=== PATIENT | male | born 1955 | race Asian ===

== ENCOUNTER 2020-08-06 09:58 | Outpatient (REF) | payer MEDICARE, MEDICAID, SELFPAY | END 2020-08-06 09:59 | disposition home or self-care (01) | LOC: HO.WFDLDS 09:58 | PROVIDERS: Visit Provider Internal Medicine | DX: Z20.828 Contact with and (suspected) exposure to other viral communicable diseases (principal) | CPT/HCPCS: C9803; U0003 ==

== ENCOUNTER 2021-01-07 13:42 | Outpatient (REF) | payer MEDICARE, MEDICAID, SELFPAY ==
[2021-01-07 13:58] LABS: Glucose Urine UA NEG (NEG); Leukocyte Esterase Urine NEG (NEG); Nitrite Urine NEG (NEG); PH 6.5 (5.0-8.0); Urine Blood NEG (NEG); Urine Ketones NEG (NEG); Urine Protein NEG (NEG-TRACE)
[2021-01-07 13:59] LABS: Appearance Urine CLEAR; Color Urine YELLOW
== END 2021-01-07 13:43 | disposition home or self-care (01) ==
LOC: HO.LNP 13:42
PROVIDERS: Visit Provider Family Medicine
DX: M54.5 Low back pain (principal)
CPT/HCPCS: 81003

== ENCOUNTER 2021-02-25 09:59 | Outpatient (REF) | payer MEDICARE, MEDICAID, SELFPAY ==
[2021-02-25 11:18] LABS: Glucose Urine UA NEG (NEG); Leukocyte Esterase Urine NEG (NEG); Nitrite Urine NEG (NEG); Urine Blood NEG (NEG); Urine Ketones NEG (NEG); Urine Protein NEG (NEG-TRACE)
[2021-02-25 11:22] LABS: Appearance Urine CLEAR; Color Urine YELLOW
[2021-02-25 12:04] LABS: Hematocrit 46.7 % (42-52); Hemoglobin 15.2 g/dl (14.0-18.0); Mean Corpuscular HGB Conc 32.5 g/dl (31.0-36.0); Mean Corpuscular Hemoglobin 27.8 pg (27.0-33.0); Mean Corpuscular Volume 85.5 fL (80-98); Mean Platelet Volume 9.5 fL (9.4-12.4); Platelet Count 263 X10*3/uL (160-400); Red Blood Count 5.46 X10*6/uL (4.60-5.80); Red Cell Distribution Width 13.6 % (11.0-16.0); White Blood Count 5.7 X10*3/uL (4.8-10.8)
[2021-02-25 12:19] LABS: Estimated Average Glucose 120 mg/dL; Hemoglobin A1c % 5.8 %
[2021-02-25 12:25] LABS: Prostate Specific Antigen Scr 2.08 ng/mL (<0.05-4.0); TSH reflex Free T4 0.95 uIU/mL (0.32-4.0)
[2021-02-25 12:44] LABS: Alanine Aminotransferase 20 U/L (0-40); Albumin Level 4.2 g/dL (3.5-5.0); Alkaline Phosphatase 97 U/L (39-117); Anion Gap 11 (12-20); Aspartate Amino Transferase 20 U/L (5-37); Bilirubin Total 1.1 mg/dL (0.0-1.0); Blood Urea Nitrogen 14 mg/dL (9-16); Calcium 8.9 mg/dL (8.4-10.2); Carbon Dioxide 26 mmol/L (22-29); Chloride 106 mmol/L (96-108); Cholesterol 228 mg/dL; Estimated Glomerular Filt Rate > 60; Glucose Fasting 106 mg/dL (60-99); HDL Cholesterol 43 mg/dL; LDL Cholesterol Calculated 158 mg/dl; Potassium 4.4 mmol/L (3.3-5.1); Sodium 139 mmol/L (135-145); Total Protein 6.9 g/dL (6.5-8.0); Triglycerides 135 mg/dL
== END 2021-02-25 10:00 | disposition home or self-care (01) ==
LOC: HO.WFDLDS 09:59
PROVIDERS: Family Medicine; Visit Provider Physician Assistant
DX: I10 Essential (primary) hypertension (principal); R73.09 Other abnormal glucose; E78.2 Mixed hyperlipidemia; M54.5 Low back pain; Z12.5 Encounter for screening for malignant neoplasm of prostate
CPT/HCPCS: 36415; 80053; 80061; 81003; 83036; 84153; 84443; 85027

== ENCOUNTER 2021-04-01 16:01 | Outpatient (REF) | payer MEDICARE, MEDICAID, SELFPAY | END 2021-04-01 16:02 | disposition home or self-care (01) | LOC: HO.XRAY 16:01 | PROVIDERS: PCP Physician Assistant; Visit Provider Family Medicine | DX: Z13.89 Encounter for screening for other disorder (principal) ==

== ENCOUNTER → 2021-04-14 15:48 | Outpatient (BNVA) | payer MEDICARE, MEDICAID, SELFPAY | PROVIDERS: PCP Physician Assistant; Referring Provider Physician Assistant; Visit Provider Surgery | DX: R22.32 Localized swelling, mass and lump, left upper limb (principal) | CPT/HCPCS: 99202 ==

== ENCOUNTER 2021-04-24 14:00 | Outpatient (RCR) | payer MEDICARE, MEDICAID, SELFPAY ==
--- NOTE | ~2021-04-24 | XR_ITS ---
EXAMINATION: XR HAND, LEFT CLINICAL INFORMATION: Cutaneous abscess of the left hand COMPARISON: None TECHNIQUE: PA, lateral, and oblique views of the left hand. FINDINGS: There is no visible acute fracture, dislocation or subluxation. The MCP joint space is maintained. No acute fracture, dislocation or lytic process seen. XR/XR hand LT min 3V IMPRESSION: Early degenerative changes PIP and DIP joints without bony erosive changes, spurring. No visible acute fracture or dislocation seen.
== END 2021-08-01 14:55 | disposition home or self-care (01) ==
LOC: HO.PTWFD 14:00
PROVIDERS: Visit Provider Family Medicine
DX: M54.5 Low back pain (principal)
CPT/HCPCS: 73130; 97110; 97140; 97162; 97535

== ENCOUNTER 2021-05-01 13:51 | Outpatient (REF) | payer MEDICARE, MEDICAID, SELFPAY ==
[2021-05-01 14:03] VITALS: BP 135/78; PULSE 68; RESP 16; TEMP 37.6; O2SAT 97; BMI 29.4
[2021-05-01 14:27] VITALS: BP 135/79; PULSE 79; RESP 16; O2SAT 98
--- NOTE | 2021-05-01 14:28 | W.PM.OPN ---
Operative Note Operative Note Date of Service: 05/01/21 Narrative: Preop diagnosis: Left thumb lesion Postop diagnosis: the same Procedure: Excision of left thumb lesion under local anesthesia Surgeon: Fausto Mann MD The patient is a 66-year-old male with note of a 4 mm lesion on the plantar aspect the left thumb which he says has been bothering him. This has been causing pain and discomfort. Examination shows a flat, ulcerating and granulomatous lesion about 4-5 mm in widest diameter. The technique of excision under local anesthesia. He was aware of the risks, benefits, and alternatives He was brought to the minor procedure room. He was placed supine. The area of the lesion was prepped and draped. Lidocaine 1% was used for local anesthesia. I made an elliptical incision around this lesion using a blade 15. This was carried down through the full-thickness of the skin and subcutaneous fat to excise the entire lesion. This appeared to be limited to the skin level. This was sent as specimen. I closed the incision full-thickness nylon 3 0 interrupted sutures. Dressings were applied. He tolerated procedure well. There were no complications noted. He will be seen in the office for follow-up visit for removal sutures.
== END 2021-05-01 13:52 | disposition home or self-care (01) ==
LOC: HO.MS 13:51
PROVIDERS: PCP Physician Assistant; Visit Provider Surgery
PROC: (CPT 26115; principal; 2021-05-01 13:40)
DX: D18.01 Hemangioma of skin and subcutaneous tissue (principal)
CPT/HCPCS: 26115; 88305

== ENCOUNTER → 2021-05-14 16:03 | Outpatient (BNVA) | payer MEDICARE, MEDICAID, SELFPAY | PROVIDERS: PCP Physician Assistant; Referring Provider Physician Assistant; Visit Provider Surgery | DX: D18.01 Hemangioma of skin and subcutaneous tissue (principal); E78.5 Hyperlipidemia, unspecified; Z48.02 Encounter for removal of sutures | CPT/HCPCS: 99212 ==

== ENCOUNTER 2021-10-03 14:05 | Outpatient (REF) | payer MEDICARE, MEDICAID, SELFPAY | END 2021-10-03 14:06 | disposition home or self-care (01) | LOC: HO.LNP 14:05 | PROVIDERS: Visit Provider Family Medicine | DX: J02.9 Acute pharyngitis, unspecified (principal); Z20.822 Contact with and (suspected) exposure to COVID-19 | CPT/HCPCS: U0003; U0005 ==

== ENCOUNTER 2021-10-06 18:09 | Outpatient (REF) | payer MEDICARE, MEDICAID, SELFPAY | END 2021-10-06 18:10 | disposition home or self-care (01) | LOC: HO.LNP 18:09 | PROVIDERS: Visit Provider Hospitalist | DX: Z20.822 Contact with and (suspected) exposure to COVID-19 (principal) | CPT/HCPCS: U0003; U0005 ==

== ENCOUNTER 2022-08-21 09:59 | Outpatient (REF) | payer MEDICARE, MEDICAID, SELFPAY ==
[2022-08-21 11:55] LABS: Hematocrit 46.9 % (42.0-52.0); Hemoglobin 15.3 g/dl (14.0-18.0); Mean Corpuscular HGB Conc 32.6 g/dl (31.0-36.0); Mean Corpuscular Hemoglobin 27.8 pg (27.0-33.0); Mean Corpuscular Volume 85.1 fL (80.0-98.0); Mean Platelet Volume 9.2 fL (9.4-12.4); Platelet Count 256 X10*3/uL (160-400); Red Blood Count 5.51 X10*6/uL (4.60-5.80); Red Cell Distribution Width 13.5 % (11.0-16.0); White Blood Count 5.6 X10*3/uL (4.8-10.8)
[2022-08-21 12:51] LABS: Estimated Average Glucose 120 mg/dL; Hemoglobin A1c % 5.8 %
[2022-08-21 14:26] LABS: Alanine Aminotransferase 18 U/L (0-40); Albumin Level 4.3 g/dL (3.5-5.0); Alkaline Phosphatase 94 U/L (39-117); Anion Gap 12 (12-20); Aspartate Amino Transferase 19 U/L (5-37); Bilirubin Total 0.8 mg/dL (0.0-1.0); Blood Urea Nitrogen 17 mg/dL (9-16); Calcium 9.2 mg/dL (8.4-10.2); Carbon Dioxide 28 mmol/L (22-29); Chloride 102 mmol/L (96-108); Cholesterol 246 mg/dL; Estimated Glomerular Filt Rate > 60; Glucose Fasting 102 mg/dL (60-99); HDL Cholesterol 42 mg/dL; LDL Cholesterol Calculated 179 mg/dl; Potassium 4.8 mmol/L (3.3-5.1); Prostate Specific Antigen Scr 1.79 ng/mL (<0.05-4.0); Sodium 137 mmol/L (135-145); TSH reflex Free T4 1.47 uIU/mL (0.32-4.0); Triglycerides 127 mg/dL
== END 2022-08-21 10:00 | disposition home or self-care (01) ==
LOC: HO.LAB 09:59
PROVIDERS: PCP Physician Assistant; Visit Provider Physician Assistant
DX: Z12.5 Encounter for screening for malignant neoplasm of prostate (principal); R73.09 Other abnormal glucose; E78.2 Mixed hyperlipidemia
CPT/HCPCS: 36415; 80053; 80061; 83036; 84153; 84443; 85027

== ENCOUNTER 2022-12-23 10:11 | Outpatient (REF) | payer MEDICARE, MEDICAID, SELFPAY ==
[2022-12-23 11:44] LABS: Hematocrit 47.1 % (42.0-52.0); Hemoglobin 15.5 g/dl (14.0-18.0); Mean Corpuscular HGB Conc 32.9 g/dl (31.0-36.0); Mean Corpuscular Hemoglobin 27.8 pg (27.0-33.0); Mean Corpuscular Volume 84.6 fL (80.0-98.0); Mean Platelet Volume 9.4 fL (9.4-12.4); Platelet Count 259 X10*3/uL (160-400); Red Blood Count 5.57 X10*6/uL (4.60-5.80); Red Cell Distribution Width 13.7 % (11.0-16.0); White Blood Count 5.1 X10*3/uL (4.8-10.8)
[2022-12-23 11:54] LABS: Estimated Average Glucose 117 mg/dL; Hemoglobin A1c % 5.7 %
[2022-12-23 12:36] LABS: Alanine Aminotransferase 23 U/L (0-40); Albumin Level 4.1 g/dL (3.5-5.0); Alkaline Phosphatase 96 U/L (39-117); Anion Gap 13 (12-20); Aspartate Amino Transferase 19 U/L (5-37); Bilirubin Total 0.6 mg/dL (0.0-1.0); Blood Urea Nitrogen 17 mg/dL (9-16); Calcium 8.6 mg/dL (8.4-10.2); Carbon Dioxide 26 mmol/L (22-29); Chloride 109 mmol/L (96-108); Cholesterol 189 mg/dL; Estimated Glomerular Filt Rate > 60; Glucose Fasting 113 mg/dL (60-99); HDL Cholesterol 34 mg/dL; LDL Cholesterol Calculated 139 mg/dl; Potassium 4.8 mmol/L (3.3-5.1); Prostate Specific Antigen Scr 1.72 ng/mL (<0.05-4.0); Sodium 143 mmol/L (135-145); TSH reflex Free T4 2.95 uIU/mL (0.32-4.0); Total Protein 6.7 g/dL (6.5-8.0); Triglycerides 82 mg/dL
== END 2022-12-23 10:12 | disposition home or self-care (01) ==
LOC: HO.LAB 10:11
PROVIDERS: PCP Physician Assistant; Visit Provider Physician Assistant
DX: E78.2 Mixed hyperlipidemia (principal); R73.09 Other abnormal glucose; Z12.5 Encounter for screening for malignant neoplasm of prostate
CPT/HCPCS: 36415; 80053; 80061; 83036; 84153; 84443; 85027

== ENCOUNTER 2023-04-28 08:11 | Outpatient (AMB) | payer MEDICARE, MEDICAID, SELFPAY ==
[2023-04-28 08:18] VITALS: BP 124/78; PULSE 69; O2SAT 97; BMI 29.5
--- NOTE | 2023-04-28 08:18 | MHC.PC.OV ---
Vital Signs 04/28/23 08:18 Height 5 ft 5 in Weight 177 lb BMI 29.5 BP 124/78 Blood Pressure Location Lt brachial Position Sitting Pulse 69 Pulse Source Pulse Oximeter Pulse Oximetry (%) 97 Oxygen Delivery Method Room Air Intake Visit Reasons: Back and leg pain Allergies No Known Allergies [No Known Allergies*] Allergy (Verified 04/28/23 08:25) Medication List - Last Reconciled 04/28/23 by Jossue Pickett PA-C alpha lipoic acid 600 mg PO BID 30 days atorvastatin 10 mg PO DAILY 90 days gabapentin 600 mg PO TID 30 days ketoconazole 2% 1 appl topical 3XW 4 weeks latanoprost 0.005% 1 drp ophthalmic (eye) BEDTIME lorazepam 0.5 mg PO DAILY 7 days magnesium oxide 500 mg PO BEDTIME 30 days qrxqtwyf-zpb-lneaj-vit K-lycop 400-20-370 mcg (One-A-Day Men's 50 Plus (with vitamin K)) 1 tab PO DAILY naproxen sodium (Aleve) 220 mg PO BID PRN pyridoxine (vitamin B6) 100 mg PO DAILY sildenafil (Viagra) 100 mg PO DAILY PRN 15 days tramadol 50 mg PO BID PRN 7 days Tobacco use date assessed: 12/24/22 Fall risk assessment: No Falls in past year Last assessed Fall Risk: 04/28/23 Dental Screening Dental Screen Date: 04/28/23 Did you have a dental visit in the last 12 months?: Yes Did you have a dental problem in the last 6 months where you did not have access to dental care?: No Was dental information given to patient?: Patient has dentist HPI Back and leg pain HPI Details Patient is a 68-year-old male here today for problem visit. Patient has a past medical history significant for polyneuropathy and lumbar disc disease. Has had lumbar disc surgery in the past that was done in [place]. He reports the surgery did not help his lower leg pain and weakness. Continues to use gabapentin and p.r.n. tramadol for his pain. Unfortunately continues to have progressively worsening lower extremity weakness and balance issue. He is interested in re-evaluation and possible physical therapy to help him with his balance. He would like a 2nd opinion from neural surgery. .. Otherwise reviewed most recent labs and noted impaired fasting glucose and much improved cholesterol. FOR[facility], [facility] Medical History Anxiety Colon cancer screening Hyperlipidemia Low back pain Mass of skin of left thumb Surgical History History of back surgery Family History Father No problems noted. Mother No problems noted. 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 1. Little interest or pleasure in doing things: not at all 2. Feeling down, depressed, or hopeless: not at all 3. Trouble falling or staying asleep, or sleeping too much: not at all 4. Feeling tired or having little energy: not at all 5. Poor appetite or overeating: not at all 6. Feeling bad about yourself - or that you are a failure or have let yourself or your family down: not at all 7. Trouble concentrating on things, such as reading the newspaper or watching television: not at all 8. Moving or speaking so slowly that other people could have noticed. Or the opposite - being so fidgety or restless that you have been moving around a lot more than usual: not at all 9. Thoughts that you would be better off or of hurting yourself in some way: not at all Total score: 0 Depression Screening Interpretation: Negative Source: Developed by Drs. Julián Rodas, Candis Jonas, Ricci Ivan and colleagues, with an educational steve from [employer]. Thrive Questionnaire Date Thrive assessed: 12/24/22 AUDIT C Alcohol Use Questionnaire (AUDIT-C) 1. How often do you have a drink containing alcohol?: Monthly or less 2. How many drinks containing alcohol do you have on a typical day when you are drinking?: 1 or 2 3. How often do you have six or more drinks on one occasion?: Never Total Score: 1 VINNIE-7 AMB Questionnaire VINNIE-7 Date VINNIE - 7 assessed: 12/24/22 Source: Developed by Drs. Julián Rodas, Candis Jonas, Ricci Ivan and colleagues, with an educational steve from [employer]. Review of Systems Const Denies headache(s) Eyes Denies loss of vision ENT Denies vertigo, Denies dizziness, Denies headache(s) and Denies sore throat Card Denies chest pain, Denies leg edema and Denies lightheadedness Resp Denies cough, Denies hemoptysis and Denies wheezing GI Denies abdominal pain, Denies melena, Denies constipation, Denies diarrhea and Denies vomiting Denies dysuria, Denies urinary frequency and Denies urinary urgency Musc Denies arthralgias, Denies joint swelling, Denies numbness and Denies tingling Neuro Denies Abnormal speech present, Denies behavioral changes, Denies vertigo, Denies dizziness, Denies headache(s), Denies loss of vision, Denies memory loss, Denies numbness and Denies tingling Psych Denies anxiety, Denies behavioral changes, Denies depression, Denies memory loss and Denies panic attacks Nathan/Lymph Denies easy bleeding and Denies easy bruising Aller/Immun Denies wheezing Physical exam (Primary Care) Vital Signs: Last Vital Signs Pulse 69 04/28/23 08:18 BP 124/78 04/28/23 08:18 Pulse Ox 97 04/28/23 08:18 Oxygen Delivery Method Room Air 04/28/23 08:18 BMI result Body Mass Index 29.5 Tobacco/Smoking Status: Tobacco use Status Tobacco use date assessed 12/24/22 04/28/23 08:22 Patient Tobacco Use Status Never used Tobacco 04/28/23 08:22 e-Cigarette/Vaping Use Never Used 04/28/23 08:22 PHQ-9: PHQ-9 Score PHQ-9: Total score 0 04/28/23 08:54 Depression Screening Interpretation: Negative Thrive Assessment: Date of Thrive Assessment Date Thrive assessed 12/24/22 04/28/23 08:22 Const General: healthy appearing, no acute distress, alert and awake Nutritional Appearance: well nourished Orientation/consciousness: oriented to person, oriented to place and oriented to time HENMT Ears: TM's normal bilaterally General nose exam: Normal nasal mucous membranes and turbinates present Eyes Conjunctivae: conjunctivae normal Sclerae: sclerae normal Pupils: Equal, round and reactive pupils present Neck Neck: Yes no lymphadenopathy and Yes no JVD Thyroid: Thyroid normal Carotids: no bruits Resp Effort & Inspection: normal respiratory effort and not tachypneic Auscultation: no crackles, no rales, no rhonchi and no wheezes Cardio Rate: regular rate Rhythm: regular rhythm Heart sounds: no murmurs and normal S1 and S2 GI Palpation (GI): Soft to palpation, nontender, no hepatomegaly and no splenomegaly Auscultation: normal bowel sounds Skin General skin exam: no rashes or lesions noted and dry skin Neuro Other: NOTED SOME UNSTEADINESS ON FEET WHILE WALKING AND STANDING. General: oriented to person, oriented to place and oriented to time Cranial nerves: Yes Equal, round and reactive pupils present Speech: No Abnormal speech present Gait exam (Neuro): gait abnormal Motor exam (neuro): no tremor noted Extrem Right upper extremity: full ROM Left upper extremity: full ROM Right lower extremity: full ROM; no edema Left lower extremity: full ROM; no edema Psych Mental Status: mental status grossly normal Speech and movement: Normal speech and movement present Affect: normal affect Attitude: cooperative Thought process: Normal thought process present Assessment and Plan Assessment & Plan (1) Lumbar disc disease with radiculopathy: Code(s): M51.16 - Intervertebral disc disorders with radiculopathy, lumbar region Plan: Has lumbar disc disease and status post surgery in 2020 in [place]. Unfortunately continues to have lower lumbar spine pain and weakness in lower extremities. Also has balance issue due to his weakness in his lower extremities. He continues with the use gabapentin and p.r.n. tramadol for his pain. He would like a 2nd opinion from neurosurgeon thus will get MRI and refer to physical therapy for his balance issue. (2) Polyneuropathy: Code(s): G62.9 - Polyneuropathy, unspecified (3) Weakness of lower extremity: Code(s): R29.898 - Other symptoms and signs involving the musculoskeletal system Qualifiers: Laterality: bilateral Qualified Code(s): R29.898 - Other symptoms and signs involving the musculoskeletal system Plan: As above (4) Balance problem: Code(s): R26.89 - Other abnormalities of gait and mobility Orders: Orders XR hips [place] min 3V Today M25.551 - Pain in right hip, M25.552 - Pain in left hip, R26.89 - Other abnormalities of gait and mobility Comprehensive Jennings. Panel Fast Today R73.09 - Other abnormal glucose Hemoglobin A1c Today R73.09 - Other abnormal glucose Lipid Panel Today E78.2 - Mixed hyperlipidemia PT Evaluation and Treatment Today R29.898 - Other symptoms and signs involving the musculoskeletal system MR lumbar spine wo/w con Today M51.16 - Intervertebral disc disorders with radiculopathy, lumbar region Referrals Neurosurgery Referral G62.9 - Polyneuropathy, unspecified, M51.16 - Intervertebral disc disorders with radiculopathy, lumbar region, R29.898 - Other symptoms and signs involving the musculoskeletal system Medications: New tadalafil 20 mg PO DAILY 10 days PRN 10 tabs 0RF sexual activity N52.9 - Male erectile dysfunction, unspecified Refilled gabapentin 600 mg PO TID 30 days 90 tabs 3RF G62.9 - Polyneuropathy, unspecified tramadol 50 mg PO BID 7 days PRN 14 tabs 0RF pain M54.5 - Low back pain Discontinued sildenafil (Viagra) Discontinued Reason: Doctor's Order 100 mg PO DAILY 15 days PRN 15 tabs 0RF sexual activity G62.9 - Polyneuropathy, unspecified, N52.9 - Male erectile dysfunction, unspecified atorvastatin Discontinued Reason: Doctor's Order 10 mg PO DAILY 90 days 90 tabs 1RF E78.2 - Mixed hyperlipidemia Coding Level of Care Code Est Pt Level 4 (39542) Diagnoses Lumbar disc disease with radiculopathy M51.16 Polyneuropathy G62.9 Weakness of lower extremity R29.898 Laterality: bilateral Balance problem R26.89
== END 2023-04-28 08:54 | disposition home or self-care (01) ==
PROVIDERS: PCP Physician Assistant; Visit Provider Physician Assistant
DX: M51.16 Intervertebral disc disorders with radiculopathy, lumbar region (principal); G62.9 Polyneuropathy, unspecified; R29.898 Other symptoms and signs involving the musculoskeletal system; R26.89 Other abnormalities of gait and mobility
CPT/HCPCS: 99214

== ENCOUNTER 2023-06-16 08:08 | Outpatient (REF) | payer MEDICARE, MEDICAID, SELFPAY ==
--- NOTE | ~2023-06-16 | MR_ITS ---
EXAMINATION: MR LUMBAR SPINE WITHOUT AND WITH CONTRAST CLINICAL INFORMATION: 68-year-old with radiculopathy, lumbar region and intervertebral disc disorders. Persistent low back pain and lower extremity weakness with gait instability. Prior surgery in 2019. COMPARISON: 03/02/2018 MRI TECHNIQUE: MRI of the lumbar spine was obtained using routine sequences with and without contrast. Intravenous contrast: Gadavist 8 mL. FINDINGS: CORONAL ALIGNMENT: Slight S-shaped scoliotic curvature, minimally convex to the left at L4-L5 and to the right at L2-L3 stable in appearance. SAGITTAL ALIGNMENT: The lumbosacral spine is anatomically aligned in the sagittal plane stable in appearance. LUMBOSACRAL JUNCTION: Normal. There are 5 [id number] lumbar-type vertebral bodies. VERTEBRAL BODIES: Stable vertebral body heights. No interval compression fractures. DISC SPACES AND ENDPLATES: Moderate to severe disc space height loss asymmetric to the right at L3-L4 progressed from previous exam, with progression of central Schmorl's nodes. Spondylosis at this level is similar to the previous exam with intradiscal degenerative signal changes similar to prior study. Remaining intervertebral disc space heights are well-maintained from previous exam with stable multilevel disc desiccation and spondylosis with a Schmorl's node along the inferior endplate of L2 stable in appearance. Schmorl's nodes are noted to enhance at L3-L4 and along the inferior endplates of L2 and L4. SPINAL CANAL: See below. BONE MARROW: Minor type I degenerative marrow signal changes noted along the endplates asymmetric to the right at L3-L4 similar to previous exam. Minimal type I marrow signal change along the inferior endplate of L2 stable in appearance. There is mild marrow edema in the right L3 and L4 pedicles on current study which is nonspecific. No other bone marrow edema. Bone marrow signal intensity is otherwise grossly unremarkable. CONUS MEDULLARIS: Terminates at L1. Morphology and signal is normal. No abnormal enhancement. INTRADURAL NERVE ROOTS: Crowding of the intradural nerve roots at L3-L4. See below. Otherwise within normal limits. No abnormal intradural enhancement. L5-S1: Trace annular bulging again noted with slight flattening of the ventral dural sac stable in appearance. Mild bilateral facet arthropathy, right more than left, largely unchanged in appearance without significant spinal canal stenosis. Minor foraminal narrowing is noted bilaterally unchanged without neural impingement. L4-L5: Diffuse annular bulging is again noted, now with concentric annular fissuring noted, right more than left progressed from previous study. Slightly more prominent bulging noted with flattening of the ventral dural sac slightly progressed from previous exam. Ligamentum flavum thickening is again noted stable in appearance. Moderate bilateral facet arthrosis is similar to prior study. AP diameter of the thecal sac on current study is 7 mm compared to 8 mm on the previous exam still consistent with mild central spinal canal stenosis, now with mild narrowing of the right subarticular recess since previous study without definite neural impingement. There is moderate to severe proximal bilateral neural foraminal stenosis again noted with encroachment on the exiting L4 nerve roots bilaterally, right more than left, stable on the left and slightly progressed on the right. L3-L4: Status post bilateral laminectomy for canal decompression at this level since the previous exam, with enhancing soft tissue in the ventral and posterolateral epidural spaces, which is consistent with scar tissue. AP canal dimension has improved since the previous preoperative exam. There is concentric disc bulging, with some enhancement in the dorsal annular fibers of the disc which may be partly related to previous surgery and/or possibly some degree of granulation tissue related to disc bulging with annular fissuring. There is slight flattening of the dural sac asymmetric to the right related to this. There is facet arthropathy noted bilaterally, moderate in degree and there is intra-articular and periarticular enhancement related to the right facet joint suggesting right-sided facet joint inflammatory changes on the current exam. There is crowding of the subarticular zones bilaterally. There is moderate to severe bilateral neural foraminal stenosis progressed from the previous exam with impingement on the exiting L3 nerve roots bilaterally. L2-L3: Diffuse disc bulging and a tiny central disc protrusion stable in appearance with minimal indentation of the ventral thecal sac similar to previous exam. [id number] facet arthropathy left more than right and ligamentum flavum thickening noted slightly progressed. There is now [id number] left-sided subarticular recess stenosis since the previous study with stable mild central canal narrowing. Mild foraminal narrowing is again noted bilaterally unchanged. L1-L2: Normal annular contour. Minor facet arthrosis. No canal or neural foraminal stenosis. PARAVERTEBRAL AND INCLUDED EXTRASPINAL SOFT TISSUES: Some enhancement is noted in the soft tissues posterior to the laminectomy defect, likely postoperative. Otherwise, the paravertebral soft tissues appear grossly unremarkable. There is suspicion for either a prominent cortical lobulation or possibly a 2 cm exophytic cortical mass arising from the lower pole of the left kidney which is stable in size and configuration from previous study. Recommend renal ultrasound to further assess this. MR/MR lumbar spine wo/w con IMPRESSION: Status post bilateral laminectomy at L3-L4 since the previous exam, with enhancing epidural scar tissue in the ventral and posterolateral epidural spaces at this level. There is concentric disc bulging at this level, with bilateral facet arthropathy and moderate to severe bilateral neural foraminal stenosis progressed from previous exam with impingement on the exiting L3 nerve roots bilaterally. Mild narrowing of the subarticular zones bilaterally with some progression of disc bulging at this level, with improvement in the central spinal canal dimensions since previous preoperative study. Disc bulging and central disc protrusion at L2-L3 with facet arthropathy again noted, now with [id number] left-sided subarticular recess stenosis and stable mild central canal stenosis with stable mild foraminal narrowing bilaterally at this level. Disc bulging at L4-L5, now with concentric annular fissuring, right more than left progressed from previous exam with stable facet arthropathy and mild central canal stenosis with moderate to severe bilateral neural foraminal stenosis, right more than left, slightly progressed on the right with encroachment on the exiting L4 nerve roots bilaterally, right more than left. Stable minimal annular bulging at L5-S1 and stable mild bilateral facet arthropathy at this level. Question of a 2 cm exophytic enhancing mass arising from the lower pole of the left kidney which appears stable from previous exam. Recommend renal ultrasound to further assess this. The [facility] staff will call to confirm receipt of this report with acknowledgement of the findings and any recommendations.
[2023-06-16] MEDS: gadobutroL 10 ML VIAL IVPUSH (09:12)
== END 2023-06-16 08:09 | disposition home or self-care (01) ==
LOC: HO.MRI 08:08
PROVIDERS: PCP Physician Assistant; Visit Provider Physician Assistant
DX: M51.16 Intervertebral disc disorders with radiculopathy, lumbar region (principal)
CPT/HCPCS: 72158; A9585

== ENCOUNTER 2023-07-02 13:11 | Outpatient (REF) | payer MEDICARE, MEDICAID, SELFPAY ==
--- NOTE | ~2023-07-02 | XR_ITS ---
EXAMINATION: XR BILATERAL HIPS WITH AP PELVIS CLINICAL INFORMATION: Bilateral hip pain COMPARISON: None available. TECHNIQUE: AP view of the pelvis and single views of each hip were obtained. FINDINGS: No fracture. Hip joint spaces are maintained. Alignment is anatomic. Sacroiliac joints and pubic symphysis are normal. No abnormal soft tissue calcifications. XR/XR hips [place] min 3V IMPRESSION: Unremarkable AP pelvis and bilateral hip exam.
--- NOTE | ~2023-07-02 | XR_ITS ---
EXAMINATION: XR KNEE, RIGHT CLINICAL INFORMATION: Right knee pain COMPARISON: None available. TECHNIQUE: Four views of the right knee. FINDINGS: Mild lateral joint space narrowing. No significant joint effusion. Minimal tiny lateral marginal osteophytes. XR/XR knee RT 4V IMPRESSION: Mild degenerative changes.
--- NOTE | ~2023-07-02 | US_ITS ---
EXAMINATION: US RETROPERITONEAL LIMITED (RENAL ONLY) CLINICAL INFORMATION: Recent MRI lumbar spine of 06/16/2023 incidentally noted 2 cm exophytic enhancing mass arising from the lower pole of the left kidney. COMPARISON: MRI lumbar spine 06/16/2023. TECHNIQUE: Real-time imaging of the left kidney. Limited visualization due to bowel gas. FINDINGS: LEFT KIDNEY: 11.0 x 4.5 x 4.1 cm (SAG x AP x TRV). No hydronephrosis. No renal calculi. Renal cortical thickness is normal. Limited visualization. There is a 2.0 x 1.9 x 2.0 cm lateral midpole hypoechoic mass with irregular margins. US/US renal LT IMPRESSION: A 2.0 cm left renal lateral midpole hypoechoic, suspicious mass. MRI lumbar spine 06/16/2023 had also demonstrated possible renal mass. Dedicated CT scan or MRI with intravenous contrast employing renal mass protocol recommended for further evaluation. Urology consultation also recommended.
== END 2023-07-02 13:12 | disposition home or self-care (01) ==
LOC: HO.US 13:11
PROVIDERS: PCP Physician Assistant; Visit Provider Physician Assistant
DX: N28.89 Other specified disorders of kidney and ureter (principal); R26.89 Other abnormalities of gait and mobility; M25.551 Pain in right hip; M25.552 Pain in left hip
CPT/HCPCS: 73522; 73564; 76775

== ENCOUNTER 2023-09-02 08:56 | Outpatient (AMB) | payer MEDICARE, MEDICAID, SELFPAY ==
--- NOTE | 2023-09-02 09:04 | A.OFFVIS_ITS ---
Intake Intake Visit Reasons: Other specified disorders of kidney and ureter Intake Note: NEW Patient presents today to established treatment for Disorder of Kidney & Ureter: Meds- None Allergies to Antibiotic- No Known Allergies Blood Thinner- None Trimmer Sawyer Required: No Accompanied by: Self / Same As Patient Allergies No Known Allergies [No Known Allergies*] Allergy (Verified 09/02/23 14:31) Medication List - Last Reconciled 09/02/23 by Norris Shrestha MD alpha lipoic acid 600 mg PO BID 30 days gabapentin 600 mg PO TID 30 days ketoconazole 2% 1 appl topical 3XW 4 weeks latanoprost 0.005% 1 drp ophthalmic (eye) BEDTIME lorazepam 0.5 mg PO DAILY 7 days magnesium oxide 500 mg PO BEDTIME 30 days rkgiscef-kut-boaim-vit K-lycop 400-20-370 mcg (One-A-Day Men's 50 Plus (with vitamin K)) 1 tab PO DAILY naproxen sodium (Aleve) 220 mg PO BID PRN pyridoxine (vitamin B6) 100 mg PO DAILY tadalafil 20 mg PO DAILY PRN 10 days tramadol 50 mg PO BID PRN 7 days HPI HPI Comments History of Present Illness Details Agutso is a 68 y/o who is here for evaluation for renal mass The patient denies urinary symptoms, denies gross hematuria I have reviewed chart, imaging - 07/02/23--Renal US: 2.0 cm left renal lateral midpole hypoechoic, suspicious mass. Plan: CT - abdomen- renal mass protocol [facility] Medical History Colon cancer screening Mass of skin of left thumb Hyperlipidemia Anxiety Low back pain Surgical History History of back surgery Family History Father No problems noted. Mother No problems noted. 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 Cognitive needs: Yes Hearing needs: No Vision needs: Yes Review of Systems Const All systems reviewed & are unremarkable except as noted in HPI and below Reports no additional complaints Eyes Reports no additional complaints ENT Reports no additional complaints Card Denies dyspnea Resp Denies cough and Denies dyspnea GI Reports no additional complaints Musc Reports no additional complaints Skin/Breast Denies rash and Denies unusual bruising Neuro Reports no additional complaints Psych Reports no additional complaints Endo Reports no additional complaints Nathan/Lymph Reports no additional complaints Aller/Immun Reports no additional complaints Physical Exam Const General: healthy appearing, no acute distress and well developed Orientation/consciousness: patient oriented x3 HEENT Head: Yes normocephalic and Yes atraumatic Eyes Conjunctivae: conjunctivae normal Neck Neck: Yes normal visual inspection Chest Chest palpation & inspection: normal inspection of the chest Resp Effort & Inspection: normal respiratory effort Cardio Rate: regular rate GI Inspection: Yes normal to inspection Palpation (GI): Soft to palpation Skin General skin exam: no rashes or lesions noted Neuro General: patient oriented x3 Extrem General: No pedal edema Psych Appearance: grossly normal Affect: normal affect Results Reviewed Results Reviewed: Date of Service: 07/02/23 EXAMINATION: US RETROPERITONEAL LIMITED (RENAL ONLY) CLINICAL INFORMATION: Recent MRI lumbar spine of 06/16/2023 incidentally noted 2 cm exophytic enhancing mass arising from the lower pole of the left kidney. COMPARISON: MRI lumbar spine 06/16/2023. TECHNIQUE: Real-time imaging of the left kidney. Limited visualization due to bowel gas. FINDINGS: LEFT KIDNEY: 11.0 x 4.5 x 4.1 cm (SAG x AP x TRV). No hydronephrosis. No renal calculi. Renal cortical thickness is normal. Limited visualization. There is a 2.0 x 1.9 x 2.0 cm lateral midpole hypoechoic mass with irregular margins. IMPRESSION: A 2.0 cm left renal lateral midpole hypoechoic, suspicious mass. MRI lumbar spine 06/16/2023 had also demonstrated possible renal mass. Dedicated CT scan or MRI with intravenous contrast employing renal mass protocol recommended for further evaluation. Urology consultation also recommended. Assessment & Plan Assessment & Plan (1) Left kidney mass: Code(s): N28.89 - Other specified disorders of kidney and ureter (2) Renal mass of unknown nature: Code(s): N28.89 - Other specified disorders of kidney and ureter Plan CT abd- renal mass protocol Orders: Orders CT abdomen wo/w IV con 09/02/23 N28.89 - Other specified disorders of kidney and ureter Patient Instructions: The patient had an opportunity to ask questions regarding treatment plan. All questions were answered. Imaging, Laboratory studies and physical exam results were discussed and reviewed in detail. No major barriers to understanding were identified. The patient expressed understanding and agreement with the above treatment plan. The patient is aware they should contact our office by phone for worsening of their current condition or the appearance of new symptoms. Compliance is encouraged with any medications and followup testing that is ordered. It is a privilege to be allowed the opportunity to participate in the urologic care of your patient. If you have any questions or concerns regarding treatment for the above conditions please do not hesitate to contact me. The office telephone contact is [phone]. This note is constructed in part using voice recognition software. While every effort has been made to ensure accuracy heavy threader errors may have been included. Yours sincerely, Norris Shrestha MD Coding Level of Care Code New Pt Level 4 (28328) Diagnoses Left kidney mass N28.89 Renal mass of unknown nature N28.89
== END 2023-09-02 09:50 | disposition home or self-care (01) ==
PROVIDERS: PCP Physician Assistant; Visit Provider Urology
DX: N28.89 Other specified disorders of kidney and ureter (principal)
CPT/HCPCS: 99204

== ENCOUNTER 2023-09-02 08:56 | Outpatient (REF) | payer MEDICARE, MEDICAID, SELFPAY ==
[2023-09-02 11:31] LABS: Estimated Average Glucose 117 mg/dL; Hemoglobin A1C 151.3716 umol/L; Hemoglobin A1c % 5.7 % (<6.0)
[2023-09-02 11:45] LABS: Alanine Aminotransferase 18 U/L (0-40); Albumin Level 4.1 g/dL (3.5-5.0); Alkaline Phosphatase 88 U/L (39-117); Anion Gap 11 (12-20); Aspartate Amino Transferase 15 U/L (5-37); Bilirubin Total 0.6 mg/dL (0.0-1.0); Blood Urea Nitrogen 16 mg/dL (9-16); Calcium 9.2 mg/dL (8.4-10.2); Carbon Dioxide 29 mmol/L (22-29); Chloride 105 mmol/L (96-108); Cholesterol 225 mg/dL (<200); Estimated Glomerular Filt Rate > 60; Glucose Fasting 109 mg/dL (60-99); HDL Cholesterol 43 mg/dL (>40); Iron 95 mcg/dL (45-160); LDL Cholesterol Calculated 150 mg/dL (<100); Magnesium 2.2 mg/dL (1.6-2.6); Percent Iron Saturation 35 % (15-50); Potassium 4.5 mmol/L (3.3-5.1); Sodium 140 mmol/L (135-145); Total Iron Binding Capacity 275 mcg/dL (228-428); Total Protein 7.1 g/dL (6.5-8.0); Triglycerides 162 mg/dL (<150); Unsaturated Iron Binding 180 ug/dL
[2023-09-02 12:22] LABS: Folate 13.8 ng/mL (> or = 4.0); Vitamin B12 618 pg/mL (200-900)
== END 2023-09-02 08:57 | disposition home or self-care (01) ==
LOC: HO.LAB 08:56
PROVIDERS: PCP Physician Assistant; Visit Provider Urology
DX: N28.89 Other specified disorders of kidney and ureter (principal); R73.09 Other abnormal glucose; G62.9 Polyneuropathy, unspecified; E78.2 Mixed hyperlipidemia; D50.9 Iron deficiency anemia, unspecified
CPT/HCPCS: 36415; 80053; 80061; 82607; 82746; 83036; 83540; 83735; 99202

== ENCOUNTER 2023-09-02 13:22 | Outpatient (AMB) | payer MEDICARE, MEDICAID, SELFPAY ==
[2023-09-02 13:30] VITALS: BP 124/70; PULSE 66; BMI 29.5
--- NOTE | 2023-09-02 13:30 | MHC.PC.OV ---
Vital Signs 09/02/23 13:30 Height 5 ft 5 in Intake Visit Reasons: AWV Allergies No Known Allergies [No Known Allergies*] Allergy (Verified 09/02/23 09:23) Tobacco use date assessed: 12/24/22 [facility] Medical History Colon cancer screening Mass of skin of left thumb Hyperlipidemia Anxiety Low back pain Surgical History History of back surgery Family History Father No problems noted. Mother No problems noted. 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 Julián Rodas, Candis Jonas, Ricci Ivan and colleagues, with an educational steve from [employer]. Physical exam (Primary Care) Tobacco/Smoking Status: Tobacco use Status Tobacco use date assessed 12/24/22 04/28/23 08:22 Patient Tobacco Use Status Never used Tobacco 04/28/23 08:22 e-Cigarette/Vaping Use Never Used 04/28/23 08:22 Thrive Assessment: Date of Thrive Assessment Date Thrive assessed 12/24/22 04/28/23 08:22 Coding
--- NOTE | 2023-09-02 13:36 | AM.OFFVISMDC ---
Intake Vital Signs 09/02/23 13:30 Height 5 ft 5 in Weight 177 lb 4 oz BMI 29.5 BP 124/70 Blood Pressure Location Lt brachial Position Sitting Pulse 66 Pulse Source Palpation Intake Visit Reasons: AWV Intake Note: Patient is here for an Annual Wellness Visit. Commercial Front Load Driver Required: No Accompanied by: Self / Same As Patient Allergies No Known Allergies [No Known Allergies*] Allergy (Verified 09/02/23 14:31) Medication List - Last Reconciled 09/02/23 by Jossue Pickett PA-C alpha lipoic acid 600 mg PO BID 30 days atorvastatin 10 mg PO DAILY 90 days gabapentin 600 mg PO TID 30 days ketoconazole 2% 1 appl topical 3XW 4 weeks latanoprost 0.005% 1 drp ophthalmic (eye) BEDTIME lorazepam 0.5 mg PO DAILY 7 days magnesium oxide 500 mg PO BEDTIME 30 days kdjrwerf-akm-hmfil-vit K-lycop 400-20-370 mcg (One-A-Day Men's 50 Plus (with vitamin K)) 1 tab PO DAILY naproxen sodium (Aleve) 220 mg PO BID PRN pyridoxine (vitamin B6) 100 mg PO DAILY tadalafil 20 mg PO DAILY PRN 10 days tramadol 50 mg PO BID PRN 7 days HPI AWV HPI Details Patient is a 68 year male here today for annual wellness visit. Today we discussed patient's agdaagux of care and end of life planning. He was given a MOLST form. Continues to have right knee pain likely secondary to compensation from his lower lumbar spine disc disease. Also has lower extremity weakness. Will refer to physiatry for evaluation and strengthening techniques of his lower extremities Vaccines: Up-to-date COVID vaccine, up-to-date pneumonia vaccine, up-to-date tetanus vaccine, needs shingles Colorectal cancer screening: Cologuard negative in 2019 Laboratory Tests 04/26/19 05/14/20 05/14/20 11:40 11:23 11:23 RBC Hgb Creatinine Fasting Glucose 105 H 100 H Hemoglobin A1c % Cholesterol 261 Triglycerides LDL Cholesterol, C alc 184 PSA Screen TSH 02/25/21 08/21/22 12/23/22 10:05 10:23 10:31 RBC 5.46 5.51 Hgb 15.2 15.3 Creatinine 1.09 Fasting Glucose 106 H 102 H 113 H Hemoglobin A1c % 5.8 5.8 Cholesterol 228 246 Triglycerides 127 LDL Cholesterol, C alc 158 179 PSA Screen 2.08 1.79 TSH 0.95 1.47 12/23/22 12/23/22 09/02/23 10:31 10:31 10:36 RBC Hgb Creatinine Fasting Glucose 109 H Hemoglobin A1c % 5.7 Cholesterol 189 Triglycerides LDL Cholesterol, C alc 139 PSA Screen 1.72 TSH 09/02/23 09/02/23 10:36 10:36 RBC Hgb Creatinine Fasting Glucose Hemoglobin A1c % Cholesterol 225 H Triglycerides LDL Cholesterol, C alc 150 H PSA Screen TSH HPI Comments History of Present Illness Details reviewed past medical history- yes reviewed surgical / hospitalization history- yes reviewed current medications- yes reviewed family history- yes home safety throw rugs? grab bars? raised toilet seat? working smoke detectors? activities of daily living difficulty bathing or showering? difficulty dressing? difficulty using the toilet? difficulty getting in and out of bed? difficulty walking? receives help from other person's with any of the above tasks? instrumental activities of daily living uses telephone - gets to place out of walking distance- go shopping for groceries- repairs own meals- does own minor home maintenance- does own laundry- does own housework- manages own money- currently takes medication- end of life planning discussed advanced directives- yes advanced directives on file? discussed wishes expressed in advanced directives. fall risk have you had any falls with injuries in the past year? have you had 2 or more falls in the past year? fall risk assessment: [facility] Medical History Colon cancer screening Mass of skin of left thumb Hyperlipidemia Anxiety Low back pain Surgical History History of back surgery Family History Father No problems noted. Mother No problems noted. 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 Cognitive needs: Yes Hearing needs: No Vision needs: Yes Questionnaire Medicare Wellness Checkup [age] What gender do you identify with?: male During the past 4 weeks, how much have you been bothered by emotional problems such as feeling anxious, depressed, irritable, sad or downhearted, and blue?: slightly During the past 4 weeks, has your physical & emotional health limited your social activities with family, friends, neighbors, or groups?: quite a bit During the past 4 weeks, how much bodily pain have you generally had?: moderate pain During the past 4 weeks, was someone available to help you if you needed & wanted help?: yes, as much as I wanted During the past 4 weeks, what was the hardest physical activity you could do for at least 2 minutes?: light Can you get to places out of walking distance without help? (For eg., can you travel alone on buses, taxis or drive your car?): Yes Can you go shopping for groceries or clothes without someone's help?: Yes Can you prepare your own meals?: No Can you do your housework without help?: No Because of any health problems, do you need the help of another person with your personal care needs such as eating, bathing, dressing or getting around the house?: No Can you handle your own money without help?: Yes During the past 4 weeks, how would you rate your health in general?: fair During the past 4 weeks how have things been going for you?: good & bad parts about equal Are you having difficulties driving your car?: no Do you always fasten your seat belt when you are in a car?: yes, usually During past 4 weeks, have you been bothered by the following: never: Falling or dizzy when standing up, Trouble eating well?, Teeth or denture problems? and Problems using the telephone? and often: Sexual problems? and Tiredness or fatigue? Have you fallen 2 or more times in the past year?: No Are you afraid of falling?: Yes Are you a smoker?: no During the past 4 weeks, how many drinks of wine, beer, or other alcoholic beverages did you have?: no alcohol at all Do you exercise for about 20 minutes 3 or more times a week?: yes, most of the time Have you been given information to help with the following?: no: Hazards in your house that might hurt you? and no: Keeping track of your medications? How often do you have trouble taking medicines the way you have been told to take them?: I always take medicine as prescribed How confident are you that you can control & manage most of your health problems?: somewhat confident What is your race?: Activity of Daily Living Bathing - sponge bath, tub bath or shower: receives no assistance (gets in/out by self, if usual bathing means Dressing - getting clothes from closets & drawers, including inner/outer garments & fasteners.: gets clothes & gets completely dressed without help Toileting - going to the 'toilet room' for urine/bowel elimination & cleaning self/arranging clothes: goes to toilet room, cleans self, arranges clothes without help Transfer: moves in & out of bed and chair without help (may use support object) Continence: controls urination/bowel movements completely by self Feeding: feeds self without help Total Score: 0 Information obtained from: patient Using telephone: independent Traveling: independent Shopping: independent Preparing meals: independent Housework: independent Taking medicine: independent Managing money: independent PHQ-9 Over the last 2 weeks, how often have you been bothered by any of the following problems? 1. Little interest or pleasure in doing things: not at all 2. Feeling down, depressed, or hopeless: not at all 3. Trouble falling or staying asleep, or sleeping too much: not at all 4. Feeling tired or having little energy: not at all 5. Poor appetite or overeating: not at all 6. Feeling bad about yourself - or that you are a failure or have let yourself or your family down: not at all 7. Trouble concentrating on things, such as reading the newspaper or watching television: not at all 8. Moving or speaking so slowly that other people could have noticed. Or the opposite - being so fidgety or restless that you have been moving around a lot more than usual: not at all 9. Thoughts that you would be better off or of hurting yourself in some way: not at all Total score: 0 Depression Screening Interpretation: Negative Depression Screening Done: Yes 45771 - PHQ-9 Billing: Yes Source: Developed by Drs. Julián Rodas, Candis Jonas, Ricci Ivan and colleagues, with an educational steve from [employer]. Physical Exam Vital Signs: BMI result Body Mass Index 29.5 HEENT Other: hearing screening whisper test- pass Eyes Other: vision screening- corrective lenses- 20/20- OS OD OU Other: urinary incontinence? No Neuro Other: balance Romberg- normal tandem walk test- able walk-in turned test- able rise from sit to stand- within 2 seconds Assessment & Plan Assessment & Plan (1) Medicare annual wellness visit, initial: Code(s): Z00.00 - Encounter for general adult medical examination without abnormal findings Plan: Went over patient's agdaagux of care and given a MOLST form which was filled out today Patient full code (2) Weakness of lower extremity: Code(s): R29.898 - Other symptoms and signs involving the musculoskeletal system Qualifiers: Laterality: bilateral Qualified Code(s): R29.898 - Other symptoms and signs involving the musculoskeletal system Plan: As per HPI patient continues have weakness in his lower extremities. Has been having right knee pain consistent with a tendinitis. X-ray showing mild arthritis. Will refer to physiatry to help him regain strength in his lower extremities and help him with his balance. (3) Osteoarthritis of right knee: Code(s): M17.11 - Unilateral primary osteoarthritis, right knee Qualifiers: Osteoarthritis type: primary Qualified Code(s): M17.11 - Unilateral primary osteoarthritis, right knee Plan: As above (4) HLD (hyperlipidemia): Code(s): E78.5 - Hyperlipidemia, unspecified Qualifiers: Hyperlipidemia type: mixed hyperlipidemia Qualified Code(s): E78.2 - Mixed hyperlipidemia Plan: Most recent lipid panel showing elevated total cholesterol and LDL. He is room willing to restart low-dose statin therapy. Goal LDL is to be below 130. Orders: Orders Lipid Panel 6 Months E78.2 - Mixed hyperlipidemia Comprehensive [place]. Panel Fast 6 Months E78.2 - Mixed hyperlipidemia Hemoglobin A1c 6 Months M54.5 - Low back pain Complete Blood Count no Diff 6 Months E78.2 - Mixed hyperlipidemia Prostate Specific Antigen Scr 6 Months M54.5 - Low back pain, Z12.5 - Encounter for screening for malignant neoplasm of prostate Referrals Physiatry Referral R29.898 - Other symptoms and signs involving the musculoskeletal system Medications: New atorvastatin 10 mg PO DAILY 90 tabs 1RF 90 days E78.2 - Mixed hyperlipidemia Refilled tadalafil 20 mg PO DAILY PRN 10 tabs 0RF sexual activity 10 days N52.9 - Male erectile dysfunction, unspecified gabapentin 600 mg PO TID 90 tabs 6RF 30 days G62.9 - Polyneuropathy, unspecified Quality Reporting (2019) Depression/Bipolar (159/160/161/177) PHQ-9: Total score: 0 Coding Level of Care Code Medicare First (G0438) Est Pt Level 3 (72492) Diagnoses Medicare annual wellness visit, initial Z00.00 Weakness of both lower extremities R29.898 Laterality: bilateral Primary osteoarthritis of right knee M17.11 Osteoarthritis type: primary Mixed hyperlipidemia E78.2 Hyperlipidemia type: mixed hyperlipidemia CPT Codes Advance Care Planning - Time spent: 1-15 minutes, not on file ([id number]) Advance Care Planning Advance Care Planning discussion: Exists, not on file Date of discussion: 09/02/23 Forms completed: MOLST Time spent: 1-15 minutes, not on file
== END 2023-09-02 14:33 | disposition home or self-care (01) ==
PROVIDERS: PCP Physician Assistant; Visit Provider Physician Assistant
DX: Z00.00 Encounter for general adult medical examination without abnormal findings (principal); R29.898 Other symptoms and signs involving the musculoskeletal system; M17.11 Unilateral primary osteoarthritis, right knee; E78.2 Mixed hyperlipidemia
CPT/HCPCS: 1124F; 99213; G0438

== ENCOUNTER 2023-10-21 09:17 | Outpatient (REF) | payer MEDICARE, MEDICAID, SELFPAY ==
--- NOTE | ~2023-10-21 | CT_ITS ---
EXAMINATION: CT ABDOMEN WITHOUT AND WITH CONTRAST CLINICAL INFORMATION: Exophytic enhancing mass lesion in lower pole of left kidney COMPARISON: Ultrasound examination of the kidneys on 07/02/2023, MRI of lumbar spine on 06/16/2023 TECHNIQUE: Contiguous axial thin section helical images of the abdomen were performed before and after the administration of oral contrast and 85 mL of Omnipaque 350 intravenous contrast. The data set was reformatted in the coronal and sagittal planes and reviewed on an independent workstation. This CT examination was performed using dose optimization techniques as appropriate, variously including the following: *Automated exposure control *Adjustment of mA and/or kV according to patient size (this includes techniques or standardized protocols for targeted exams where dose is matched to indication/reason for exam; i.e. extremities or head) *Use of iterative reconstruction technique DLP: 467.0 mGy-cm FINDINGS: LUNG BASES: Bilateral lung bases are clear. LIVER: No focal lesion is seen in the liver. GALLBLADDER AND BILIARY TREE: Gallbladder appears unremarkable without calcified stones. Common bile duct is not dilated. SPLEEN: The spleen is normal in size without focal lesion. PANCREAS: The pancreas appears unremarkable. ADRENAL GLANDS: Adrenal glands are normal in size without focal lesion bilaterally. KIDNEYS: Precontrast images show no calcified renal stones. Post contrast nephrographic phase images show normal uniform bilateral nephrograms. Definite kidney shows asymmetric prominent lobulation, without discrete focal lesion with abnormal attenuation or enhancement. BOWELS: There is no abnormal dilatation of large and small bowel loops. RETROPERITONEUM: No abnormally enlarged retroperitoneal lymph nodes, mass or hematoma could be seen. BLOOD VESSELS: Abdominal aorta is normal in size and smoothly patent. ABDOMINAL WALL: Small umbilical hernia containing mesenteric fat is seen. PERITONEUM: There was no ascites. There were no abdominal peritoneal inflammatory changes seen. No free peritoneal air was seen. No abnormally enlarged mesenteric lymph nodes are found. BONES: No fracture or dislocation. No focal bone lesion diagnostic of metastatic disease could be seen in the lumbar region. CT/CT abdomen wo/w IV con IMPRESSION: 1. Asymmetric marked lobulation of left renal cortex is seen. No discrete focal mass lesion could be identified. The hypoechoic region reported on ultrasound examination does not correspond to lower pole left kidney lesion reported on MRI of lumbar spine. Follow-up ultrasound examination of the kidneys in 6 months is recommended to follow-up the hypoechoic area not visualized on MRI or CT scan. 2. No evidence of renal stones, solid mass lesions or ureteric obstruction. 3. No abdominal mass lesion or lymphadenopathy is found. 4. Small umbilical hernia containing mesenteric fat is present. Fleischner guidelines were followed.
[2023-10-21] MEDS: iohexoL 350 MG/ML 100 ML INFUS..BTL IV (10:02)
[2023-10-25 07:16] LABS: Creatinine POC 0.8 mg/dL (0.5-1.4); GFR POC > 60
== END 2023-10-21 09:18 | disposition home or self-care (01) ==
LOC: HO.CT 09:17
PROVIDERS: PCP Physician Assistant; Visit Provider Urology
DX: N28.89 Other specified disorders of kidney and ureter (principal)
CPT/HCPCS: 74170; 82565; Q9967

== ENCOUNTER 2023-11-04 09:00 | Outpatient (AMB) | payer MEDICARE, MEDICAID, SELFPAY ==
--- NOTE | 2023-11-04 09:03 | A.OFFVIS_ITS ---
Intake Intake Visit Reasons: 6w/CT Intake Note: Patient presents today for a follow-up on Disorder of Kidney & Ureter/CT SCAN RESULTS: Meds- Tadalafil & Vitamin B6 Allergies to Antibiotic- No Known Allergies Blood Thinner- None Delphi Programmer Required: No Accompanied by: Self / Same As Patient Allergies No Known Allergies [No Known Allergies*] Allergy (Verified 11/04/23 09:06) HPI HPI Comments History of Present Illness Details 11/04/23--Agusto is a 68 y/o who is her e for follow-up, he he had a renal ultrasound 07/02/2023 which noted a 2 cm left renal hypoechoic mass. He is here in follow-up post CT scan. I have reviewed CT imaging results, no discrete focal mass lesion identified. Discussed---Cialis 5 mg, viagra [address] with and without IV contrast 10/21/23--Asymmetric marked lobulation of left renal cortex is seen. No discrete focal mass lesion could be identified. The hypoechoic region reported on ultrasound examination does not correspond to lower pole left kidney lesion reported on MRI of lumbar spine. Follow-up ultrasound examination of the kidneys in 6 months is recommended to follow-up the hypoechoic area not visualized on MRI or CT scan. No evidence of renal stones, solid mass lesions or ureteric obstruction. Review of chart: 09/02/23- Agusto is a 68 y/o who is he re for evaluation for renal mass. The patient denies urinary symptoms, denies gross hematuria. I have reviewed chart, imaging - 07/02/23--Renal US: 2.0 cm left renal lateral midpole hypoechoic, suspicious mass. Plan: CT - abdomen- renal mass protocol 11/04/2023--renal ultrasound in 6 months [facility] Medical History Colon cancer screening Mass of skin of left thumb Hyperlipidemia Anxiety Low back pain Surgical History History of back surgery Family History Father No problems noted. Mother No problems noted. 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 Cognitive needs: Yes Hearing needs: No Vision needs: Yes Review of Systems Const All systems reviewed & are unremarkable except as noted in HPI and below Reports no additional complaints Eyes Reports no additional complaints ENT Reports no additional complaints Card Reports no additional complaints Resp Reports no additional complaints GI Reports no additional complaints Reports as per HPI Musc Reports no additional complaints Skin/Breast Reports system reviewed and no additional complaints, except as documented Neuro Reports no additional complaints Psych Reports no additional complaints Endo Reports no additional complaints Nathan/Lymph Reports no additional complaints Aller/Immun Reports no additional complaints Results AMB Urinalysis, Automated UA Leukoctes 0 Kev/uL Last Edit by NORRIS Salas on 11/04/23 09:17 UA Nitrite Negative Last Edit by NORRIS Salas on 11/04/23 09:17 UA Urobilinogen 0.2 mg/dL Last Edit by NORRIS Salas on 11/04/23 09:1 7 UA Protein 15 mg/dL Last Edit by NORRIS Salas on 11/04/23 09:17 UA pH 6.0 Last Edit by NORRIS Salas on 11/04/23 09:17 UA Blood 0 Santos/uL Last Edit by NORRIS Salas on 11/04/23 09:17 UA Specific Bristol 1.030 Last Edit by NORRIS Salas on 11/04/23 09: 17 UA Ketone Negative Last Edit by NORRIS Salas on 11/04/23 09:17 UA Bilirubin 0 mg/dL Last Edit by NORRIS Salas on 11/04/23 09:17 UA Glucose 0 mg/dL Last Edit by NORRIS Salas on 11/04/23 09:17 Results Reviewed Results Reviewed: Laboratory Last Values Urine pH (Auto) 6.0 11/04/23 09:15 Specific [place] (Auto) 1.030 11/04/23 09:15 Urine Protein (Auto) 15 mg/dL 11/04/23 09:15 Glucose (UA)(Auto) 0 mg/dL 11/04/23 09:15 Urine Ketones (Auto) Negative 11/04/23 09:15 Urine Blood (Auto) 0 Santos/uL 11/04/23 09:15 Urine Nitrite (Auto) Negative 11/04/23 09:15 Urine Bilirubin (Auto) 0 mg/dL 11/04/23 09:15 Urine Urobilinogen (Auto) 0.2 mg/dL 11/04/23 09:15 Leukocyte Esterase (Auto) 0 Kev/uL 11/04/23 09:15 Date of Service: 10/21/23 EXAMINATION: CT ABDOMEN WITHOUT AND WITH CONTRAST CLINICAL INFORMATION: Exophytic enhancing mass lesion in lower pole of left kidney COMPARISON: Ultrasound examination of the kidneys on 07/02/2023, MRI of lumbar spine on 06/16/2023 TECHNIQUE: Contiguous axial thin section helical images of the abdomen were performed before and after the administration of oral contrast and 85 mL of Omnipaque 350 intravenous contrast. The data set was reformatted in the coronal and sagittal planes and reviewed on an independent workstation. This CT examination was performed using dose optimization techniques as appropriate, variously including the following: *Automated exposure control *Adjustment of mA and/or kV according to patient size (this includes techniques or standardized protocols for targeted exams where dose is matched to indication/reason for exam; i.e. extremities or head) *Use of iterative reconstruction technique DLP: 467.0 mGy-cm FINDINGS: LUNG BASES: Bilateral lung bases are clear. LIVER: No focal lesion is seen in the liver. GALLBLADDER AND BILIARY TREE: Gallbladder appears unremarkable without calcified stones. Common bile duct is not dilated. SPLEEN: The spleen is normal in size without focal lesion. PANCREAS: The pancreas appears unremarkable. ADRENAL GLANDS: Adrenal glands are normal in size without focal lesion bilaterally. KIDNEYS: Precontrast images show no calcified renal stones. Post contrast nephrographic phase images show normal uniform bilateral nephrograms. Definite kidney shows asymmetric prominent lobulation, without discrete focal lesion with abnormal attenuation or enhancement. BOWELS: There is no abnormal dilatation of large and small bowel loops. RETROPERITONEUM: No abnormally enlarged retroperitoneal lymph nodes, mass or hematoma could be seen. BLOOD VESSELS: Abdominal aorta is normal in size and smoothly patent. ABDOMINAL WALL: Small umbilical hernia containing mesenteric fat is seen. PERITONEUM: There was no ascites. There were no abdominal peritoneal inflammatory changes seen. No free peritoneal air was seen. No abnormally enlarged mesenteric lymph nodes are found. BONES: No fracture or dislocation. No focal bone lesion diagnostic of metastatic disease could be seen in the lumbar region. IMPRESSION: 1. Asymmetric marked lobulation of left renal cortex is seen. No discrete focal mass lesion could be identified. The hypoechoic region reported on ultrasound examination does not correspond to lower pole left kidney lesion reported on MRI of lumbar spine. Follow-up ultrasound examination of the kidneys in 6 months is recommended to follow-up the hypoechoic area not visualized on MRI or CT scan. 2. No evidence of renal stones, solid mass lesions or ureteric obstruction. 3. No abdominal mass lesion or lymphadenopathy is found. 4. Small umbilical hernia containing mesenteric fat is present. Assessment & Plan Assessment & Plan (1) Renal cyst: Code(s): N28.1 - Cyst of kidney, acquired Plan Renal ultrasound in 6 months Orders: Orders AMB Urinalysis Automated 11/04/23 Z13.9 - Encounter for screening, unspecified US renal BI 6 Months N28.1 - Cyst of kidney, acquired Patient Instructions: The patient had an opportunity to ask questions regarding treatment plan. All questions were answered. Imaging, Laboratory studies and physical exam results were discussed and reviewed in detail. No major barriers to understanding were identified. The patient expressed understanding and agreement with the above treatment plan. The patient is aware they should contact our office by phone for worsening of their current condition or the appearance of new symptoms. Compliance is encouraged with any medications and followup testing that is ordered. It is a privilege to be allowed the opportunity to participate in the urologic care of your patient. If you have any questions or concerns regarding treatment for the above conditions please do not hesitate to contact me. The office telephone contact is [phone]. This note is constructed in part using voice recognition software. While every effort has been made to ensure accuracy senior pricing analyst errors may have been included. Yours sincerely, Norris Shrestha MD Coding Level of Care Code Est Pt Level 3 (33953) Diagnoses Renal cyst N28.1
== END 2023-11-04 09:56 | disposition home or self-care (01) ==
LOC: HO.HUSH 09:00
PROVIDERS: PCP Physician Assistant; Visit Provider Urology
DX: N28.1 Cyst of kidney, acquired (principal)
CPT/HCPCS: 99213

== ENCOUNTER → 2023-11-04 09:00 | Outpatient (BNVA) | payer MEDICARE, MEDICAID, SELFPAY | PROVIDERS: PCP Physician Assistant; Visit Provider Urology | DX: N28.1 Cyst of kidney, acquired (principal) | CPT/HCPCS: 81003; 99212 ==

== ENCOUNTER 2023-12-23 11:20 | Outpatient (AMB) | payer MEDICARE, MEDICAID, SELFPAY ==
[2023-12-23 11:39] VITALS: BP 130/74; PULSE 86; TEMP 36.5; O2SAT 96; BMI 29.3
--- NOTE | 2023-12-23 11:39 | AM.OFFWIN_ITS ---
Intake Vital Signs 12/23/23 11:39 Height 5 ft 5 in Weight 176 lb BMI 29.3 BP 130/74 Blood Pressure Location Lt brachial Position Sitting Pulse 86 Pulse Source Pulse Oximeter Temp 97.7 F Temp Source Temporal Artery Scan Pulse Oximetry (%) 96 Oxygen Delivery Method Room Air Intake Visit Reasons: EP lft rib pain (lobby) Intake Note: pt is here today for lft rib pain started 4 days ago Patient Tobacco Use Status: Never used Tobacco Allergies No Known Allergies [No Known Allergies*] Allergy (Verified 12/23/23 11:44) Do you need a note to return to daycare/school/sports/work: No HPI HPI Comments History of Present Illness Details 68 y/o female patient who presents to [facility] in clinic with c/o left sided lower back pain x 4 days. Prior back surgery 4 years ago. Denies bowel or bladder symptoms. Denies numbness or tingling. Pt had left over Tramadol at home - took them with no relief. [facility] Medical History Colon cancer screening Mass of skin of left thumb Hyperlipidemia Anxiety Low back pain Surgical History History of back surgery Family History Father No problems noted. Mother No problems noted. 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 Cognitive needs: Yes Hearing needs: No Vision needs: Yes Review of Systems Const All systems reviewed & are unremarkable except as noted in HPI and below Physical Exam Vital Signs: Last Vital Signs Temp 97.7 F 12/23/23 11:39 Pulse 86 12/23/23 11:39 BP 130/74 12/23/23 11:39 Pulse Ox 96 12/23/23 11:39 Oxygen Delivery Method Room Air 12/23/23 11:39 BMI result Body Mass Index 29.3 Const General: comfortable and no acute distress Orientation/consciousness: patient oriented x3 General: Yes no CVA tenderness Back/Spine/Pelvis Back: no CVA tenderness, No mass, No erythema, No ecchymosis and back tenderness Thoracic/Lumbar Spine: Thoracic/lumbar spine scar(s) (Midline well healed scar), thoraco-lumbar ROM normal and lumbar spinal tenderness at L5 Neuro General: patient oriented x3, gait normal and moves all extremities Psych Speech and movement: Normal speech and movement present Assessment & Plan Assessment & Plan (1) Low back pain: Code(s): M54.5 - Low back pain Qualifiers: Chronicity: chronic Back pain laterality: left Sciatica presence: without sciatica Qualified Code(s): M54.50 - Low back pain, unspecified; G89.29 - Other chronic pain Plan: - Take medicine as directed - If Pain worse to go to ED Medications: New cyclobenzaprine 10 mg PO BEDTIME 20 tabs 0RF G89.29 - Other chronic pain, M54.50 - Low back pain, unspecified acetaminophen 1,000 mg (2 x 500 mg) PO Q6H PRN 30 caps 0RF pain (scale score 7- 10) G89.29 - Other chronic pain, M54.50 - Low back pain, unspecified Discontinued tramadol Discontinued Reason: Patient Completed Course 50 mg PO BID 7 days PRN 14 tabs 0RF pain M54.5 - Low back pain Coding Level of Care Code Est Pt Level 3 (85246) Diagnoses Chronic left-sided low back pain without sciatica M54.50; G89.29 Chronicity: chronic Back pain laterality: left Sciatica presence: without sciatica Time Spent (min) 15
== END 2023-12-23 13:08 | disposition home or self-care (01) ==
PROVIDERS: PCP Physician Assistant; Visit Provider Nurse Practitioner Family
DX: M54.50 Low back pain, unspecified (principal); G89.29 Other chronic pain
CPT/HCPCS: 99213

== ENCOUNTER 2024-01-13 13:04 | Outpatient (AMB) | payer MEDICARE, MEDICAID, SELFPAY ==
[2024-01-13 13:10] VITALS: BP 122/82; PULSE 77; O2SAT 96; BMI 29.9
--- NOTE | 2024-01-13 13:10 | A.OFFPC_ITS ---
Vital Signs 01/13/24 13:10 Height 5 ft 4 in Weight 174 lb 2 oz BMI 29.9 BP 122/82 Blood Pressure Location Lt brachial Position Sitting Pulse 77 Pulse Source Pulse Oximeter Pulse Oximetry (%) 96 Oxygen Delivery Method Room Air Intake Visit Reasons: Back pain Intake Note: The patient is presenting with aggravated back back pain and possible tendon pain in the right hand when flexing it. Financial Coordinator Required: No Accompanied by: Self / Same As Patient Allergies No Known Allergies [No Known Allergies*] Allergy (Verified 01/13/24 13:24) Medication List - Last Reconciled 01/13/24 by Jossue Pickett PA-C acetaminophen 1,000 mg (2 x 500 mg) PO Q6H PRN alpha lipoic acid 600 mg PO BID 30 days cyclobenzaprine 10 mg PO BEDTIME gabapentin 600 mg PO TID 30 days ketoconazole 2% 1 appl topical 3XW 4 weeks latanoprost 0.005% 1 drp ophthalmic (eye) BEDTIME magnesium oxide 500 mg PO BEDTIME 30 days akxvpbep-ygu-zoeao-vit K-lycop 400-20-370 mcg (One-A-Day Men's 50 Plus (with vitamin K)) 1 tab PO DAILY pyridoxine (vitamin B6) 100 mg PO DAILY Tobacco use date assessed: 12/24/22 Dental Screening Dental Screen Date: 04/28/23 HPI Back pain HPI Details Patient is a 68-year-old male here today for a problem visit .? Patient has a past medical history significant for hyperlipidemia, chronic lower extremity weakness and lumbar spine pain. Concern--> reports he had acute lower back pain that radiating down his right thigh. He did see urgent Care was prescribed cyclobenzaprine. He reports over the last few days is back pain has been much better. He does intermittently get right lower extremity pain and muscular spasms. We did discuss this may be related to his disc issue in his lumbar spine. CHRONIC MEDICAL CONDITIONS--> Hyperlipidemia:? Patient was able to improve his total cholesterol and LDL with lifestyle only.? Cholesterol still borderline high. Again advised to again start statin therapy though he declines my offers and would like to continue working on lifestyle. Anxiety:? His stress and anxiety have been a lot better lately, has not had to use any lorazepam or anxiety medication. 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 .. Lumbar disc disease, lower extremity weakness:? Patient is followed by neurologist in [place].? 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 He uses Advil most of the time for his pain.? Does use tramadol on a limited p.r.n. basis when pain skills are 7 in 10. He continues to have weakness in his lower extremities though he reports he is able to manage. --> Underwent EMG of his lower extremiti es in the findings were consistent with a predominantly L5-S1 bilateral chronic radiculopathy. The chronicity is supported by the presence of a complex repetitive discharges in the left gastrocnemius He reports he has noted worsening balance as he a often feels that he is going to fall forward.? He is willing now to do some more physical therapy to increase his lower extremity strength and work on his balance. Of note--> Did have an MRI of his lumbar spine in May 2023 which did show status post laminectomy at L3-L4. Also did show concentric disc bulging at this level moderate to severe bilateral neural foraminal stenosis progress from previous imaging. [facility] Medical History Colon cancer screening Mass of skin of left thumb Hyperlipidemia Anxiety Low back pain Surgical History History of back surgery Family History Father No problems noted. Mother No problems noted. 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 1. Little interest or pleasure in doing things: not at all 2. Feeling down, depressed, or hopeless: not at all 3. Trouble falling or staying asleep, or sleeping too much: not at all 4. Feeling tired or having little energy: not at all 5. Poor appetite or overeating: not at all 6. Feeling bad about yourself - or that you are a failure or have let yourself or your family down: not at all 7. Trouble concentrating on things, such as reading the newspaper or watching television: not at all 8. Moving or speaking so slowly that other people could have noticed. Or the opposite - being so fidgety or restless that you have been moving around a lot more than usual: not at all 9. Thoughts that you would be better off or of hurting yourself in some way: not at all Total score: 0 Depression Screening Interpretation: Negative Depression Screening Done: Yes 18712 - PHQ-9 Billing: Yes Source: Developed by Drs. Julián Rodas, Candis Jonas, Ricci Ivan and colleagues, with an educational steve from [employer]. Thrive Questionnaire Date Thrive assessed: 01/13/24 I am a: Patient What is your living situation today?: I have a steady place to live Within the past 12 months, did the food you bought not last and you didn't have the money to get more?: Never true Within the past 12 months, did you worry whether your food would run out before you got money to buy more?: Never true Do you have trouble paying for medicines?: No Do you have trouble getting transportation to medical appointments?: No Do you have trouble paying your heating and electricity bill?: No Do you have trouble taking care of your child, family member or friend?: No Do you have trouble with day-to-day activities such as bathing, preparing meals, shopping, managing finances, etc.?: No Are you currently unemployed and looking for a job?: No Are you interested in more education?: No Please select the resources that you would like help with: None Currently or been in a relationship where the following occur: no concerns reported THRIVE Score: 0 AUDIT C Alcohol Use Questionnaire (AUDIT-C) 1. How often do you have a drink containing alcohol?: Never 3. How often do you have six or more drinks on one occasion?: Never Total Score: 0 VINNIE-7 AMB Questionnaire VINNIE-7 Date VINNIE - 7 assessed: 01/13/24 Feeling nervous, anxious, or on edge: 0 = Not at all Not being able to stop or control worryin = Not at all Worrying too much about different things: 0 = Not at all Trouble relaxin = Not at all Being so restless that it is hard to sit still: 0 = Not at all Becoming easily annoyed or irritable: 0 = Not at all Feeling afraid as if something awful might happen: 0 = Not at all Total VINNIE-7 score (0-4 normal; 5-9 mild; 10-14 moderate; 15-21 severe): 0 Source: Developed by Drs. Julián Rodas, Candis Jonas, Ricci Ivan and colleagues, with an educational steve from [employer]. VINNIE-7 Assessment Billing VINNIE-7 Assessment Tool: VINNIE-7 Assessment 03311 Review of Systems Const Denies headache(s) Eyes Denies loss of vision ENT Denies vertigo, Denies dizziness, Denies headache(s) and Denies sore throat Card Denies chest pain, Denies leg edema and Denies lightheadedness Resp Denies cough, Denies hemoptysis and Denies wheezing GI Denies abdominal pain, Denies melena, Denies constipation, Denies diarrhea and Denies vomiting Denies dysuria, Denies urinary frequency and Denies urinary urgency Musc Denies arthralgias, Denies joint swelling, Denies numbness and Denies tingling Neuro Denies Abnormal speech present, Denies behavioral changes, Denies vertigo, Denies dizziness, Denies headache(s), Denies loss of vision, Denies memory loss, Denies numbness and Denies tingling Psych Denies anxiety, Denies behavioral changes, Denies depression, Denies memory loss and Denies panic attacks Nathan/Lymph Denies easy bleeding and Denies easy bruising Aller/Immun Denies wheezing Physical exam (Primary Care) Vital Signs: Oxygen Delivery Method Room Air 01/13/24 13:10 BMI result Body Mass Index 29.9 Tobacco/Smoking Status: Tobacco use Status Tobacco use date assessed 12/24/22 01/13/24 13:11 Patient Tobacco Use Status Never used Tobacco 01/13/24 13:11 e-Cigarette/Vaping Use Never Used 01/13/24 13:11 Depression Screening Interpretation: Negative Thrive Assessment: Date of Thrive Assessment Date Thrive assessed 12/24/22 01/13/24 13:11 Currently or been in a relationship where the following occur: no concerns reported Const General: healthy appearing, no acute distress, alert and awake Nutritional Appearance: well nourished Orientation/consciousness: oriented to person, oriented to place and oriented to time HENMT Ears: TM's normal bilaterally General nose exam: Normal nasal mucous membranes and turbinates present Eyes Conjunctivae: conjunctivae normal Sclerae: sclerae normal Pupils: Equal, round and reactive pupils present Neck Neck: Yes no lymphadenopathy and Yes no JVD Thyroid: Thyroid normal Carotids: no bruits Resp Effort & Inspection: normal respiratory effort and not tachypneic Auscultation: no crackles, no rales, no rhonchi and no wheezes Cardio Rate: regular rate Rhythm: regular rhythm Heart sounds: no murmurs and normal S1 and S2 GI Palpation (GI): Soft to palpation, nontender, no hepatomegaly and no splenomegaly Auscultation: normal bowel sounds Back/Spine/Pelvis Other: LIMITED RANGE OF MOTION OF LUMBAR SPINE Skin General skin exam: no rashes or lesions noted and dry skin Neuro Other: LOWER EXTREMITIES 3/5 STRENGTH BILATERALLY . General: oriented to person, oriented to place and oriented to time Cranial nerves: Yes Equal, round and reactive pupils present Speech: No Abnormal speech present Gait exam (Neuro): Normal gait present Motor exam (neuro): no tremor noted Extrem Right upper extremity: full ROM Left upper extremity: full ROM Right lower extremity: full ROM; no edema Left lower extremity: full ROM; no edema Psych Mental Status: mental status grossly normal Speech and movement: Normal speech and movement present Affect: normal affect Attitude: cooperative Thought process: Normal thought process present Assessment and Plan Assessment & Plan (1) Lumbar disc disease with radiculopathy: Code(s): M51.16 - Intervertebral disc disorders with radiculopathy, lumbar region Plan: As per HPI Medications: Changed From cyclobenzaprine 10 mg PO BEDTIME 20 tabs 0RF G89.29 - Other chronic pain, M54.50 - Low back pain, unspecified To cyclobenzaprine 10 mg PO BEDTIME 30 days PRN 30 tabs 0RF muscle spasm G89.29 - Other chronic pain, M54.50 - Low back pain, unspecified Coding Level of Care Code Est Pt Level 3 (95393) Diagnoses Lumbar disc disease with radiculopathy M51.16 Additional Codes VINNIE-7 Assessment Billing - VINNIE-7 Assessment Tool: VINNIE-7 Assessment 15556 ([id number])
== END 2024-01-13 13:38 | disposition home or self-care (01) ==
PROVIDERS: PCP Physician Assistant; Visit Provider Physician Assistant
DX: M51.16 Intervertebral disc disorders with radiculopathy, lumbar region (principal)
CPT/HCPCS: 99213

== ENCOUNTER 2024-03-07 12:00 | Outpatient (REF) | payer MEDICARE, SELFPAY ==
[2024-03-07 12:22] LABS: Hematocrit 46.5 % (42.0-52.0); Hemoglobin 15.5 g/dl (14.0-18.0); Mean Corpuscular HGB Conc 33.3 g/dl (31.0-36.0); Mean Corpuscular Volume 83.9 fL (80.0-98.0); Platelet Count 259 X10*3/uL (160-400); Red Blood Count 5.54 X10*6/uL (4.60-5.80); Red Cell Distribution Width 13.9 % (11.0-16.0); White Blood Count 5.2 X10*3/uL (4.8-10.8)
[2024-03-07 12:31] LABS: Estimated Average Glucose 117 mg/dL; Hemoglobin A1c % 5.7 % (<6.0)
[2024-03-07 12:51] LABS: Alanine Aminotransferase 16 U/L (0-40); Albumin Level 4.2 g/dL (3.5-5.0); Alkaline Phosphatase 87 U/L (39-117); Anion Gap 11 (12-20); Aspartate Amino Transferase 14 U/L (5-37); Bilirubin Total 0.5 mg/dL (0.0-1.0); Blood Urea Nitrogen 19 mg/dL (9-16); Calcium 9.6 mg/dL (8.4-10.2); Carbon Dioxide 29 mmol/L (22-29); Chloride 107 mmol/L (96-108); Cholesterol 247 mg/dL (<200); Estimated Glomerular Filt Rate 58; Glucose Fasting 110 mg/dL (60-99); HDL Cholesterol 45 mg/dL (>40); LDL Cholesterol Calculated 174 mg/dL (<100); Potassium 4.6 mmol/L (3.3-5.1); Sodium 142 mmol/L (135-145); Total Protein 7.2 g/dL (6.5-8.0); Triglycerides 144 mg/dL (<150)
[2024-03-07 13:13] LABS: Prostate Specific Antigen Scr 2.87 ng/mL (<0.05-4.0)
== END 2024-03-07 12:01 | disposition home or self-care (01) ==
LOC: HO.LAB 12:00
PROVIDERS: PCP Physician Assistant; Visit Provider Physician Assistant
DX: E78.2 Mixed hyperlipidemia (principal); Z12.5 Encounter for screening for malignant neoplasm of prostate; M54.50 Low back pain, unspecified; Z13.1 Encounter for screening for diabetes mellitus
CPT/HCPCS: 36415; 80053; 80061; 83036; 84153; 85027

== ENCOUNTER 2024-03-08 09:00 | Outpatient (AMB) | payer MEDICARE, SELFPAY ==
[2024-03-08 09:13] VITALS: BP 138/66; PULSE 80; O2SAT 96; BMI 30.9
--- NOTE | 2024-03-08 09:13 | MHC.PC.OV ---
Vital Signs 03/08/24 09:13 Height 5 ft 4 in Weight 180 lb 4 oz BMI 30.9 BP 138/66 Blood Pressure Location Lt brachial Position Sitting Pulse 80 Pulse Source Pulse Oximeter Pulse Oximetry (%) 96 Oxygen Delivery Method Room Air Intake Visit Reasons: PE Intake Note: Patient is here today for a physical. Sports Medicine [place] Required: No Accompanied by: Self / Same As Patient Allergies No Known Allergies [No Known Allergies*] Allergy (Verified 03/08/24 09:17) Medication List - Last Reconciled 03/08/24 by Jossue Pickett PA-C acetaminophen 1,000 mg (2 x 500 mg) PO Q6H PRN alpha lipoic acid 600 mg PO BID 30 days cyclobenzaprine 10 mg PO BEDTIME PRN 30 days gabapentin 600 mg PO TID 30 days ketoconazole 2% 1 appl topical 3XW 4 weeks latanoprost 0.005% 1 drp ophthalmic (eye) BEDTIME magnesium oxide 500 mg PO BEDTIME 30 days onljpxxs-zpu-inrii-vit K-lycop 400-20-370 mcg (One-A-Day Men's 50 Plus (with vitamin K)) 1 tab PO DAILY pyridoxine (vitamin B6) 100 mg PO DAILY 30 days Tobacco use date assessed: 03/08/24 Fall risk assessment: No Falls in past year Last assessed Fall Risk: 03/08/24 Dental Screening Dental Screen Date: 03/08/24 Did you have a dental visit in the last 12 months?: Yes Did you have a dental problem in the last 6 months where you did not have access to dental care?: No Was dental information given to patient?: Patient has dentist HPI PE HPI Details Patient is a 68-year-old male here today for a annual physical. .? Patient has a past medical history significant for hyperlipidemia, chronic lower extremity weakness and lumbar spine pain. Concern-->. Continues to have lower extremity weakness/pain and balance issues particularly when standing or walking for long periods of time. CHRONIC MEDICAL CONDITIONS--> Hyperlipidemia:? Most recent lipid panel continues to show high cholesterol and LDL. Has not been consistently taking his cholesterol medication and promises to start doing so. Again advised to again start statin therapy though he declines my offers and would like to continue working on lifestyle. .. Lumbar disc disease, lower extremity weakness:? Patient is followed by neurologist in [place].? 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 He uses Advil most of the time for his pain.? Does use tramadol on a limited p.r.n. basis when pain skills are 7 in 10. He continues to have weakness in his lower extremities though he reports he is able to manage. --> Underwent EMG of his lower extremities in the findings were consistent with a predominantly L5-S1 bilateral chronic radiculopathy. The chronicity is supported by the presence of a complex repetitive discharges in the left gastrocnemius He reports he has noted worsening balance as he a often feels that he is going to fall forward.? He is willing now to do some more physical therapy to increase his lower extremity strength and work on his balance. Of note--> Did have an MRI of his lumbar spine in May 2023 which did show status post laminectomy at L3-L4. Also did show concentric disc bulging at this level moderate to severe bilateral neural foraminal stenosis progress from previous imaging. Vaccines: Up-to-date COVID vaccine, up-to-date pneumonia vaccine, up-to-date tetanus vaccine, needs shingles Colorectal cancer screening: Cologuard negative in 2019-needs repeat Laboratory Tests 05/14/20 02/25/21 08/21/22 11:23 10:05 10:23 RBC Hgb Creatinine Fasting Glucose Hemoglobin A1c % LDL Cholesterol, C alc 184 158 Cholesterol 246 PSA Screen 09/02/23 03/07/24 10:36 12:12 RBC 5.54 Hgb 15.5 Creatinine 1.24 Fasting Glucose 110 H Hemoglobin A1c % 5.7 5.7 LDL Cholesterol, C alc 150 H 174 H Cholesterol 225 H 247 H PSA Screen 2.87 [facility] Medical History Colon cancer screening Mass of skin of left thumb Hyperlipidemia Anxiety Low back pain Surgical History History of back surgery Family History Father No problems noted. Mother No problems noted. 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 Julián Rodas, Candis Jonas, Ricci Ivan and colleagues, with an educational steve from [employer]. Review of Systems Const Denies body aches, Denies chills, Denies excessive sweating, Denies fatigue, Denies fever(s) and Denies headache(s) Eyes Denies blurry vision ENT Denies dysphagia, Denies vertigo, Denies dizziness, Denies headache(s), Denies hearing loss and Denies tinnitus Card Denies chest pain, Denies chest pain with activity, Denies syncope, Denies irregular heart rhythm and Denies dyspnea Resp Denies chest congestion, Denies cough, Denies hemoptysis, Denies dyspnea and Denies wheezing GI Denies abdominal pain, Denies melena, Denies hematochezia, Denies coffee ground emesis, Denies dysphagia, Denies diarrhea, Denies nausea and Denies vomiting Denies difficulty urinating, Denies dysuria, Denies urinary frequency, Denies urinary hesitancy and Denies urinary urgency Musc Denies arthralgias, Denies limited range of motion, Denies muscle cramps and Denies muscle weakness Skin/Breast Denies rash and Denies skin ulcer Neuro Denies Abnormal speech present, Denies confusion, Denies vertigo, Denies dizziness, Denies syncope, Denies headache(s), Denies memory loss and Denies seizure-like activity Psych Denies anxiety, Denies confusion, Denies depression, Denies memory loss, Denies panic attacks and Denies paranoia Endo Denies excessive sweating, Denies fatigue, Denies flushing, Denies polydipsia and Denies polyuria Aller/Immun Denies wheezing Physical exam (Primary Care) Vital Signs: Last Vital Signs Pulse 80 03/08/24 09:13 BP 138/66 03/08/24 09:13 Pulse Ox 96 03/08/24 09:13 Oxygen Delivery Method Room Air 03/08/24 09:13 BMI result Body Mass Index 30.9 Tobacco/Smoking Status: Tobacco use Status Tobacco use date assessed 03/08/24 03/08/24 09:17 Patient Tobacco Use Status Never used Tobacco 03/08/24 09:17 e-Cigarette/Vaping Use Never Used 03/08/24 09:17 Thrive Assessment: Date of Thrive Assessment Date Thrive assessed 01/13/24 03/08/24 09:17 Const General: cooperative, comfortable, no acute distress, alert and awake; No confusion Orientation/consciousness: oriented to person, oriented to place, patient oriented x3 and No confusion HENMT Head: Yes normocephalic Ears: external ears normal and TM's normal bilaterally Face and sinus: No sinus tenderness Mouth: Normal oral and palatal mucosa present and tongue normal Teeth and gingiva: dentition normal and gingiva normal Throat: Yes posterior oropharynx normal, Yes tonsils normal and Yes uvula midline Eyes Conjunctivae: conjunctivae normal Sclerae: sclerae normal Pupils: Equal, round and reactive pupils present EOM: EOMs intact bilaterally Direct Ophthalmoscopy: No no photophobia Neck Neck: Yes no lymphadenopathy, No tender and Yes no JVD Thyroid: Thyroid normal Carotids: no bruits Chest Chest palpation & inspection: no tenderness Resp Effort & Inspection: normal respiratory effort, no audible wheezes, not labored and no stridor Auscultation: no crackles, no rales, no rhonchi and no wheezes Cardio Jugular venous distension: no JVD Rate: regular rate, not bradycardic and not tachycardic Rhythm: regular rhythm Bruits: no carotid bruits Peripheral pulses: Peripheral pulses 2+ throughout GI Inspection: Yes normal to inspection, No abdominal wall ecchymosis and No visible herniation Palpation (GI): Soft to palpation, nontender, no guarding, not rigid and No hepatosplenomegaly present Auscultation: normoactive bowel sounds General: Yes no CVA tenderness Back/Spine/Pelvis Back: no CVA tenderness and No back tenderness Cervical Spine: cervical ROM normal Thoracic/Lumbar Spine: thoracic and lumbar spine normal to inspection, straight leg raise negative bilaterally, No thoraco-lumbar ROM limited and No lumbar spinal tenderness Skin Lesions: no lesions Rashes: no rashes Wounds: no wounds Neuro General: oriented to person, oriented to place, patient oriented x3, CN's II-XI intact bilaterally and No confusion Cranial nerves: Yes Equal, round and reactive pupils present and Yes Normal accommodation reflex present Cognition (Neuro): normal cognition Speech: No Abnormal speech present Gait exam (Neuro): Normal gait present Motor exam (neuro): 5/5 motor strength present throughout Extrem Right upper extremity: full ROM; no cyanosis Left upper extremity: full ROM; no cyanosis Right lower extremity: no edema Left lower extremity: no edema Psych Appearance: grossly normal Mental Status: mental status grossly normal Affect: normal affect Attitude: cooperative Thought process: Normal thought process present Assessment and Plan Assessment & Plan (1) Annual physical exam: Code(s): Z00.00 - Encounter for general adult medical examination without abnormal findings (2) HLD (hyperlipidemia): Code(s): E78.5 - Hyperlipidemia, unspecified Qualifiers: Hyperlipidemia type: mixed hyperlipidemia Qualified Code(s): E78.2 - Mixed hyperlipidemia Plan: Patient's total cholesterol and LDL remain elevated. He is not consistent with taking his cholesterol medication. He promises to be more consistent on taking the cholesterol medication. Goal LDL is to be below 160 (3) Lumbar disc disease with radiculopathy: Code(s): M51.16 - Intervertebral disc disorders with radiculopathy, lumbar region Plan: Patient continues to have lower back pain that radiates down both legs at times. He is able to manage his pain with gabapentin and p.r.n. use of Tylenol and cyclobenzaprine. He also does continue to have a balance issue and some weakness in his lower extremities. Will likely benefit from more physical therapy. (4) Balance problem: Code(s): R26.89 - Other abnormalities of gait and mobility Plan: As above Orders: Orders PT Evaluation and Treatment Today M51.9 - Unspecified thoracic, thoracolumbar and lumbosacral intervertebral disc disorder, R26.89 - Other abnormalities of gait and mobility Lipid Panel 6 Months E78.2 - Mixed hyperlipidemia Comprehensive [place]. Panel Fast 6 Months E78.2 - Mixed hyperlipidemia Hemoglobin A1c 6 Months R73.09 - Other abnormal glucose Referrals Cologuard Test E78.2 - Mixed hyperlipidemia, Z12.11 - Encounter for screening for malignant neoplasm of colon Medications: Changed From pyridoxine (vitamin B6) 100 mg PO DAILY 60 tabs 0RF G62.9 - Polyneuropathy, unspecified To pyridoxine (vitamin B6) 100 mg PO DAILY 30 tabs 3RF 30 days G62.9 - Polyneuropathy, unspecified Refilled gabapentin 600 mg PO TID 90 tabs 6RF 30 days G62.9 - Polyneuropathy, unspecified magnesium oxide 500 mg PO BEDTIME 30 caps 3RF 30 days G62.9 - Polyneuropathy, unspecified Patient Instructions: Goal: Goal total cholesterol to be below 230, LDL to be below 160 Barriers: Adherence to medication, physical activity and healthy eating habits. Coding Level of Care Code Est Pt Prev Care >65y(33359) Diagnoses Annual physical exam Z00.00 Mixed hyperlipidemia E78.2 Hyperlipidemia type: mixed hyperlipidemia Lumbar disc disease with radiculopathy M51.16 Balance problem R26.89
== END 2024-03-08 09:48 | disposition home or self-care (01) ==
PROVIDERS: PCP Physician Assistant; Visit Provider Physician Assistant
DX: E78.2 Mixed hyperlipidemia (principal); M51.16 Intervertebral disc disorders with radiculopathy, lumbar region; R26.89 Other abnormalities of gait and mobility
CPT/HCPCS: 99214

== ENCOUNTER 2024-05-04 08:58 | Outpatient (REF) | payer MEDICARE, SELFPAY ==
--- NOTE | ~2024-05-04 | US_ITS ---
EXAMINATION: US RETROPERITONEAL COMPLETE (RENAL) CLINICAL INFORMATION: Acquired cyst of kidney. COMPARISON: MRI lumbar spine dated 06/16/2023; renal ultrasound dated 07/02/2023; CT abdomen and pelvis dated 10/21/2022. TECHNIQUE: Real-time imaging of the kidneys and bladder. FINDINGS: RIGHT KIDNEY: 10.4 x 5.0 x 5.0 cm (SAG x AP x TRV). The kidney is normal in size and echogenicity. There are persistent lobulations. Renal cortical thickness is normal. No calculi or focal parenchymal lesions. No hydronephrosis. LEFT KIDNEY: 1 3 x 4.9 x 4.1 cm (SAG x AP x TRV). The kidney is normal in size and echogenicity. There are persistent lobulations. Renal cortical thickness is normal. No calculi or hydronephrosis. At the interpolar aspect to lower pole, a 1.8 x 1.8 x 1.7 cm hypoechoic, circumscribed density is redemonstrated. This shows no significant associated color Doppler flow. On the renal ultrasound dated 07/06/2023, this measured 2.0 x 1.9 x 2.0 cm. US/US renal BI IMPRESSION: There is a continued stable ultrasound appearance of a 1.8 x 1.8 x 1.7 cm hypoechoic, circumscribed density within the mid to lower pole of the left kidney. This is similar in echotexture relative to the remaining renal cortex, and the possibility is raised that this may represent a pronounced lobulation. This would correlate with the accompanying CT and MRI findings. Continued imaging follow-up may be helpful to ensure continued stability, as clinically warranted. Electronically signed by: Scar Caal MD 05/18/2024 12:44 PM EDT Workstation: -[id number]
== END 2024-05-04 08:59 | disposition home or self-care (01) ==
LOC: HO.US 08:58
PROVIDERS: PCP Physician Assistant; Visit Provider Physician Assistant
DX: N28.1 Cyst of kidney, acquired (principal)
CPT/HCPCS: 76775

== ENCOUNTER 2024-07-14 10:25 | Outpatient (AMB) | payer MEDICARE, SELFPAY ==
--- NOTE | 2024-07-14 10:33 | A.OFFVIS_ITS ---
Intake Visit Reasons: 7m/US Intake Note: Patient is present for 7M/US Urology Medication:VITAMIN B6 Antibiotic Allergy:NONE Blood Thinner:VITAMIN K High Tension Tester Required: No Allergies No Known Allergies [No Known Allergies*] Allergy (Verified 07/14/24 10:42) Medication List - Last Reconciled 07/14/24 by Norris Shrestha MD acetaminophen 1,000 mg (2 x 500 mg) PO Q6H PRN alpha lipoic acid 600 mg PO BID 30 days cyclobenzaprine 10 mg PO BEDTIME PRN 30 days gabapentin 600 mg PO TID 30 days ketoconazole 2% 1 appl topical 3XW 4 weeks latanoprost 0.005% 1 drp ophthalmic (eye) BEDTIME magnesium oxide 500 mg PO BEDTIME 30 days ofecwjax-tyi-disdc-vit K-lycop 400-20-370 mcg (One-A-Day Men's 50 Plus (with vitamin K)) 1 tab PO DAILY pyridoxine (vitamin B6) 100 mg PO DAILY 30 days tadalafil (Cialis) 5 mg PO DAILY HPI Comments Details: 07/14/24--Reviewed renal US 04/2024 Left lower pole lesion stable no doppler flow. c/o;s nocturia 1-2 times. Plan renal US in one year, cialis 5 mg daily for BPH symptoms Review of chart: 11/04/23--Agusto is a 68 y/o who is here for follow-up, he he had a renal ultrasound 07/02/2023 which noted a 2 cm left renal hypoechoic mass. He is here in follow-up post CT scan. I have reviewed CT imaging results, no discrete focal mass lesion identified. CT with and without IV contrast 10/21/23--Asymmetric marked lobulation of left renal cortex is seen. No discrete focal mass lesion could be identified. The hypoechoic region reported on ultrasound examination does not correspond to lower pole left kidney lesion reported on MRI of lumbar spine. Follow-up ultrasound examination of the kidneys in 6 months is recommended to follow-up the hypoechoic area not visualized on MRI or CT scan. No evidence of renal stones, solid mass lesions or ureteric obstruction. 09/02/23- Agusto is a 68 y/o who is here for evaluation for renal mass. The patient denies urinary symptoms, denies gross hematuria. I have reviewed chart, imaging - 07/02/23--Renal US: 2.0 cm left renal lateral midpole hypoechoic, suspicious mass. Plan: CT - abdomen- renal mass protocol [facility] Medical History Colon cancer screening Mass of skin of left thumb Hyperlipidemia Anxiety Low back pain Surgical History History of back surgery Family History Father No problems noted. Mother No problems noted. 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 Cognitive needs: Yes Hearing needs: No Vision needs: Yes Review of Systems Const All systems reviewed & are unremarkable except as noted in HPI and below Reports no additional complaints Eyes Reports no additional complaints ENT Reports no additional complaints Card Reports no additional complaints Resp Reports no additional complaints GI Reports no additional complaints Reports as per HPI Musc Reports no additional complaints Skin/Breast Reports system reviewed and no additional complaints, except as documented Neuro Reports no additional complaints Psych Reports no additional complaints Endo Reports no additional complaints Nathan/Lymph Reports no additional complaints Aller/Immun Reports no additional complaints Results AMB Urinalysis, Automated UA Leukoctes 0 Kev/uL Last Edit by HERRERA Hanson on 07/14/24 10:51 UA Nitrite Negative Last Edit by HERRERA Hanson on 07/14/24 10:51 UA Urobilinogen 0.2 mg/dL Last Edit by HERRERA Hanson on 07/14/24 10:5 1 UA Protein 0 mg/dL Last Edit by HERRERA Hanson on 07/14/24 10:51 UA pH 6.0 Last Edit by HERRERA Hanson on 07/14/24 10:51 UA Blood 0 Santos/uL Last Edit by HERRERA Hanson on 07/14/24 10:51 UA Specific [place] 1.025 Last Edit by HERRERA Hanson on 07/14/24 10: 51 UA Ketone Negative Last Edit by HERRERA Hanson on 07/14/24 10:51 UA Bilirubin 0 mg/dL Last Edit by HERRERA Hanson on 07/14/24 10:51 UA Glucose 0 mg/dL Last Edit by HERRERA Hanson on 07/14/24 10:51 Results Reviewed Results Reviewed: Laboratory Last Values Urine pH (Auto) 6.0 07/14/24 10:50 Specific [place] (Auto) 1.025 07/14/24 10:50 Urine Protein (Auto) 0 mg/dL 07/14/24 10:50 Glucose (UA)(Auto) 0 mg/dL 07/14/24 10:50 Urine Ketones (Auto) Negative 07/14/24 10:50 Urine Blood (Auto) 0 Santos/uL 07/14/24 10:50 Urine Nitrite (Auto) Negative 07/14/24 10:50 Urine Bilirubin (Auto) 0 mg/dL 07/14/24 10:50 Urine Urobilinogen (Auto) 0.2 mg/dL 07/14/24 10:50 Leukocyte Esterase (Auto) 0 Kev/uL 07/14/24 10:50 Date of Service: 05/04/24 US RETROPERITONEAL COMPLETE (RENAL) CLINICAL INFORMATION: Acquired cyst of kidney. COMPARISON: MRI lumbar spine dated 06/16/2023; renal ultrasound dated 07/02/2023; CT abdomen and pelvis dated 10/21/2022. TECHNIQUE: Real-time imaging of the kidneys and bladder. FINDINGS: RIGHT KIDNEY: 10.4 x 5.0 x 5.0 cm (SAG x AP x TRV). The kidney is normal in size and echogenicity. There are persistent lobulations. Renal cortical thickness is normal. No calculi or focal parenchymal lesions. No hydronephrosis. LEFT KIDNEY: 1 3 x 4.9 x 4.1 cm (SAG x AP x TRV). The kidney is normal in size and echogenicity. There are persistent lobulations. Renal cortical thickness is normal. No calculi or hydronephrosis. At the interpolar aspect to lower pole, a 1.8 x 1.8 x 1.7 cm hypoechoic, circumscribed density is redemonstrated. This shows no significant associated color Doppler flow. On the renal ultrasound dated 07/06/2023, this measured 2.0 x 1.9 x 2.0 cm. IMPRESSION: There is a continued stable ultrasound appearance of a 1.8 x 1.8 x 1.7 cm hypoechoic, circumscribed density within the mid to lower pole of the left kidney. This is similar in echotexture relative to the remaining renal cortex, and the possibility is raised that this may represent a pronounced lobulation. This would correlate with the accompanying CT and MRI findings. Continued imaging follow-up may be helpful to ensure continued stability, as clinically warranted. Date of Service: 10/21/23 EXAMINATION: CT ABDOMEN WITHOUT AND WITH CONTRAST CLINICAL INFORMATION: Exophytic enhancing mass lesion in lower pole of left kidney COMPARISON: Ultrasound examination of the kidneys on 07/02/2023, MRI of lumbar spine on 06/16/2023 TECHNIQUE: Contiguous axial thin section helical images of the abdomen were performed before and after the administration of oral contrast and 85 mL of Omnipaque 350 intravenous contrast. The data set was reformatted in the coronal and sagittal planes and reviewed on an independent workstation. This CT examination was performed using dose optimization techniques as appropriate, variously including the following: *Automated exposure control *Adjustment of mA and/or kV according to patient size (this includes techniques or standardized protocols for targeted exams where dose is matched to indication/reason for exam; i.e. extremities or head) *Use of iterative reconstruction technique DLP: 467.0 mGy-cm FINDINGS: LUNG BASES: Bilateral lung bases are clear. LIVER: No focal lesion is seen in the liver. GALLBLADDER AND BILIARY TREE: Gallbladder appears unremarkable without calcified stones. Common bile duct is not dilated. SPLEEN: The spleen is normal in size without focal lesion. PANCREAS: The pancreas appears unremarkable. ADRENAL GLANDS: Adrenal glands are normal in size without focal lesion bilaterally. KIDNEYS: Precontrast images show no calcified renal stones. Post contrast nephrographic phase images show normal uniform bilateral nephrograms. Definite kidney shows asymmetric prominent lobulation, without discrete focal lesion with abnormal attenuation or enhancement. BOWELS: There is no abnormal dilatation of large and small bowel loops. RETROPERITONEUM: No abnormally enlarged retroperitoneal lymph nodes, mass or hematoma could be seen. BLOOD VESSELS: Abdominal aorta is normal in size and smoothly patent. ABDOMINAL WALL: Small umbilical hernia containing mesenteric fat is seen. PERITONEUM: There was no ascites. There were no abdominal peritoneal inflammatory changes seen. No free peritoneal air was seen. No abnormally enlarged mesenteric lymph nodes are found. BONES: No fracture or dislocation. No focal bone lesion diagnostic of metastatic disease could be seen in the lumbar region. IMPRESSION: 1. Asymmetric marked lobulation of left renal cortex is seen. No discrete focal mass lesion could be identified. The hypoechoic region reported on ultrasound examination does not correspond to lower pole left kidney lesion reported on MRI of lumbar spine. Follow-up ultrasound examination of the kidneys in 6 months is recommended to follow-up the hypoechoic area not visualized on MRI or CT scan. 2. No evidence of renal stones, solid mass lesions or ureteric obstruction. 3. No abdominal mass lesion or lymphadenopathy is found. 4. Small umbilical hernia containing mesenteric fat is present. Assessment & Plan Assessment & Plan (1) Renal mass: Code(s): N28.89 - Other specified disorders of kidney and ureter Category: Medical (2) BPH loc w urin obs/LUTS: Code(s): N40.1 - Benign prostatic hyperplasia with lower urinary tract symptoms Category: Medical Plan Plan renal US in one year, cialis 5 mg daily for BPH symptoms Orders: Orders AMB Urinalysis Automated 07/14/24 Z13.9 - Encounter for screening, unspecified Medications: New tadalafil (Cialis) 5 mg PO DAILY 90 tabs 3RF BPH symptoms Patient Instructions: The patient had an opportunity to ask questions regarding treatment plan. The patient expressed understanding and agreement with the above treatment plan. The patient is aware they should contact our office by phone for worsening of their current condition or the appearance of new symptoms. Compliance is encouraged with any medications and followup testing that is ordered. It is a privilege to be allowed the opportunity to participate in the urologic care of your patient. If you have any questions or concerns regarding treatment for the above conditions please do not hesitate to contact me. The office telephone contact is [phone]. This note is constructed in part using voice recognition software. While every effort has been made to ensure accuracy signal intelligence/electronic warfare errors may have been included. Yours sincerely, Norris Shrestha MD Coding Level of Care Code Est Pt Level 4 (93417) Diagnoses Renal mass N28.89 BPH loc w urin obs/LUTS N40.1
== END 2024-07-14 11:37 | disposition home or self-care (01) ==
PROVIDERS: PCP Physician Assistant; Visit Provider Urology
DX: N28.89 Other specified disorders of kidney and ureter (principal); N40.1 Benign prostatic hyperplasia with lower urinary tract symptoms
CPT/HCPCS: 99214

== ENCOUNTER → 2024-07-14 10:25 | Outpatient (BNVA) | payer MEDICARE, SELFPAY | PROVIDERS: PCP Physician Assistant; Visit Provider Urology | DX: N40.1 Benign prostatic hyperplasia with lower urinary tract symptoms (principal); N28.89 Other specified disorders of kidney and ureter | CPT/HCPCS: 81003; 99212 ==

== ENCOUNTER 2024-09-05 12:37 | Outpatient (REF) | payer MEDICARE, SELFPAY ==
[2024-09-05 14:13] LABS: Alanine Aminotransferase 22 U/L (0-40); Albumin Level 4.3 g/dL (3.5-5.0); Alkaline Phosphatase 92 U/L (39-117); Anion Gap 10 (12-20); Aspartate Amino Transferase 28 U/L (5-37); Bilirubin Total 0.7 mg/dL (0.0-1.0); Blood Urea Nitrogen 15 mg/dL (9-16); Calcium 9.1 mg/dL (8.4-10.2); Carbon Dioxide 31 mmol/L (22-29); Chloride 104 mmol/L (96-108); Cholesterol 238 mg/dL (<200); Estimated Glomerular Filt Rate > 60; Glucose Fasting 104 mg/dL (60-99); HDL Cholesterol 46 mg/dL (>40); LDL Cholesterol Calculated 160 mg/dL (<100); Potassium 4.7 mmol/L (3.3-5.1); Sodium 140 mmol/L (135-145); Total Protein 7.4 g/dL (6.5-8.0); Triglycerides 160 mg/dL (<150)
[2024-09-05 14:18] LABS: Estimated Average Glucose 120 mg/dL; Hemoglobin A1C 151.3966 umol/L; Hemoglobin A1c % 5.8 % (<6.0); Total Hemoglobin (HGBA1C) 3844.1229 umol/L
== END 2024-09-05 12:38 | disposition home or self-care (01) ==
LOC: HO.LAB 12:37
PROVIDERS: PCP Physician Assistant; Visit Provider Physician Assistant
DX: E78.2 Mixed hyperlipidemia (principal); R73.09 Other abnormal glucose
CPT/HCPCS: 36415; 80053; 80061; 83036

== ENCOUNTER 2024-09-07 09:05 | Outpatient (AMB) | payer MEDICARE, SELFPAY ==
--- NOTE | 2024-09-07 09:20 | MHC.PC.OV ---
Vital Signs 09/07/24 09:21 Height 5 ft 4 in Weight 178 lb BMI 30.6 BP 120/80 Blood Pressure Location Lt brachial Position Sitting Pulse 74 Pulse Source Pulse Oximeter Pulse Oximetry (%) 96 Oxygen Delivery Method Room Air Intake Visit Reasons: f/u HLD Intake Note: Patient is here to follow up on HLD. Pt decline flu shot. Tsa Screener Required: No Sales Order Administrator: Not Required per policy Accompanied by: Self / Same As Patient Allergies No Known Allergies [No Known Allergies*] Allergy (Verified 09/07/24 09:26) Medication List - Last Reconciled 09/07/24 by Jossue Pickett PA-C acetaminophen 1,000 mg (2 x 500 mg) PO Q6H PRN alpha lipoic acid 600 mg PO BID 30 days cyclobenzaprine 10 mg PO BEDTIME PRN 30 days gabapentin 600 mg PO TID 30 days ketoconazole 2% 1 appl topical 3XW 4 weeks latanoprost 0.005% 1 drp ophthalmic (eye) BEDTIME magnesium oxide 500 mg PO BEDTIME 30 days hdihsros-fsi-pwtxa-vit K-lycop 400-20-370 mcg (One-A-Day Men's 50 Plus (with vitamin K)) 1 tab PO DAILY pyridoxine (vitamin B6) 100 mg PO DAILY 30 days tadalafil (Cialis) 5 mg PO DAILY Tobacco use date assessed: 09/07/24 Fall risk assessment: 1 Fall in past year Last assessed Fall Risk: 09/07/24 Dental Screening Dental Screen Date: 03/08/24 HPI f/u HLD HPI Details Patient is a 69 year-old male here today for a annual physical. .? Patient has a past medical history significant for hyperlipidemia, chronic lower extremity weakness and lumbar spine pain. Concern--> he reports about a month ago falling and injuring his right knee on the anterior side. He still has some exquisite tenderness to palpation on the lateral aspect of his patella. He is interested in getting x-rays. He also reports having weak urinary stream, sensation of incomplete bladder emptying and nocturia. PLAN: He is willing to try Flomax He also reports having some difficulty sleeping. Has tried Ambien which gave him good relief on sleep. We did discuss the habit-forming nature of this medication he is willing to use this medication on a as needed basis. Continues to have lower extremity weakness/pain and balance issues particularly when standing or walking for long periods of time. He is requesting another referral to a spinal specialist CHRONIC MEDICAL CONDITIONS--> Hyperlipidemia:? Most recent lipid panel continues to show high cholesterol and LDL. Has not been consistently taking his cholesterol medication and promises to start doing so. Again advised to again start statin therapy though he declines my offers and would like to continue working on lifestyle. .. Lumbar disc disease, lower extremity weakness:? Patient is followed by neurologist in [place].? 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 He uses Advil most of the time for his pain.? Does use tramadol on a limited p.r.n. basis when pain skills are 7 in 10. He continues to have weakness in his lower extremities though he reports he is able to manage. --> Underwent EMG of his lower extremities in the findings were consistent with a predominantly L5-S1 bilateral chronic radiculopathy. The chronicity is supported by the presence of a complex repetitive discharges in the left gastrocnemius He reports he has noted worsening balance as he a often feels that he is going to fall forward.? He is willing now to do some more physical therapy to increase his lower extremity strength and work on his balance. Of note--> Did have an MRI of his lumbar spine in May 2023 which did show status post laminectomy at L3-L4. Also did show concentric disc bulging at this level moderate to severe bilateral neural foraminal stenosis progress from previous imaging. Laboratory Tests 03/07/24 09/05/24 12:12 12:48 Creatinine 1.24 1.11 Fasting Glucose 110 H 104 H Cholesterol 247 H 238 H LDL Cholesterol, C alc 174 H 160 H [facility] Medical History Colon cancer screening Mass of skin of left thumb Hyperlipidemia Anxiety Low back pain Surgical History History of back surgery Family History Father No problems noted. Mother No problems noted. Brother In good health Sister In good health Son In good health Daughter In good health Social History Housing: House Alcohol intake: never Patient Tobacco Use Status: Never used Tobacco e-Cigarette/Vaping Use: Never Used Second Hand Smoke Exposure: No Advance Directives Date on File: 07/09/20 service: No Current occupational status: employed Current occupation: [employer] Cognitive needs: Yes Hearing needs: No Vision needs: Yes Questionnaire Thrive Questionnaire Date Thrive assessed: 01/13/24 VINNIE-7 AMB Questionnaire VINNIE-7 Date VINNIE - 7 assessed: 01/13/24 Source: Developed by Drs. Julián Rodas, Candis Jonas, Ricci Ivan and colleagues, with an educational steve from [employer] Review of Systems Const Denies headache(s) Eyes Denies loss of vision ENT Denies vertigo, Denies dizziness, Denies headache(s) and Denies sore throat Card Denies chest pain, Denies leg edema and Denies lightheadedness Resp Denies cough, Denies hemoptysis and Denies wheezing GI Denies abdominal pain, Denies melena, Denies constipation, Denies diarrhea and Denies vomiting Denies dysuria, Denies urinary frequency and Denies urinary urgency Musc Denies arthralgias, Denies joint swelling, Denies numbness and Denies tingling Neuro Denies Abnormal speech present, Denies behavioral changes, Denies vertigo, Denies dizziness, Denies headache(s), Denies loss of vision, Denies memory loss, Denies numbness and Denies tingling Psych Denies anxiety, Denies behavioral changes, Denies depression, Denies memory loss and Denies panic attacks Nathan/Lymph Denies easy bleeding and Denies easy bruising Aller/Immun Denies wheezing Physical exam (Primary Care) Vital Signs: Last Vital Signs Pulse 74 09/07/24 09:21 BP 120/80 09/07/24 09:21 Pulse Ox 96 09/07/24 09:21 Oxygen Delivery Method Room Air 09/07/24 09:21 BMI result Body Mass Index 30.6 Tobacco/Smoking Status: Tobacco use Status Tobacco use date assessed 09/07/24 09/07/24 09:25 Patient Tobacco Use Status Never used Tobacco 09/07/24 09:25 e-Cigarette/Vaping Use Never Used 09/07/24 09:25 Thrive Assessment: Date of Thrive Assessment Date Thrive assessed 01/13/24 09/07/24 09:25 Const General: healthy appearing, no acute distress, alert and awake Nutritional Appearance: well nourished Orientation/consciousness: oriented to person, oriented to place and oriented to time HENMT Ears: TM's normal bilaterally General nose exam: Normal nasal mucous membranes and turbinates present Eyes Conjunctivae: conjunctivae normal Sclerae: sclerae normal Pupils: Equal, round and reactive pupils present Neck Neck: Yes no lymphadenopathy and Yes no JVD Thyroid: Thyroid normal Carotids: no bruits Resp Effort & Inspection: normal respiratory effort and not tachypneic Auscultation: no crackles, no rales, no rhonchi and no wheezes Cardio Rate: regular rate Rhythm: regular rhythm Heart sounds: no murmurs and normal S1 and S2 GI Palpation (GI): Soft to palpation, nontender, no hepatomegaly and no splenomegaly Auscultation: normal bowel sounds Back/Spine/Pelvis Other: LIMITED RANGE OF MOTION LUMBAR SPINE DUE TO STIFFNESS. AMBULATES WITH AN ANTALGIC GAIT Skin General skin exam: no rashes or lesions noted and dry skin Neuro General: oriented to person, oriented to place and oriented to time Cranial nerves: Yes Equal, round and reactive pupils present Speech: No Abnormal speech present Gait exam (Neuro): Normal gait present Motor exam (neuro): no tremor noted Extrem Right upper extremity: full ROM Left upper extremity: full ROM Right lower extremity: full ROM; no edema Left lower extremity: full ROM; no edema Psych Mental Status: mental status grossly normal Speech and movement: Normal speech and movement present Affect: normal affect Attitude: cooperative Thought process: Normal thought process present Coding Level of Care Code Est Pt Level 4 (43979) Diagnoses Right anterior knee pain M25.561 Pain of right patella M25.561 Primary insomnia F51.01 Insomnia type: primary Mixed hyperlipidemia E78.2 Hyperlipidemia type: mixed hyperlipidemia Lumbar disc disease with radiculopathy M51.16 Assessment & Plan Assessment & Plan (1) Right anterior knee pain: Code(s): M25.561 - Pain in right knee Category: Medical Plan: Patient reports a more month ago falling and injuring his right knee. He has continued to have pretty severe pain when touching the lateral aspect of his patella. He would like to get an x-ray of his knee to evaluate for any fracture. (2) Pain of right patella: Code(s): M25.561 - Pain in right knee Category: Medical Plan: As above (3) Insomnia: Code(s): G47.00 - Insomnia, unspecified Category: Medical Qualifiers: Insomnia type: primary Qualified Code(s): F51.01 - Primary insomnia Plan: Patient reports having some trouble sleeping and has used in 5 mg Ambien with good effect. We did discuss the habit-forming nature of this medication and promises to use this medication on as needed basis for sleep (4) Hyperlipidemia: Code(s): E78.5 - Hyperlipidemia, unspecified Category: Medical Qualifiers: Hyperlipidemia type: mixed hyperlipidemia Qualified Code(s): E78.2 - Mixed hyperlipidemia Plan: Patient's most recent fasting lipid panel showing elevated total cholesterol and LDL. He has been working on a low-cholesterol diet. He has not been using statin therapy. We did discuss trying to use atorvastatin 10 mg 3 times per week and he agrees and will start doing so. Goal LDL is to be below 130 and total cholesterol to be below 200. (5) Lumbar disc disease with radiculopathy: Code(s): M51.16 - Intervertebral disc disorders with radiculopathy, lumbar region Category: Medical Plan: Patient is a chronic history of lower lumbar spine pain and lower extremity weakness. Has had lower lumbar spine surgery a few years ago though felt it made no difference in his pain and weakness in his lower extremities. He has done several rounds of physical therapy in the past. He is considering seeing another medicaid collection specialist for 2nd opinion.. Orders: Orders Comprehensive [place]. Panel Fast 09/07/24 E78.2 - Mixed hyperlipidemia Lipid Panel 09/07/24 E78.2 - Mixed hyperlipidemia Complete Blood Count no Diff 09/07/24 E78.2 - Mixed hyperlipidemia Prostate Specific Antigen Scr 09/07/24 N40.1 - Benign prostatic hyperplasia with lower urinary tract symptoms, Z12.5 - Encounter for screening for malignant neoplasm of prostate XR knee RT 4V 09/07/24 M25.561 - Pain in right knee Medications: New atorvastatin 10 mg PO 3XW 39 tabs 3RF 90 days E78.2 - Mixed hyperlipidemia ibuprofen 800 mg PO Q8H PRN 90 tabs 0RF pain 30 days M25.561 - Pain in right knee gabapentin 300 mg PO TID 90 caps 1RF 30 days M51.16 - Intervertebral disc disorders with radiculopathy, lumbar region tamsulosin 0.4 mg PO DAILY 30 caps 3RF 30 days N40.1 - Benign prostatic hyperplasia with lower urinary tract symptoms zolpidem 5 mg PO BEDTIME PRN 10 tabs 0RF sleep 10 days F51.01 - Primary insomnia Refilled acetaminophen 1,000 mg (2 x 500 mg) PO Q6H PRN 30 caps 0RF pain (scale score 7-10) G89.29 - Other chronic pain, M54.50 - Low back pain, unspecified pyridoxine (vitamin B6) 100 mg PO DAILY 30 tabs 3RF 30 days G62.9 - Polyneuropathy, unspecified On Hold gabapentin Hold Comment: Doctor's Order 600 mg PO TID 30 days 90 tabs 6RF G62.9 - Polyneuropathy, unspecified
[2024-09-07 09:21] VITALS: BP 120/80; PULSE 74; O2SAT 96; BMI 30.6
== END 2024-09-07 09:51 | disposition home or self-care (01) ==
PROVIDERS: PCP Physician Assistant; Visit Provider Physician Assistant
DX: M25.561 Pain in right knee (principal); F51.01 Primary insomnia; E78.2 Mixed hyperlipidemia; M51.16 Intervertebral disc disorders with radiculopathy, lumbar region

== ENCOUNTER → 2024-09-07 09:05 | Outpatient (BNVA) | payer MEDICARE, SELFPAY | PROVIDERS: PCP Physician Assistant; Visit Provider Physician Assistant | DX: M25.561 Pain in right knee (principal); F51.01 Primary insomnia; E78.2 Mixed hyperlipidemia; M51.16 Intervertebral disc disorders with radiculopathy, lumbar region | CPT/HCPCS: 99212 ==

== ENCOUNTER 2024-10-11 16:42 | Outpatient (REF) | payer MEDICARE, SELFPAY ==
--- NOTE | ~2024-10-11 | XR_ITS ---
CLINICAL HISTORY: M25.561 - Pain in right knee Exam: AP, lateral, tunnel, and sunrise views of the right knee. Comparison: None. Findings: Bony alignment is anatomic. No fracture or joint effusion. There is a tiny calcification measuring 1 mm in size adjacent to the lateral tibial spine, likely of no clinical significance. Joint spaces are well preserved. No significant osteophyte formation. Impression: Negative right knee radiographs. This document has been electronically signed by: Macho Yeboah MD on 10/13/2024 09:15:04
--- OUTSIDE RECORDS SUMMARY | 2024-10-11 18:23 | XMS_ITS | Encounter Summary ---
Author Organization [employer] Address [address] [place] [address] [address] [place] [address] Care Team Providers Care Industrial Diamond Polisher Name Role Phone Unavailable Primary Care Provider Unavailabl e Encounter Details Date Type Department Care Team (Latest Contact Info) Description 06/22/2019 Abstract C CONVERSIONS Dental, Provider, DDS Social History Tobacco Use Types Packs/Day Years Used Date Smoking Tobacco: Never Assessed Sex and Gender Information Value Date Recorded Sex Assigned at Male 07/20/2022 10:36 AM EDT Legal Sex Male 10:36 AM EDT Gender Identity Not on file Sexual Orientation Straight 07/20/2022 10 :36 AM EDT documented as of this encounter Plan of Treatment Not on file documented as of this encounter Visit Diagnoses Not on filedocumented in this encounter
--- OUTSIDE RECORDS SUMMARY | 2024-10-11 18:23 | XMS_ITS | Clinical Summary ---
Author Organization [employer] Address [address] [place] [address] [address] [place] [address] Care Team Providers Care It Sales Consultant Name Role Phone Unavailable Primary Care Provider Unavailabl e Social History Tobacco Use Types Packs/Day Years Used Date Smoking Tobacco: Never Assessed Sex and Gender Information Value Date Recorded Sex Assigned at Male 07/20/2022 10:36 AM EDT Legal Sex Male 10:36 AM EDT Gender Identity Not on file Sexual Orientation Straight 07/20/2022 10 :36 AM EDT Last Filed Vital Signs Vital Sign Reading Time Taken Comments Blood Pressure 138/88 05/20/2020 12:08 AM EDT Pulse - - Temperature - - Respiratory Rate - - Oxygen Saturation - - Inhaled Oxygen Concentration - - Weight - - Height - - Body Mass Index - - Plan of Treatment Health Maintenance Due Date Last Done Comments CT Colonography 1953 Colonoscopy 1953 Colorectal Cancer Screening 1953 Depression Screening 1953 FIT DNA/Cologuard 1953 FIT 1953 FOBT 1953 Lipid Panel 1953 Sigmoidoscopy 1953 Alcohol/Substance Use Screening 1965 Tobacco Screening 1965 DTaP/Tdap/Td Vaccines (1 - Tdap) 1972 Zoster Vaccines (1 of 2) 2003 Pneumococcal Vaccine: 65+ Ye ars (1 of 1 - PCV) 2018 COVID-19 Vaccine ( - 2023-2 5 season) 2024 Influenza Vaccine (#1) 2024 RSV Patients and Pa tients Aged 60 years or older (1 - 1-dose 75+ series) 2028 HIB Vaccines Aged Out No longer eligi ble based on patient's age to complete this topic HPV Vaccines Aged Out No longer eligi ble based on patient's age to complete this topic Hepatitis A Vaccines Aged Out No long er eligible based on patient's age to complete this topic Hepatitis B Vaccines Aged Out No long er eligible based on patient's age to complete this topic IPV Vaccines Aged Out No longer eligi ble based on patient's age to complete this topic Meningococcal Vaccine Aged Out No river laron eligible based on patient's age to complete this topic RSV under 20 months Aged Out No longe r eligible based on patient's age to complete this topic Rotavirus Vaccines Aged Out No longer eligible based on patient's age to complete this topic
== END 2024-10-11 16:43 | disposition home or self-care (01) ==
LOC: HO.XRAY 16:42
PROVIDERS: PCP Physician Assistant; Visit Provider Physician Assistant
DX: M25.561 Pain in right knee (principal)
CPT/HCPCS: 73564

== ENCOUNTER → 2024-10-11 16:45 | Outpatient (BNV) | payer MEDICARE, SELFPAY | PROVIDERS: PCP Physician Assistant; Visit Provider Radiology Diagnostic Radiology | DX: M25.561 Pain in right knee (principal) | CPT/HCPCS: 73564 ==

== ENCOUNTER 2025-03-06 11:45 | Outpatient (REF) | payer MEDICARE, SELFPAY ==
[2025-03-06 12:53] LABS: Hematocrit 46.1 % (42.0-52.0); Hemoglobin 15.2 g/dl (14.0-18.0); Mean Corpuscular Volume 84.9 fL (80.0-98.0); Mean Platelet Volume 9.1 fL (9.4-12.4); Platelet Count 254 X10*3/uL (160-400); Red Blood Count 5.43 X10*6/uL (4.60-5.80); Red Cell Distribution Width 13.8 % (11.0-16.0); White Blood Count 6.1 X10*3/uL (4.8-10.8)
[2025-03-06 13:18] LABS: Alanine Aminotransferase 20 U/L (0-40); Albumin Level 4.3 g/dL (3.5-5.0); Alkaline Phosphatase 84 U/L (39-117); Anion Gap 11 (12-20); Aspartate Amino Transferase 19 U/L (5-37); Bilirubin Total 0.7 mg/dL (0.0-1.0); Blood Urea Nitrogen 25 mg/dL (9-16); Calcium 9.2 mg/dL (8.4-10.2); Carbon Dioxide 28 mmol/L (22-29); Chloride 107 mmol/L (96-108); Cholesterol 237 mg/dL (<200); Estimated Glomerular Filt Rate 59; Glucose Fasting 105 mg/dL (60-99); HDL Cholesterol 48 mg/dL (>40); LDL Cholesterol Calculated 169 mg/dL (<100); Potassium 4.7 mmol/L (3.3-5.1); Sodium 141 mmol/L (135-145); Triglycerides 103 mg/dL (<150)
--- OUTSIDE RECORDS SUMMARY | 2025-03-06 13:29 | XMS_ITS | Encounter Summary ---
Author Organization [employer] Address [address] [facility] [address] [place] [address] Care Team Providers Care Inner Tube Tuber Machine Operator Name Role Phone Unavailable Primary Care Provider [...]
[2025-03-06 13:39] LABS: Prostate Specific Antigen Scr 2.61 ng/mL (<0.05-4.0)
== END 2025-03-06 11:46 | disposition home or self-care (01) ==
LOC: HO.LAB 11:45
PROVIDERS: PCP Physician Assistant; Visit Provider Physician Assistant
DX: E78.2 Mixed hyperlipidemia (principal); Z12.5 Encounter for screening for malignant neoplasm of prostate; N40.1 Benign prostatic hyperplasia with lower urinary tract symptoms
CPT/HCPCS: 36415; 80053; 80061; 84153; 85027

== ENCOUNTER 2025-03-12 09:00 | Outpatient (AMB) | payer MEDICARE, SELFPAY ==
[2025-03-12 09:05] VITALS: BP 136/80; PULSE 74; TEMP 36.2; O2SAT 97; BMI 30.5
--- NOTE | 2025-03-12 09:06 | A.OFFVIS_ITS ---
Intake Vital Signs 03/12/25 09:05 Height 5 ft 4 in Weight 177 lb 8 oz BMI 30.5 BP 136/80 Blood Pressure Location Lt brachial Position Sitting Pulse 74 Pulse Source Pulse Oximeter Temp 97.1 F Temp Source Temporal Artery Scan Pulse Oximetry (%) 97 Oxygen Delivery Method Room Air Intake Visit Reasons: [facility] G0439 Allergies No Known Allergies (No Known Allergies*) Allergy (Verified 03/12/25 09:31) Medication List - Last Reconciled 03/12/25 by Jossue Pickett PA-C acetaminophen 1,000 mg (2 x 500 mg) PO Q6H PRN alpha lipoic acid 600 mg PO BID 30 days atorvastatin 10 mg PO 3XW 90 days cyclobenzaprine 10 mg PO BEDTIME PRN 30 days gabapentin 600 mg PO TID 30 days Held on 09/07/24. Instructions: Doctor's Order gabapentin 300 mg PO TID 30 days ibuprofen 800 mg PO Q8H PRN 30 days ketoconazole 2% 1 appl topical 3XW 4 weeks latanoprost 0.005% 1 drp ophthalmic (eye) BEDTIME magnesium oxide 500 mg PO BEDTIME 30 days tcrgqrsc-pud-lfgdz-vit K-lycop 400-20-370 mcg (One-A-Day Men's 50 Plus (with vitamin K)) 1 tab PO DAILY pyridoxine (vitamin B6) 100 mg PO DAILY 30 days tadalafil (Cialis) 5 mg PO DAILY tamsulosin 0.4 mg PO DAILY 30 days zolpidem 5 mg PO BEDTIME PRN 10 days HPI [facility] G0439 HPI Details Patient is a 69 year-old male here today for annual wellness visit. .? Patient has a past medical history significant for hyperlipidemia, chronic lower extremity weakness and lumbar spine pain Today we discussed patient's [place] care, end of life planning and comprehensive care plan which was scanned into patient's documents Additional concerns--> has been experiencing upper respiratory infectious type symptoms cough cold and sore throat. Also reports he continues to have weakness in his lower extremities particularly his right lower extremity . He does have lumbar stenosis is status post surgery many years ago. He does report having a lot of pain and instability in his right knees particularly when going up or downstairs. .. BPH: He does report having nocturia more notably over the last few months. Was given tamsulosin last year though has not been taking his medication and promises to restart. Most recent PSA normal Vaccines: Up-to-date COVID vaccine, up-to-date pneumonia vaccine, up-to-date tetanus vaccine, needs shingles Colorectal cancer screening: Cologuard negative in 2019-needs repeat Laboratory Tests 09/05/24 03/06/25 12:48 12:05 RBC 5.43 Creatinine 1.21 Fasting Glucose 105 H Cholesterol 238 H 237 H LDL Cholesterol, C alc 160 H 169 H PSA Screen 2.61 HPI Comments History of Present Illness Details reviewed past medical history- yes reviewed surgical / hospitalization history- yes reviewed current medications- yes reviewed family history- yes home safety throw rugs? grab bars? raised toilet seat? working smoke detectors? activities of daily living difficulty bathing or showering? difficulty dressing? difficulty using the toilet? difficulty getting in and out of bed? difficulty walking? receives help from other person's with any of the above tasks? instrumental activities of daily living uses telephone - gets to place out of walking distance- go shopping for groceries- repairs own meals- does own minor home maintenance- does own laundry- does own housework- manages own money- currently takes medication- end of life planning discussed advanced directives- yes advanced directives on file? discussed wishes expressed in advanced directives. fall risk have you had any falls with injuries in the past year? have you had 2 or more falls in the past year? fall risk assessment: [facility] Medical History Colon cancer screening Mass of skin of left thumb Hyperlipidemia Anxiety Low back pain Surgical History History of back surgery Family History Father No problems noted. Mother No problems noted. 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 Cognitive needs: Yes Hearing needs: No Vision needs: Yes Questionnaire Medicare Wellness Checkup [age] What gender do you identify with?: male During the past 4 weeks, how much have you been bothered by emotional problems such as feeling anxious, depressed, irritable, sad or downhearted, and blue?: not at all During the past 4 weeks, has your physical & emotional health limited your social activities with family, friends, neighbors, or groups?: slightly During the past 4 weeks, how much bodily pain have you generally had?: mild pain During the past 4 weeks, was someone available to help you if you needed & wanted help?: yes, as much as I wanted During the past 4 weeks, what was the hardest physical activity you could do for at least 2 minutes?: moderate Can you get to places out of walking distance without help? (For eg., can you travel alone on buses, taxis or drive your car?): Yes Can you go shopping for groceries or clothes without someone's help?: Yes Can you prepare your own meals?: Yes Can you do your housework without help?: Yes Because of any health problems, do you need the help of another person with your personal care needs such as eating, bathing, dressing or getting around the house?: No Can you handle your own money without help?: Yes During the past 4 weeks, how would you rate your health in general?: good During the past 4 weeks how have things been going for you?: pretty well Are you having difficulties driving your car?: no Do you always fasten your seat belt when you are in a car?: yes, usually During past 4 weeks, have you been bothered by the following: never: Falling or dizzy when standing up, Trouble eating well?, Teeth or denture problems? and Problems using the telephone?, sometimes: Tiredness or fatigue? and often: Sexual problems? Have you fallen 2 or more times in the past year?: No Are you afraid of falling?: Yes Are you a smoker?: no During the past 4 weeks, how many drinks of wine, beer, or other alcoholic beverages did you have?: no alcohol at all Do you exercise for about 20 minutes 3 or more times a week?: yes, all the time Have you been given information to help with the following?: yes: Keeping track of your medications? and no: Hazards in your house that might hurt you? How often do you have trouble taking medicines the way you have been told to take them?: I seldom take medications as prescribed How confident are you that you can control & manage most of your health problems?: very confident What is your race?: Mini Mental State Exam (MMSE) Orientation What is the (year) (season) (date) (day) (month)?: year Where are we (state) (county) (town or city) (hospital) (floor)?: town or city Attention & Calculation (CHOOSE ONE) Spell WORLD backwards (DLROW): 5 letters Score Score: 7 Activity of Daily Living Bathing - sponge bath, tub bath or shower: receives no assistance (gets in/out by self, if usual bathing means Dressing - getting clothes from closets & drawers, including inner/outer garments & fasteners.: gets clothes & gets completely dressed without help Toileting - going to the 'toilet room' for urine/bowel elimination & cleaning self/arranging clothes: goes to toilet room, cleans self, arranges clothes without help Transfer: moves in & out of bed and chair without help (may use support object) Continence: controls urination/bowel movements completely by self Feeding: feeds self without help Total Score: 0 Information obtained from: patient Using telephone: independent Traveling: independent Shopping: independent Preparing meals: independent Housework: independent Taking medicine: independent Managing money: independent PHQ-9 Over the last 2 weeks, how often have you been bothered by any of the following problems? 1. Little interest or pleasure in doing things: several days 2. Feeling down, depressed, or hopeless: not at all 3. Trouble falling or staying asleep, or sleeping too much: not at all 4. Feeling tired or having little energy: several days 5. Poor appetite or overeating: not at all 6. Feeling bad about yourself - or that you are a failure or have let yourself or your family down: not at all 7. Trouble concentrating on things, such as reading the newspaper or watching television: not at all 8. Moving or speaking so slowly that other people could have noticed. Or the opposite - being so fidgety or restless that you have been moving around a lot more than usual: not at all 9. Thoughts that you would be better off or of hurting yourself in some way: not at all Total score: 2 Depression Screening Interpretation: Negative Depression Screening Done: Yes 44217 - PHQ-9 Billing: Yes Source: Developed by Drs. Julián Rodas, Candis Jonas, Ricci Ivan and colleagues, with an educational steve from [employer]. Physical Exam Vital Signs: Last Vital Signs Temp 97.1 F 03/12/25 09:05 Pulse 74 03/12/25 09:05 BP 136/80 03/12/25 09:05 Pulse Ox 97 03/12/25 09:05 Oxygen Delivery Method Room Air 03/12/25 09:05 BMI result Body Mass Index 30.5 HEENT Other: hearing screening whisper test- passed Eyes Other: vision screening- 20 20 OS OD OU Other: urinary incontinence? no Neuro Other: balance Romberg- normal tandem walk test-able walk-in turned test- able rise from sit to stand- within 3 sec Assessment & Plan Assessment & Plan (1) Medicare annual wellness visit, subsequent: Code(s): Z00.00 - Encounter for general adult medical examination without abnormal findings Plan: As per HPI (2) Knee pain, right: Code(s): M25.561 - Pain in right knee Qualifiers: Chronicity: chronic Qualified Code(s): M25.561 - Pain in right knee; G89.29 - Other chronic pain Plan: Will send for physical therapy and get x-rays of the right knee to evaluate for any osteoarthritis. (3) Hyperlipidemia: Code(s): E78.5 - Hyperlipidemia, unspecified Qualifiers: Hyperlipidemia type: mixed hyperlipidemia Qualified Code(s): E78.2 - Mixed hyperlipidemia Plan: Patient continues to have elevated total cholesterol and LDL. He has not been regularly using atorvastatin and promises to restart using atorvastatin on a 3 time a week basis. Will recheck his lipid panel with goal LDL to be below 130 (4) Polyneuropathy: Code(s): G62.9 - Polyneuropathy, unspecified Plan: Continues to have motor weakness in the lower extremities likely secondary to his lumbar spine issue. He has done physical therapy in his status post surgery of his lower lumbar spine in [place] though no further surgical treatment has been offered. He is interested in reestablishing care with local neurologist for further evaluation. (5) BPH loc w urin obs/LUTS: Code(s): N40.1 - Benign prostatic hyperplasia with lower urinary tract symptoms Plan: Patient promises to restart tamsulosin for his reports of nocturia . Orders: Orders PT Evaluation and Treatment 03/12/25 G89.29 - Other chronic pain, M25.561 - Pain in right knee Lipid Panel 03/12/25 E78.2 - Mixed hyperlipidemia Complete Blood Count no Diff 03/12/25 E78.2 - Mixed hyperlipidemia XR knee RT 3V 03/12/25 G89.29 - Other chronic pain, M25.561 - Pain in right knee Comprehensive [place]. Panel Fast 03/12/25 E78.2 - Mixed hyperlipidemia Referrals Neurology Referral G62.9 - Polyneuropathy, unspecified Medications: New azithromycin For 250 mg dose pack: take 500 mg today (day 1), then 250 mg for 4 days (days 2-5) PO 6 tabs 0RF J40 - Bronchitis, not specified as acute or chronic Changed From tamsulosin 0.4 mg PO DAILY 30 days 30 caps 3RF N40.1 - Benign prostatic hyperplasia with lower urinary tract symptoms To tamsulosin 0.4 mg PO DAILY 90 caps 1RF 90 days N40.1 - Benign prostatic hyperplasia with lower urinary tract symptoms Quality Reporting (2019) Depression/Bipolar (159/160/161/177) PHQ-9: Total score: 2 Coding Level of Care Code Medicare Subsequent (G0439) Est Pt Level 4 (93575) Diagnoses Medicare annual wellness visit, subsequent Z00.00 Chronic pain of right knee M25.561; G89.29 Chronicity: chronic Mixed hyperlipidemia E78.2 Hyperlipidemia type: mixed hyperlipidemia Polyneuropathy G62.9 BPH loc w urin obs/LUTS N40.1 CPT Codes Advance Care Planning - Advance Care Planning discussion: On file, no changes ([id number]) Advance Care Planning - Time spent: 1-15 minutes, on File ([id number]) Additional Codes PHQ-9 - 21574 - PHQ-9 Billing: Yes ([id number]) Advance Care Planning Advance Care Planning discussion: On file, no changes Date of discussion: 03/12/25 Forms completed: SLAVA Time spent: 1-15 minutes, on File Actual minutes spent: 2
--- OUTSIDE RECORDS SUMMARY | 2025-03-12 09:39 | XMS_ITS | Encounter Summary ---
Author Organization [employer] Address [address] [place] [address] Care Team Providers Care Pan Shaker Name Role Phone Unavailable Primary Care Provider [...]
== END 2025-03-12 10:04 | disposition home or self-care (01) ==
LOC: HO.HMCH 09:01
PROVIDERS: PCP Physician Assistant; Visit Provider Physician Assistant
DX: Z00.00 Encounter for general adult medical examination without abnormal findings (principal); M25.561 Pain in right knee; G89.29 Other chronic pain; E78.2 Mixed hyperlipidemia; G62.9 Polyneuropathy, unspecified; N40.1 Benign prostatic hyperplasia with lower urinary tract symptoms

== ENCOUNTER 2025-03-12 09:00 | Outpatient (REF) | payer MEDICARE, SELFPAY ==
--- NOTE | ~2025-03-12 | XR_ITS ---
EXAMINATION: XR KNEE, RIGHT CLINICAL INFORMATION: M25.561 - Pain in right knee COMPARISON: Degenerative 09/11/2024 TECHNIQUE: Four views of the right knee. FINDINGS: There is no joint effusion. There is minimal narrowing of the lateral joint space. There are no osteophytes. Small focal nonspecific calcific density is visualized cephalad to the lateral tibial spine. There is present on the prior. XR/XR knee RT 3V IMPRESSION: Unremarkable right knee aside from stable mild nonspecific narrowing of the lateral joint space. Electronically signed by: Harvey Ann MD 03/12/2025 12:24 PM EDT
== END 2025-03-12 09:01 | disposition home or self-care (01) ==
LOC: HO.XRAY 09:00
PROVIDERS: PCP Physician Assistant; Visit Provider Physician Assistant
DX: Z00.01 Encounter for general adult medical examination with abnormal findings (principal); N40.1 Benign prostatic hyperplasia with lower urinary tract symptoms; G62.9 Polyneuropathy, unspecified; E78.2 Mixed hyperlipidemia; M25.561 Pain in right knee; G89.29 Other chronic pain
CPT/HCPCS: 73562; 96127; 99212

== ENCOUNTER → 2025-03-12 10:42 | Outpatient (BNV) | payer MEDICARE, SELFPAY | PROVIDERS: PCP Physician Assistant; Visit Provider Radiology Diagnostic Radiology | DX: M25.561 Pain in right knee (principal) | CPT/HCPCS: 73562 ==

== ENCOUNTER 2025-04-19 15:17 | Outpatient (AMB) | payer MEDICARE, SELFPAY ==
--- OUTSIDE RECORDS SUMMARY | 2025-04-19 15:22 | XMS_ITS | Encounter Summary ---
Author Organization [facility] Address [address] [place] [phone] Phone Care Team Providers Care Data Deliverables Manager Name Role Phone Jossue Pickett Primary Care Provider + Encounter Details Date Type Department Care Team (Late st Contact Info) Description 04/27/2019 Transcribe Orders [facility], Radio Flouroscopy [address] [place] [address] Karthikeyan Ferguson [address] [place] [address] [email or web address] Social History Tobacco Use Types Packs/Day Years Used Date Smoking Tobacco: Never Smokeless Tobacco: Never Alcohol Use Standard Drinks/Week Comments Yes 0 (1 standard drink = 0.6 oz pur e alcohol) Sex and Gender Information Value Date Recorded Sex Assigned at Not on file Legal Sex Male 2:02 PM EDT Gender Identity Not on file Sexual Orientation Not on file documented as of this encounter Plan of Treatment Not on file documented as of this encounter Visit Diagnoses Not on filedocumented in this encounter Care Teams Data Deliverables Manager Relationship Specialty Start Date End Date Jossue Pickett PA [address] [place] [id number] PCP - General 10/06/18 documented as of this encounter Additional Source Comments The information contained in this document represents components of the legal health record. It is not the complete legal health record.[facility]
--- OUTSIDE RECORDS SUMMARY | 2025-04-19 15:23 | XMS_ITS | Encounter Summary ---
Author Organization [employer] Address [address] [place] [address] Care Team Providers Care Instructor Of Education Name Role Phone Unavailable Primary Care Provider [...]
[2025-04-19 15:25] VITALS: BP 116/80; PULSE 82; RESP 18; TEMP 36.1; O2SAT 96; BMI 30.2
--- NOTE | 2025-04-19 15:25 | MHC.PC.OV ---
Vital Signs 04/19/25 15:25 Height 5 ft 4 in Weight 176 lb BMI 30.2 BP 116/80 Blood Pressure Location Lt brachial Position Sitting Respiration 18 Pulse 82 Pulse Source Pulse Oximeter Temp 97 F Temp Source Temporal Artery Scan Pulse Oximetry (%) 96 Oxygen Delivery Method Room Air Intake Visit Reasons: Med F/U-HTN Geochemist Required: No Accompanied by: Self / Same As Patient Allergies No Known Allergies (No Known Allergies*) Allergy (Verified 04/19/25 15:40) Medication List - Last Reconciled 04/19/25 by Jossue Pickett PA-C acetaminophen 1,000 mg (2 x 500 mg) PO Q6H PRN alpha lipoic acid 600 mg PO BID 30 days atorvastatin 10 mg PO 3XW 90 days cyclobenzaprine 10 mg PO BEDTIME PRN 30 days gabapentin 600 mg PO TID 30 days Held on 09/07/24. Instructions: Doctor's Order ibuprofen 800 mg PO Q8H PRN 30 days ketoconazole 2% 1 appl topical 3XW 4 weeks latanoprost 0.005% 1 drp ophthalmic (eye) BEDTIME lisinopril 5 mg PO DAILY 30 days magnesium oxide 500 mg PO BEDTIME 30 days esgnzjsi-opn-jyszz-vit K-lycop 400-20-370 mcg (One-A-Day Men's 50 Plus (with vitamin K)) 1 tab PO DAILY pyridoxine (vitamin B6) 100 mg PO DAILY 30 days tadalafil (Cialis) 5 mg PO DAILY tamsulosin 0.4 mg PO DAILY 90 days zolpidem 5 mg PO BEDTIME PRN 10 days Tobacco use date assessed: 04/19/25 Fall risk assessment: No Falls in past year Dental Screening Dental Screen Date: 04/19/25 Did you have a dental visit in the last 12 months?: Yes Did you have a dental problem in the last 6 months where you did not have access to dental care?: No Was dental information given to patient?: Patient has dentist HPI Med F/U-HTN HPI Details The patient is a 70-year-old male presenting with hypertension and lumbar radiculopathy. The patient experienced a sinus infection a few weeks ago, during which elevated blood pressure was noted at the emergency room, leading to the initiation of antihypertensive medication. The patient monitors his blood pressure at home regularly, reporting consistent readings within normal limits. The patient reports a history of lumbar radiculopathy, with pain radiating down the right lower extremity, exacerbated by standing and relieved by sitting. He has undergone physical therapy and nerve ablation procedures in the past, with temporary relief. He has also undergone a lumbar spine surgery [facility] general though feels it was not effective and may have made his lower right extremity weakness worse. The patient is currently on gabapentin for pain management and has an upcoming appointment with a neurologist. The patient underwent lumbar surgery approximately four years ago, with a history of disc bulges at L4-L5 and L2-L3. He expresses regret over the surgery, noting better condition prior to the procedure. [facility] Medical History Colon cancer screening Mass of skin of left thumb Hyperlipidemia Anxiety Low back pain Surgical History History of back surgery Family History Father No problems noted. Mother No problems noted. 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 1. Little interest or pleasure in doing things: several days 2. Feeling down, depressed, or hopeless: not at all 3. Trouble falling or staying asleep, or sleeping too much: not at all 4. Feeling tired or having little energy: several days 5. Poor appetite or overeating: not at all 6. Feeling bad about yourself - or that you are a failure or have let yourself or your family down: not at all 7. Trouble concentrating on things, such as reading the newspaper or watching television: not at all 8. Moving or speaking so slowly that other people could have noticed. Or the opposite - being so fidgety or restless that you have been moving around a lot more than usual: not at all 9. Thoughts that you would be better off or of hurting yourself in some way: not at all Total score: 2 Depression Screening Interpretation: Negative Depression Screening Done: Yes Source: Developed by Drs. Julián Rdoas, Candis Jonas, Ricci Ivan and colleagues, with an educational steve from [employer]. Thrive Questionnaire Date Thrive assessed: 04/19/25 AUDIT C Alcohol Use Questionnaire (AUDIT-C) 1. How often do you have a drink containing alcohol?: Never 3. How often do you have six or more drinks on one occasion?: Never Total Score: 0 VINNIE-7 AMB Questionnaire VINNIE-7 Date VINNIE - 7 assessed: 04/19/25 Feeling nervous, anxious, or on edge: 0 = Not at all Not being able to stop or control worryin = Not at all Worrying too much about different things: 0 = Not at all Trouble relaxin = Not at all Being so restless that it is hard to sit still: 0 = Not at all Becoming easily annoyed or irritable: 0 = Not at all Feeling afraid as if something awful might happen: 0 = Not at all Total VINNIE-7 score (0-4 normal; 5-9 mild; 10-14 moderate; 15-21 severe): 0 Source: Developed by Drs. Julián Rodas, Candis Jonas, Ricci Ivan and colleagues, with an educational steve from [employer]. Review of Systems Const Denies headache(s) Eyes Denies loss of vision ENT Denies vertigo, Denies dizziness, Denies headache(s) and Denies sore throat Card Denies chest pain, Denies leg edema and Denies lightheadedness Resp Denies cough, Denies hemoptysis and Denies wheezing GI Denies abdominal pain, Denies melena, Denies constipation, Denies diarrhea and Denies vomiting Denies dysuria, Denies urinary frequency and Denies urinary urgency Musc Denies arthralgias, Denies joint swelling, Denies numbness and Denies tingling Neuro Denies Abnormal speech present, Denies behavioral changes, Denies vertigo, Denies dizziness, Denies headache(s), Denies loss of vision, Denies memory loss, Denies numbness and Denies tingling Psych Denies anxiety, Denies behavioral changes, Denies depression, Denies memory loss and Denies panic attacks Nathan/Lymph Denies easy bleeding and Denies easy bruising Aller/Immun Denies wheezing Physical exam (Primary Care) Vital Signs: Last Vital Signs Temp 97 F 04/19/25 15:25 Pulse 82 04/19/25 15:25 Resp 18 04/19/25 15:25 BP 116/80 04/19/25 15:25 Pulse Ox 96 04/19/25 15:25 Oxygen Delivery Method Room Air 04/19/25 15:25 BMI result Body Mass Index 30.2 Tobacco/Smoking Status: Tobacco use Status Tobacco use date assessed 04/19/25 04/19/25 15:38 Patient Tobacco Use Status Never used Tobacco 04/19/25 15:38 e-Cigarette/Vaping Use Never Used 04/19/25 15:38 PHQ-9: PHQ-9 Score PHQ-9: Total score 2 04/19/25 15:47 Depression Screening Interpretation: Negative Thrive Assessment: Date of Thrive Assessment Date Thrive assessed 04/19/25 04/19/25 15:38 Const General: healthy appearing, no acute distress, alert and awake Nutritional Appearance: well nourished Orientation/consciousness: oriented to person, oriented to place and oriented to time HENMT Ears: TM's normal bilaterally General nose exam: Normal nasal mucous membranes and turbinates present Eyes Conjunctivae: conjunctivae normal Sclerae: sclerae normal Pupils: Equal, round and reactive pupils present Neck Neck: Yes no lymphadenopathy and Yes no JVD Thyroid: Thyroid normal Carotids: no bruits Resp Effort & Inspection: normal respiratory effort and not tachypneic Auscultation: no crackles, no rales, no rhonchi and no wheezes Cardio Rate: regular rate Rhythm: regular rhythm Heart sounds: no murmurs and normal S1 and S2 GI Palpation (GI): Soft to palpation, nontender, no hepatomegaly and no splenomegaly Auscultation: normal bowel sounds Back/Spine/Pelvis Other: Ambulates with an antalgic gait when walking Skin General skin exam: no rashes or lesions noted and dry skin Neuro General: oriented to person, oriented to place and oriented to time Cranial nerves: Yes Equal, round and reactive pupils present Speech: No Abnormal speech present Gait exam (Neuro): Normal gait present Motor exam (neuro): no tremor noted Extrem Other: Right lower extremity 3/5 strength as compared to left lower extremity Right upper extremity: full ROM Left upper extremity: full ROM Right lower extremity: full ROM; no edema Left lower extremity: full ROM; no edema Psych Mental Status: mental status grossly normal Speech and movement: Normal speech and movement present Affect: normal affect Attitude: cooperative Thought process: Normal thought process present Coding Level of Care Code Est Pt Level 4 (33288) Diagnoses Primary hypertension I10 Hypertension type: primary hypertension Lumbar disc disease with radiculopathy M51.16 Assessment & Plan Assessment & Plan (1) HTN (hypertension): Code(s): I10 - Essential (primary) hypertension Category: Medical Qualifiers: Hypertension type: primary hypertension Qualified Code(s): I10 - Essential (primary) hypertension Plan: Patient has been started on lisinopril 5 mg which has seem to be effective for his blood pressure. His blood pressure acceptable today in office and will continue current dose of lisinopril with goal blood pressure to remain below 140/90. (2) Lumbar disc disease with radiculopathy: Code(s): M51.16 - Intervertebral disc disorders with radiculopathy, lumbar region Category: Medical Plan: The patient experiences pain radiating down the right lower extremity, exacerbated by standing and relieved by sitting. He has undergone physical therapy and nerve ablation with temporary relief. An MRI is planned to evaluate for worsening disc herniation, and a neurology consultation is scheduled. Orders: Orders MR lumbar spine wo con 04/19/25 M51.16 - Intervertebral disc disorders with radiculopathy, lumbar region Referrals Cardiology Referral R00.0 - Tachycardia, unspecified Medications: Resumed gabapentin 600 mg PO TID 90 tabs 6RF 30 days G62.9 - Polyneuropathy, unspecified gabapentin 600 mg PO TID 30 days 90 tabs 6RF G62.9 - Polyneuropathy, unspecified
== END 2025-04-19 15:56 | disposition home or self-care (01) ==
LOC: HO.HMCH 15:18
PROVIDERS: PCP Physician Assistant; Visit Provider Physician Assistant
DX: I10 Essential (primary) hypertension (principal); M51.16 Intervertebral disc disorders with radiculopathy, lumbar region

== ENCOUNTER → 2025-04-19 15:17 | Outpatient (BNVA) | payer MEDICARE, SELFPAY | PROVIDERS: PCP Physician Assistant; Visit Provider Physician Assistant | DX: I10 Essential (primary) hypertension (principal); M51.16 Intervertebral disc disorders with radiculopathy, lumbar region | CPT/HCPCS: 99212 ==

== ENCOUNTER → 2025-04-30 17:58 | Outpatient (BNV) | payer MEDICARE, SELFPAY | PROVIDERS: PCP Physician Assistant; Visit Provider Radiology Diagnostic Radiology | DX: D41.02 Neoplasm of uncertain behavior of left kidney (principal) | CPT/HCPCS: 72148 ==

== ENCOUNTER 2025-04-30 18:00 | Outpatient (REF) | payer MEDICARE, SELFPAY ==
--- NOTE | ~2025-04-30 | MR_ITS ---
CLINICAL HISTORY: M51.16 - Intervertebral disc disorders with radiculopathy, lumbar region --- Additional Notes or Special Instructions: Patient with continued lower lumbar spine radiculopathy down right lower Exam: MRI lumbar spine without IV contrast Comparison: MR/SR - MR LUMBAR SPINE WITHOUT THEN WITH IV CONTRAST - 06/16/23 09:10 EDT Findings: Lumbar spine alignment is normal. No acute fracture or suspicious osseous lesion. Progressive Schmorl's node with mild edema L4 inferior endplate. Stable small Schmorl's nodes L2 and L3 inferior endplates. There is mild endplate edema of L3-4 and L2 inferior endplate. Multilevel prevertebral osteophytes of the lumbar spine. Conus medullaris terminates at upper L1, normal morphology. Congenitally slender lumbar spinal canal. Paraspinal musculature unremarkable. Multilevel disc desiccation. Incidental note of left renal lower pole cortical mass 2.3 x 1.6 cm, previously 2.1 x 1.5 cm. Right extrarenal pelvis. Extensive sigmoid diverticulosis. Segmental analysis: T12-L1: Normal disc. No central canal stenosis or foraminal narrowing. Mild right facet arthrosis. Stable. L1-2: No disc protrusion or bulge. Mild facet arthrosis bilaterally. No central canal stenosis or foraminal narrowing. Stable. L2-3: Mild disc height loss and mild diffuse annular disc bulge. Mild facet arthrosis. Mild central canal stenosis, mild left worse than right inferior foraminal narrowing, the disc is likely compressing on L2 exiting nerve root on the left. Mildly progressed. L3-4: Status post posterior central decompression. Progressive moderate to severe disc height loss, diffuse annular disc bulge. Advanced facet arthrosis. Mild central canal stenosis with more conspicuous narrowing of the right lateral recess due to bulged disc and facet hypertrophy. Severe foraminal narrowing bilaterally, worse on the right. Bilateral L3 exiting nerve roots are compressed. Mildly progressed. L4-5: Disc height is maintained, small posterior annular fissure and mild diffuse posterior disc bulge extending to the left foramina. Facet arthrosis bilaterally, thickened ligamentum flavum. Mild central canal stenosis, [id number]-wd-sdcsxfqv foraminal narrowing bilaterally, worse on the left. Stable. L5-S1: Mild diffuse posterior disc bulge. Bilateral facet arthropathy. No central canal stenosis. Jvty-vf-jdpmrhtp foraminal narrowing bilaterally. Stable. Impression: 1. Mildly progressive multilevel degenerative spondylosis of the lumbar spine, worst at L3-4 as detailed above. 2. Left renal mass slightly enlarged, malignancy needs to be excluded, recommend renal CT or MRI for further evaluation if not done already. 3. Sigmoid diverticulosis. This document has been electronically signed by: Maribel Ge MD on 05/02/2025 09:41:43
--- OUTSIDE RECORDS SUMMARY | 2025-04-30 18:02 | XMS_ITS | Encounter Summary ---
Author Organization [employer] [facility] Address [address] [place] [address] Care Team Providers Care Tile Power Shear Operator Name Role Phone Unavailable Primary Care [...]
--- OUTSIDE RECORDS SUMMARY | 2025-04-30 18:02 | XMS_ITS | Encounter Summary ---
Author Organization [facility] Address [address] [place] [phone] Phone Care Team Providers Care Seismograph Helper Name Role Phone Jossue Pickett Primary Care Provider + Encounter Details Date Type Department Care Team (Late st Contact Info) Description 04/27/2019 Transcribe Orders [facility] Outpatient Care, Radio Flouroscopy [address] [place] [address] Karthikeyan Ferguson [address] [place] [address] [email or web address] Social History Tobacco Use Types Packs/Day Years [...] on filedocumented in this encounter Care Teams Seismograph Helper Relationship Specialty Start Date End Date Jossue Pickett PA [address] [place] [id number] PCP - General 10/06/18 documented as of this encounter Additional Source Comments The information contained in this document represents components of the legal health record. It is not the complete legal health record.[facility]
== END 2025-04-30 18:01 | disposition home or self-care (01) ==
LOC: HO.MRI 18:00
PROVIDERS: PCP Physician Assistant; Visit Provider Physician Assistant
DX: M51.16 Intervertebral disc disorders with radiculopathy, lumbar region (principal)
CPT/HCPCS: 72148

== ENCOUNTER 2025-05-09 14:25 | Outpatient (AMB) | payer MEDICARE, SELFPAY ==
--- NOTE | 2025-05-09 14:58 | MHC.OFFVIS ---
Intake Visit Reasons: neuropathic pain lower extremeties, last seen 2015 Allergies No Known Allergies (No Known Allergies*) Allergy (Verified 04/19/25 15:40) Medication List - Last Reconciled 05/09/25 by Rashida Quispe MD acetaminophen 1,000 mg (2 x 500 mg) PO Q6H PRN atorvastatin 10 mg PO 3XW 90 days gabapentin 600 mg PO TID 30 days ibuprofen 800 mg PO Q8H PRN 30 days latanoprost 0.005% 1 drp ophthalmic (eye) BEDTIME lisinopril 5 mg PO DAILY 30 days magnesium oxide 500 mg PO BEDTIME 30 days tsxxfbqn-ped-awwhy-vit K-lycop 400-20-370 mcg (One-A-Day Men's 50 Plus (with vitamin K)) 1 tab PO DAILY pyridoxine (vitamin B6) 100 mg PO DAILY 30 days tadalafil (Cialis) 5 mg PO DAILY tamsulosin 0.4 mg PO DAILY 90 days HPI Comments Details: This is a 70yr old man last seen in April 2016 with chronic intractable low back pain and gluteal pain. He has had multiple lumbar spine and pelvic imaging in the past revealing mild amount of foraminal stenosis. 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 He has been stable with no major improvement. In recent weeks to months, his balance is getting worse but no falls reported. Painful cramps are better with exercises and stretches. It is worsened by walking and getting up from sitting postion. Laying down makes it somewhat better. It never goes away completely. Some days he feels decent in the morning. Feels exhausted easily. Climbing up hill makes the pain worse after walking 100 ft leg pain in buttocks. Balance is poor. Numbness in legs and Pins and needles in legs. In 2019 he had L3-4 bilateral laminectomy at [facility] but it did not lead to any improvement, in fact he feels he is worse since then. ? He has been on IVIG 40 g per day for 4 days 3-4 weekly since 05/25/14 for 2 yrs. He did not notice any significant change in his strength so far. If he walks on stairs he gets increased pain in the right posterior thigh and calf. Slight improvement in poor balance. ? 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 After that he would have intermittent low back pain which was not significant. Around September 2013 he started noticing pain in the right buttock area that is deep and radiates down the right leg. The pain would get worse if he was sitting for a while. He has also noted a sense of tightening of the right lower extremity muscles. The right foot tingles at times. He is no longer able to bear weight on the right foot alone and has to sit down to put on his pants. He is also having some balance problems. He has noticed increased frequency of cramping in his calves and toes particularly on the right, which occurs most nights and even during the day. ? He has no bladder or bowel control problems. There is no persistent numbness or loss of sensation. There is no definite back pain. ? He had a nerve conduction study done of the right leg back in December that suggested a chronic lumbar radiculopathy but no evidence of neuropathy. MRI of the lumbar spine in February showed some facet hypertrophy and mild lateral stenosis and diffuse disc bulges at the lower lumbar levels but no ken disc herniation. Pelvic CT was likewise unremarkable. [facility] Medical History (Updated 05/09/25 @ 15:08 by Rashida Quispe MD) Lumbar radiculopathy Arthritis Depression Peripheral neuropathy Colon cancer screening Mass of skin of left thumb Hyperlipidemia Anxiety Low back pain Surgical History History of back surgery Family History Father No problems noted. Mother No problems noted. 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 Mental Status:?Normal attention, orientation, memory and affect.? Cranial Nerves:?Pupils are equal, round and reactive to light. External occular muscles are intact. Visual yan are full. Face is symmetrical. Facial sensations are normal. Tongue is midline. Palate elevates symmetrically. Shoulder shrugging is normal. Hearing to bedside conversation is normal.?.? Motor Examination:?Motor Examination:?Right calf and peroneal fasciculation. KJs 1 +on the left and 1+ on the right, R AJ 0+, L AJ 0+. Plantars are flexors. He has difficulty standing on toes on the left foot and weak on the right. Right EHL 4/5, left EHL 3/5, EDB R 4/5,EDBL 2-3/5, TA 5-/5 on left and 5/5 on right. Evertors are 4+/5on R and 4-/5 on left. Gastroc right 4+/5. Atrophy of right gastroc med. foot drop on left on walking on heels. Not able to get up on toes on either side . Distal blunting of vibration below the mid tarsal level bilaterally, left worse than right. Mild blunting of pinprick sensation in the toes bilaterally?.? Gait Exam:?Slow and cautious with a slapping gait on the left.?.? Cerebellar Signs:?Hakjqb-zt-owav is ok.?.? Extrapyramidal System:?No tremor, rigidity with normal facial expressions.? Pronator Drift:?not present?.? Involuntary Movements:?No tremors seen?.? Speech:?Normal.? General Examination: ? GENERAL APPEARANCE:?normal,?in no acute distress.? SKIN:?no rashes,?no significant birthmarks.? HEART:?S1, S2 normal,?no murmurs.? LUNGS:?clear anteriorly and posteriorly.? EXTREMITIES:?no edema.? PSYCH:?alert, oriented,?cognitive function intact,?cooperative with exam.? Assessment & Plan Assessment & Plan (1) Lumbar radiculopathy: Comment: Bilateral lumbar polyradiculopathy ( L4-S1 radiculopathy) ? auto immune. MRI LS at [facility] in February 2016: signal abnormality in the thecal sac??. facet arthropthy and bilateral L3/4 and 4/5 mod foraminal stenoses. NCV/EMG LE 05/01/14 MILD DIFFUSE MOTOR AXONAL LOSS IN THE LOWER EXTEMITY NERVES BILATERALLY. ABSENT RIGHT H-REFLEX CONSISTENT WITH A PROXIMAL ABNORMALITY IN THE RIGHT S1 REFLEX ARC. EMG OF BOTH LOWER EXTREMITIES (L2-S1 MUSCLES INCLUDING PARASPINAL) MUSCLES IS CONSISTENT WITH BILATERAL CHRONIC DENERVATIVE CHANGES IN THE L4-S1 INNERVATED MUSCLES CONSISTENT WITH BILATERAL LUMBOSACRAL POLYRADICULOPATHY. MRI shows some facet hypertrophy and lateral stenosis at L3-4 and L4-5 that does not expalin the significant deficits. Pelvic CT likewise does not have an adequate explanation. Spinal fluid has slight lymphocytic pleocytosis( 8 cells) with normal protein, glucose, and immunoelectrophoresis.Unlikely limited form of motor neuron disease. Appt. At [facility] on 08/10/14 and Dec with no report recieved and no conclusions. Had repeat MRI and NCV/ EMG study. at [facility] and has appt. for ? LP again. 02/2015 MRI shows some worsening of disc bulges at L3-4 and L4-5 on the right with lateral spinal stenosis. 05/2015 MRI LS spine and hip were unremarkable 06/07/15 MRI pelvis normal. 02/19/16 MRI pelvis and hip negative. Code(s): M54.16 - Radiculopathy, lumbar region Category: Medical (2) Low back pain: Code(s): M54.5 - Low back pain Category: Medical Qualifiers: Chronicity: chronic Back pain laterality: left Sciatica presence: without sciatica Qualified Code(s): M54.50 - Low back pain, unspecified; G89.29 - Other chronic pain (3) Polyneuropathy: Code(s): G62.9 - Polyneuropathy, unspecified Category: Medical Plan NCV/EMG of lower extremities. Bilateral AFO braces Orders: Orders NE nerve conduction velocity Today G62.9 - Polyneuropathy, unspecified, M54.16 - Radiculopathy, lumbar region NE electromyogram (EMG) Today G62.9 - Polyneuropathy, unspecified, M54.16 - Radiculopathy, lumbar region Coding Level of Care Code New Pt Level 5 (45806) Diagnoses Lumbar radiculopathy M54.16 Chronic left-sided low back pain without sciatica M54.50; G89.29 Chronicity: chronic Back pain laterality: left Sciatica presence: without sciatica Polyneuropathy G62.9
--- OUTSIDE RECORDS SUMMARY | 2025-05-09 15:23 | XMS_ITS | Encounter Summary ---
Author Organization [facility] Address [address] [place] [phone] Phone Care Team Providers Care Assembly Supervisor Name Role Phone Jossue Pickett Primary Care Provider + Encounter Details Date Type Department Care Team (Late st Contact Info) Description 04/27/2019 Transcribe Orders [facility] Outpatient Care, Radio Flouroscopy [address] [place] [address] Karthikeyan Ferguson [address] [place] [address] [email or web address] Social History Tobacco Use Types Packs/Day Years [...] on filedocumented in this encounter Care Teams Assembly Supervisor Relationship Specialty Start Date End Date Jossue Pickett PA [address] [place] [phone] PCP - General 10/06/18 documented as of this encounter Additional Source Comments The information contained in this document represents components of the legal health record. It is not the complete legal health record.[facility]
--- OUTSIDE RECORDS SUMMARY | 2025-05-09 15:23 | XMS_ITS | Encounter Summary ---
Author Organization [employer] Address [address] [place] [address] Care Team Providers Care Nerve Specialist Name Role Phone Unavailable Primary Care Provider [...]
== END 2025-05-09 15:40 | disposition home or self-care (01) ==
LOC: HO.HSM 14:25
PROVIDERS: PCP Physician Assistant; Visit Provider Psychiatry & Neurology Neurology
DX: M54.16 Radiculopathy, lumbar region (principal); M54.50 Low back pain, unspecified; G89.29 Other chronic pain; G62.9 Polyneuropathy, unspecified
CPT/HCPCS: 99203

== ENCOUNTER → 2025-05-09 14:25 | Outpatient (BNVA) | payer MEDICARE, SELFPAY | PROVIDERS: PCP Physician Assistant; Visit Provider Psychiatry & Neurology Neurology | DX: M54.16 Radiculopathy, lumbar region (principal); M54.50 Low back pain, unspecified; G62.9 Polyneuropathy, unspecified; G89.29 Other chronic pain | CPT/HCPCS: 99202 ==

== ENCOUNTER 2025-05-16 10:55 | Outpatient (REF) | payer MEDICARE, SELFPAY ==
--- OUTSIDE RECORDS SUMMARY | 2025-05-16 11:49 | XMS_ITS | Encounter Summary ---
Author Organization [facility] Address [address] [place] [address] Phone Care Team Providers Care Chemical Research Technician Name Role Phone Jossue Pickett Primary Care Provider + Encounter Details Date Type Department Care Team (Late st Contact Info) Description 08/31/2019 Procedure Pass MRI, [facility] - [address], [address] [place] [address] Social History Tobacco Use Types Packs/Day Years [...] on filedocumented in this encounter Care Teams Chemical Research Technician Relationship Specialty Start Date End Date Jossue Pickett PA [address] [place] [address] PCP - General 10/06/18 documented as of this encounter Additional Source Comments The information contained in this document represents components of the legal health record. It is not the complete legal health record.[facility]
--- OUTSIDE RECORDS SUMMARY | 2025-05-16 11:49 | XMS_ITS | Encounter Summary ---
Author Organization [facility] Address [address] [facility] [address] [place] [address] Phone Care Team Providers Care Tester Operator Name Role Phone Jossue Pickett Primary Care Provider + Encounter Details Date Type Department Care Team (Late st Contact Info) Description 10/27/2018 Procedure Pass [facility] [address] [place] [address] Social History Tobacco Use Types Packs/Day Years Used Date Smoking Tobacco: Never Assessed Sex and Gender Information Value Date Recorded Sex Assigned at Not on file Legal Sex Male 2:02 PM EDT Gender Identity Not on file Sexual Orientation Not on file documented as of this encounter Functional Status documented as of this encounter Plan of Treatment Not on file documented as of this encounter Visit Diagnoses Not on filedocumented in this encounter Care Teams Tester Operator Relationship Specialty Start Date End Date Jossue Pickett PA [address] [place] [address] PCP - General 10/06/18 documented as of this encounter Additional Source Comments The information contained in this document represents components of the legal health record. It is not the complete legal health record.[facility]
--- OUTSIDE RECORDS SUMMARY | 2025-05-16 11:49 | XMS_ITS | Encounter Summary ---
Author Organization [facility] Address [address] [facility] [address] [place] [address] Phone Care Team Providers Care Station Agent Name Role Phone Jossue Pickett Primary Care Provider + Encounter Details Date Type Department Care Team (Late st Contact Info) Description 10/27/2018 Procedure Pass [facility] [address] [place] [address] Social History Tobacco Use Types Packs/Day Years [...] on filedocumented in this encounter Care Teams Station Agent Relationship Specialty Start Date End Date Jossue Pickett PA [address] [place] [address] PCP - General 10/06/18 documented as of this encounter Additional Source Comments The information contained in this document represents components of the legal health record. It is not the complete legal health record.[facility]
--- OUTSIDE RECORDS SUMMARY | 2025-05-16 11:49 | XMS_ITS | Encounter Summary ---
Author Organization [facility] Address [address] [place] [address] Phone Care Team Providers Care Mutual Fund Manager Name Role Phone Jossue Pickett Primary Care Provider + Encounter Details Date Type Department Care Team (Late st Contact Info) Description 04/27/2019 Transcribe Orders [facility], Radio Flouroscopy [address] [place] [address] Karthikeyan Ferguson [address] [place] [address] [email or web address] Social History Tobacco Use Types Packs/Day Years [...] on filedocumented in this encounter Care Teams Mutual Fund Manager Relationship Specialty Start Date End Date Jossue Pickett PA [address] [place] [address] PCP - General 10/06/18 documented as of this encounter Additional Source Comments The information contained in this document represents components of the legal health record. It is not the complete legal health record.[facility]
--- OUTSIDE RECORDS SUMMARY | 2025-05-16 11:50 | XMS_ITS | Encounter Summary ---
Author Organization [facility] Address [address] [facility] [address] [place] [address] Phone Care Team Providers Care Scaffolder Name Role Phone Jossue Pickett Primary Care Provider + Encounter Details Date Type Department Care Team (Late st Contact Info) Description 10/02/2020 Procedure Pass MRI, [facility] - [address], [address] [place] [id number] Social History Tobacco Use Types Packs/Day Years Used Date Smoking Tobacco: Never Smokeless Tobacco: Never Alcohol Use Standard Drinks/Week Comments Yes 0 (1 standard drink = 0.6 oz pur e alcohol) one very beer every few months Sex and Gender Information Value Date Recorded Sex Assigned at Not on file Legal Sex Male 2:02 PM EDT Gender Identity Not on file Sexual Orientation Not on file documented as of this encounter Plan of Treatment Not on file documented as of this encounter Visit Diagnoses Not on filedocumented in this encounter Care Teams Scaffolder Relationship Specialty Start Date End Date Jossue Pickett PA [address] [place] [address] PCP - General 10/06/18 documented as of this encounter Additional Source Comments The information contained in this document represents components of the legal health record. It is not the complete legal health record.[facility]
--- OUTSIDE RECORDS SUMMARY | 2025-05-16 11:50 | XMS_ITS | Clinical Summary ---
Author Organization [facility] Address [address] [facility] [address] [place] [address] Care Team Providers Care Packing Floor Worker Name Role Phone Unavailable Primary Care Provider [...] 1965 DTaP/Tdap/Td Vaccines (1 - Tdap) 1972 Pneumococcal Vaccine: 50+ Ye ars (1 of 1 - PCV) 2003 Zoster Vaccines (1 of 2) 2003 COVID-19 Vaccine ( - 2023-2 5 season) 2024 Influenza Vaccine (#1) 2025 RSV Patients and Pa tients Aged 60 [...] patient's age to complete this topic Meningococcal B Vaccine Aged Out No l onger eligible based on patient's age to complete [...]
--- OUTSIDE RECORDS SUMMARY | 2025-05-16 11:50 | XMS_ITS | Encounter Summary ---
Author Organization [facility] Address [address] [facility] [address] [place] [address] Care Team Providers Care Dock Pumper Name Role Phone Unavailable Primary Care Provider [...]
--- OUTSIDE RECORDS SUMMARY | 2025-05-16 11:50 | XMS_ITS | Encounter Summary ---
Author Organization [facility] Address [address] [facility] [address] [place] [address] Phone Care Team Providers Care Warehouse Picker Name Role Phone Jossue Pickett Primary Care Provider + Encounter Details Date Type Department Care Team (Late st Contact Info) Description 11/14/2018 Procedure Pass [facility] [address] [place] [address] Social History Tobacco Use Types Packs/Day Years [...] on filedocumented in this encounter Care Teams Warehouse Picker Relationship Specialty Start Date End Date Jossue Pickett PA [address] [place] [address] PCP - General 10/06/18 documented as of this encounter Additional Source Comments The information contained in this document represents components of the legal health record. It is not the complete legal health record.[facility]
--- OUTSIDE RECORDS SUMMARY | 2025-05-16 11:50 | XMS_ITS | Encounter Summary ---
Author Organization [facility] Address [address] [facility] [address] [place] [phone] Phone Care Team Providers Care Poultry Farmer Meat Name Role Phone Jossue Pickett Primary Care Provider + Encounter Details Date Type Department Care Team (Late st Contact Info) Description 10/27/2018 Procedure Pass [facility] [address] [place] [address] Social History Tobacco Use Types Packs/Day Years [...] on filedocumented in this encounter Care Teams Poultry Farmer Meat Relationship Specialty Start Date End Date Jossue Pickett PA [address] [place] [address] PCP - General 10/06/18 documented as of this encounter Additional Source Comments The information contained in this document represents components of the legal health record. It is not the complete legal health record.[facility]
--- OUTSIDE RECORDS SUMMARY | 2025-05-16 11:50 | XMS_ITS | Encounter Summary ---
Author Organization [facility] Address [address] [facility] [address] [place] [address] Phone Care Team Providers Care Patrol Deputy Sheriff Name Role Phone Jossue Pickett Primary Care Provider + Encounter Details Date Type Department Care Team (Late st Contact Info) Description 09/24/2020 Procedure Pass MRI, [facility] - [address], [address] [place] [id number] Social History Tobacco Use Types Packs/Day Years [...] on filedocumented in this encounter Care Teams Patrol Deputy Sheriff Relationship Specialty Start Date End Date Jossue Pickett PA [address] [place] [address] PCP - General 10/06/18 documented as of this encounter Additional Source Comments The information contained in this document represents components of the legal health record. It is not the complete legal health record.[facility]
--- OUTSIDE RECORDS SUMMARY | 2025-05-16 11:50 | XMS_ITS | Encounter Summary ---
Author Organization [facility] Address [address] [place] [address] Phone Care Team Providers Care Aircraft Pilot Name Role Phone Jossue Pickett Primary Care Provider + Encounter Details Date Type Department Care Team (Late st Contact Info) Description 04/02/2020 Procedure Pass [facility] [address] [place] [phone] Social History Tobacco Use Types Packs/Day Years [...] on filedocumented in this encounter Care Teams Aircraft Pilot Relationship Specialty Start Date End Date Jossue Pickett PA [address] [place] [address] PCP - General 10/06/18 documented as of this encounter Additional Source Comments The information contained in this document represents components of the legal health record. It is not the complete legal health record.[facility]
--- OUTSIDE RECORDS SUMMARY | 2025-05-16 11:50 | XMS_ITS | Clinical Summary ---
Author Organization [facility] Address [address] [place] [address] Phone Care Team Providers Care Tax Compliance Agent Name Role Phone Jossue Pickett Primary Care Provider + Allergies No known active allergies Medications traMADol (ULTRAM) 50 mg tablet Take by mouth daily as needed. Active calcium carbonate (CALCIUM 500 ORAL) Take by mouth. Active multivitamin per tablet 08/10/2014 Active latanoprost (XALATAN) 0.005 % ophthalmic solution INSTILL 1 DROP INTO EACH EYE AT BEDTIME 03/20/2020 Active senna (SENOKOT) 8.6 mg tablet Take 2 tablets by mouth nightly at bedtime as needed for constipation . 20 tablet 04/06/2020 Active HYDROmorphone (DILAUDID) 2 MG tablet Take 1-2 tablets (2-4 mg total) by mouth every 6 (six) hours as needed. Partial fill ok 42 tablet 04/15/2020 Active gabapentin (NEURONTIN) 300 MG capsule Take 1 capsule (300 mg total) by mouth 3 (three) times a day. 120 capsule 3 04/24/2020 Active Active Problems Problem Noted Date Diagnosed Date Back pain 04/02/2020 Weakness of both lower extremities 10/27/2018 Overview (10/30/2018): Images from the original note were not included. [facility] PLAN OF CARE Anomalous Vertebra? None, Lumbar MRI reviewed, T12 ribs Allergies that may influence a procedure: None Medications that may influence a procedure: None PMHx and PSHx that may influence a procedure: None ASA 1 - Normal health patient DIAGNOSTIC TESTING LABS: IMAGIN - Lumbar Spine MRI with contrast - Images independently viewed, agree with report. Salient report findings: There is enhancement along several cauda equina nerve roots at and below the L3-L4 level with associated undulation of these nerve roots on the previous MRI. This enhancement is nonspecific and could be the sequela of an infectious or inflammatory radiculitis. Given only mild central canal stenosis at L3-4, this is not felt to be secondary to a compressive radiculitis. The lack of discrete nodularity would make a neoplastic etiology less likely. CSF analysis would be helpful in further assessment. Previously seen intermediate signal within the thecal sac at the L3-4 level is likely attributable to CSF flow artifact, itself is not discretely enhancing. There is enhancement within the interspinous space at L3-4 that is likely degenerative/inflammatory. 03/02/18 - Lumbar MRI without contrast - Images independently viewed, agree with report. Salient report findings: At L3-L4, multifactorial degenerative changes result in similar mild to moderate central canal stenosis and mild to moderate bilateral neuroforaminal stenosis. Severe bilateral facet arthropathy at this level. At L4-L5, multifactorial degenerative changes result in stable moderate to severe proximal foraminal stenosis bilaterally with mass-effect on the exiting nerve roots. Stable undulation of the cauda equina nerve roots which demonstrate enhancement on prior postcontrast imaging. 05/07/16 - Thoracic MRI with and without contrast - Images not available, report reviewed. Salient report findings: Slightly prominent vascular structures along the anterior and posterior aspect of the spinal cord as described above which may be normal. 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 There is no evidence of cord edema or cord enlargement. Clinical correlation is recommended. Spinal angiogram could be considered if symptoms warrant. Kyphotic angulation at the T10 through T12 level. Mild disc bulges at T10-11 and T11-12 levels approaching close to the spinal cord and contributing to mild spinal stenosis. PRIOR TREATMENTS Physical Therapy: ongoing as of 10/2018 - helps for pain but not for weakness Medications tried: Motrin - previously helped, Tylenol - Some relief, Gabapentin - no relief, Tramadol - helps with pain Procedures: [facility] 03/2018 - L4-5 ILESI - a few days of less pain but no change in weakness IMPRESSIONS & RECOMMENDATIONS Bilateral lower extremity weakness involving L5 and S1 myotomes (EHL, gastrocnemius, hamstrings), with the left side being more pronounced than the right. Also with right greater than left gastrocnemius atrophy. Reflexes notable for hyperreflexia in bilateral patella and absent reflexes in bilateral Achilles. There is minimal tone in the left ankle and a dominant dorsiflexion tone in the right ankle. There is a left-sided upgoing plantar reflex. Balance is also impaired. Lumbar MRI is relatively unremarkable for degenerative changes, however there is some mild enhancement of the cauda equina as well as some tortuosity of the cauda equina nerve roots. It is unlikely his lower extremity weakness is due to degenerative changes of the lumbar spine. Patient's right-side low back pain may be secondary to biomechanical changes in the lumbar spine due to change in his normal gait due to inability to plantarflex at the ankles, he does have prominent z-joint arthropathy on his lumbar spine MRI. - We reviewed that interventional spine injections or surgical lumbar spine procedures for the degenerative changes that are present could potentially help with his low back pain but would not his weakness. - Prior evaluations through neurology at [facility] have not pinned down a definitive diagnosis. Thoracic MRIs have been completed however images are not available for me to review today. - Lumbar spine MRI from [facility] was reviewed with patient. We requested the patient obtain and send over the thoracic, cervical, brain and lumbar MRI CD's as well as the upcoming contrast-enhanced thoracic and lumbar spine MRI he will be having done next week from [facility] for us to review. - There was report of concern for slightly prominent vascular structures in the thoracic spine, possibly demonstrating early AV dural fistula. I think this may be a reasonable avenue to pursue, however I have not seen the images myself to confirm this. - Repeat EMG of the lower extremities may also be helpful. - I recommend that he undergoes evaluation through [facility] neurology to determine the next plan of care. I will assist in facilitating an earlier evaluation in any way that I can. - Discussed the pathophysiology, natural history and spectrum of treatment options. - All questions were answered. - Physical therapy with spine physical therapist - ongoing with some relief of low back pain, recommending continuing for now for pain. Garcia diagnostic test images: 02/2018 - Lumbar MRI L3-4 Family History Medical History Relation Comments Dementia Father Relation Status Comments Father Mother Alive Social History Tobacco Use Types Packs/Day Years Used Date Smoking Tobacco: Never Smokeless Tobacco: Never Alcohol Use Standard Drinks/Week Comments Yes 0 (1 standard drink = 0.6 oz pur e alcohol) one very beer every few months Education Answer Date Recorded Are you interested in more education? Not on adam e 01/15/2023 Are you concerned about learning? Not on file 01/15/2023 No 01/15/2023 No 01/15/2023 Digital Access Answer Date Recorded No 02/14/2023 No 02/14/2023 No 02/14/2023 Reliable internet access at home? Not on file 02/14/2023 Device with a working camera? Not on file Sex and Gender Information Value Date Recorded Sex Assigned at Not on file Legal Sex Male 2:02 PM EDT Gender Identity Not on file Sexual Orientation Not on file Last Filed Vital Signs Vital Sign Reading Time Taken Comments Blood Pressure 156/80 03/12/2022 2:05 PM EDT Pulse 80 03/12/2022 2:05 PM EDT Temperature 36.3 C (97.3 F) 03/12/2022 2:05 PM EDT Respiratory Rate 18 04/06/2020 7:23 AM EDT Oxygen Saturation 97% 03/12/2022 2:05 PM EDT Inhaled Oxygen Concentration - - Weight 79.4 kg (175 lb) 03/12/2022 2:05 PM EDT p t reported Height 165.1 cm (5' 5 ) 04/07/2021 3:44 PM EDT Body Mass Index 29.12 04/07/2021 3:44 PM EDT Plan of Treatment Health Maintenance Due Date Last Done Comments LIPID PANEL 1953 DEPRESSION SCREENING 1965 HEPATITIS C SCREENING 1971 COLOGUARD 1998 COLONOSCOPY 1998 COLORECTAL CANCER SCREENING 1998 FIT TEST 1998 FOBT 1998 SIGMOIDOSCOPY 1998 VIRTUAL COLONOSCOPY 1998 ZOSTER VACCINES (1 of 2) 2003 PNEUMOCOCCAL VACCINES (50+ years) (2 of 2 - PCV) 12/07/2020 12/08/2019 COVID-19 VACCINE (3 - 2023-2 5 season) 2024 01/08/2021, 12/18/2020 INFLUENZA VACCINE (#1) 2025 RSV VACCINE (1 - 1-dose 75+ series) 2028 Adult Td,Tdap Booster 08/09/2029 08/09/2019 MENINGOCOCCAL VACCINES (ACWY) Aged Out 10/21/2016 No longer eligible based on patient's age to complete this topic SMOKING STATUS SCREENING (On ce After 26 Yrs) Completed 03/12/2022 HEPATITIS A VACCINES Aged Out No long er eligible based on patient's age to complete this topic HIB VACCINES Aged Out No longer eligi ble based on patient's age to complete this topic MENINGOCOCCAL VACCINES (B) Aged Out N o longer eligible based on patient's age to complete this topic Medical Devices Not on file Insurance [facility] MEDICARE PART A & [place] & B Advance Directives For more information, please contact: [phone] (9AM - 5PM [facility], Wednesday-Wednesday) * Full Code (Presumed) (Latest Code Status on File) Date Activated Date Inactivated Comments 04/02/2020 6:11 PM Care Teams Tax Compliance Agent Relationship Specialty Start Date End Date Jossue Pickett PA [address] [place] [id number] PCP - General 10/06/18 Additional Source Comments The information contained in this document represents components of the legal health record. It is not the complete legal health record.[facility]
--- OUTSIDE RECORDS SUMMARY | 2025-05-16 11:50 | XMS_ITS | Encounter Summary ---
Author Organization [facility] Address [address] [facility] [address] [place] [phone] Phone Care Team Providers Care Order Dispatcher Name Role Phone Jossue Pickett Primary Care Provider + Encounter Details Date Type Department Care Team (Late st Contact Info) Description 11/14/2018 Procedure Pass [facility] [address] [place] [address] Social History Tobacco Use Types Packs/Day Years [...] on filedocumented in this encounter Care Teams Order Dispatcher Relationship Specialty Start Date End Date Jossue Pickett PA [address] [place] [address] PCP - General 10/06/18 documented as of this encounter Additional Source Comments The information contained in this document represents components of the legal health record. It is not the complete legal health record.[facility]
--- NOTE | 2025-05-16 13:02 | EMG_ITS ---
Chief complaint / brief history: This is a 70yr old man last seen in April 2016 with chronic intractable low back pain and gluteal pain. He has had multiple lumbar spine and pelvic imaging in the past revealing mild amount of foraminal stenosis. 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 He has been stable with no major improvement. In recent weeks to months, his balance is getting worse but no falls reported. Painful cramps are better with exercises and stretches. It is worsened by walking and getting up from sitting position. Laying down makes it somewhat better. It never goes away completely. Some days he feels decent in the morning. Feels exhausted easily. Climbing up hill makes the pain worse after walking 100 ft leg pain in buttocks. Balance is poor. Numbness in legs and Pins and needles in legs. In 2019 he had L3-4 bilateral laminectomy at [facility] but it did not lead to any improvement, in fact he feels he is worse since then. Reason for referral: polyneuropathy, radiculopathy Referred by: Pooja Quispe MD Procedure done: Nerve conduction study on bilateral lower extremities with EMG of the right leg cc: Jossue Pickett PA-C~ Medication List - Last Reconciled 05/09/25 by Rashida Quispe MD acetaminophen 1,000 mg (2 x 500 mg) PO Q6H PRN, atorvastatin 10 mg PO 3XW 90 days, gabapentin 600 mg PO TID 30 days, ibuprofen 800 mg PO Q8H PRN 30 days, latanoprost 0.005% 1 drp ophthalmic (eye) BEDTIME, lisinopril 5 mg PO DAILY 30 days, magnesium oxide 500 mg PO, BEDTIME 30 days, fpvovygd-bnj-qgwjg-vit K-lycop 400-20-370 mcg (One-A-Day Men's 50 Plus (with vitamin K)) 1 tab PO DAILY, pyridoxine (vitamin B6) 100 mg PO DAILY 30 days, tadalafil (Cialis) 5 mg PO RADHA, tamsulosin 0.4 mg PO DAILY 90 days Findings: Impression: 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 Absent H reflexes bilaterally. 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 Clinical correlation is suggested Please see detailed neurophysiological report MTDD
== END 2025-05-16 10:56 | disposition home or self-care (01) ==
LOC: HO.NEURO 10:55
PROVIDERS: PCP Physician Assistant; Visit Provider Psychiatry & Neurology Neurology
DX: G62.9 Polyneuropathy, unspecified (principal); M54.16 Radiculopathy, lumbar region
CPT/HCPCS: 95886; 95913

== ENCOUNTER → 2025-05-16 13:02 | Outpatient (BNV) | payer MEDICARE, SELFPAY | PROVIDERS: PCP Physician Assistant; Visit Provider Psychiatry & Neurology Neurology | DX: G62.89 Other specified polyneuropathies (principal) | CPT/HCPCS: 95886; 95913 ==

== ENCOUNTER 2025-07-09 12:55 | Outpatient (AMB) | payer MEDICARE, SELFPAY ==
--- NOTE | 2025-07-09 13:02 | MHC.OFFVIS ---
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 Required: No Accompanied by: Self / Same As Patient Allergies No Known Allergies (No Known Allergies*) Allergy (Verified 04/19/25 15:40) Medication List - Last Reconciled 07/09/25 by Syed Sullivan MD acetaminophen 1,000 mg (2 x 500 mg) PO Q6H PRN gabapentin 600 mg PO TID 30 days ibuprofen 800 mg PO Q8H PRN 30 days latanoprost 0.005% 1 drp ophthalmic (eye) BEDTIME lisinopril 5 mg PO DAILY 30 days magnesium oxide 500 mg PO BEDTIME 30 days svypuzou-vng-xwcbr-vit K-lycop 400-20-370 mcg (One-A-Day Men's 50 Plus (with vitamin K)) 1 tab PO DAILY pyridoxine (vitamin B6) 100 mg PO DAILY 30 days tadalafil (Cialis) 5 mg PO DAILY tamsulosin 0.4 mg PO DAILY 90 days HPI Comments Details: [age] year gentleman who is here for episode of elevated blood pressure and palpitations which happen 4-5 months ago. He said that he suddenly started feeling sick and went to the emergency department where his blood pressure was elevated into 180s. He said his blood pressure was control and eventually was discharged home. He was sent home it appears on lisinopril 5 mg daily. He has been doing fine since then. He walks and goes to gym off and on. While exercising he does not feel any symptoms currently. He has a left renal mass which was noticed to be enlarged on the back MRI done recently. He is getting ultrasound for further assessment. He is saying previously his cholesterol was elevated but he got off the medicine and was trying to diet. It appears he was on atorvastatin 10 mg daily. [facility] Medical History Lumbar radiculopathy Arthritis Depression Peripheral neuropathy Colon cancer screening Mass of skin of left thumb Hyperlipidemia Anxiety Low back pain Surgical History History of back surgery Family History Father No problems noted. Mother No problems noted. 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 Cognitive needs: Yes Hearing needs: No Vision needs: Yes Review of Systems Const Denies chills, Denies fatigue, Denies fever(s), Denies frequent falls, Denies weakness, Denies weight gain and Denies weight loss ENT Denies dizziness Card Denies chest pain, Denies leg edema, Denies lightheadedness, Denies palpitations, Denies dyspnea, Denies dyspnea on exertion and Denies orthopnea Resp Denies cough, Denies dyspnea and Denies dyspnea on exertion GI Denies bloating and Denies change in bowel habits Musc Denies muscle weakness, Denies numbness and Denies tingling Neuro Denies dizziness, Denies frequent falls, Denies numbness, Denies tingling and Denies weakness Endo Denies fatigue and Denies palpitations Physical Exam Vital Signs: Last Vital Signs Pulse 70 07/09/25 13:03 BP 120/70 07/09/25 13:03 BMI result Body Mass Index 29.8 GENERAL APPEARANCE: in no acute distress, pleasant. NECK: no carotid bruit, no jugular venous distention. SKIN: no suspicious lesions, warm and dry. HEART: no murmurs, regular rate and rhythm. LUNGS: clear to auscultation bilaterally. ABDOMEN: soft, nontender. EXTREMITIES: no edema. PERIPHERAL PULSES: equal. NEUROLOGIC: No gross deficits, AAO X 3 Office Procedures EKG Details: Normal sinus rhythm, normal axis, can not rule out inferior infarct, QTC 378 milliseconds. [id number], Complete Assessment & Plan Assessment & Plan (1) Hyperlipidemia: Code(s): E78.5 - Hyperlipidemia, unspecified Category: Medical Qualifiers: Hyperlipidemia type: mixed hyperlipidemia Qualified Code(s): E78.2 - Mixed hyperlipidemia (2) HTN (hypertension): Code(s): I10 - Essential (primary) hypertension Category: Medical Qualifiers: Hypertension type: primary hypertension Qualified Code(s): I10 - Essential (primary) hypertension Plan [age] year gentleman who is here for 1st office visit. Approximately 4-5 months ago he had an episode of elevated blood pressure when he felt quite uneasy and had palpitations. He went to the emergency department and blood pressure was controlled and was sent home on lisinopril. His blood pressure appears to be stable since then. He has no further complaints. I will arrange an echocardiogram for him to assess LV function. His EKGs showing inferior Q-waves and a previous inferior event can not be ruled out. We will do ECHO with contrast to assess wall motion abnormality. He is denying any anginal symptoms currently. He did have wall motion abnormality then I will consider stress testing. His last LDL cholesterol was 169 and total cholesterol is 237. He has total cholesterol should be less than 200 and LDL should be less than 100. I think he should be started on statins and I am starting him on rosuvastatin 20 mg daily. We will check lipid panel in 6-8 weeks. Thank you for allowing me to participate in the care of your patient. Please feel free to contact me if you have any questions. Orders: Orders Lipid Panel Today E78.2 - Mixed hyperlipidemia CA echo transthorac w con Today I10 - Essential (primary) hypertension Medications: New rosuvastatin 20 mg PO DAILY 90 tabs 3RF E78.2 - Mixed hyperlipidemia Coding Level of Care Code New Pt Level 4 (55129) Diagnoses Mixed hyperlipidemia E78.2 Hyperlipidemia type: mixed hyperlipidemia Primary hypertension I10 Hypertension type: primary hypertension CPT Codes EKG - CPT: 69453-[id number], Complete ([id number])
[2025-07-09 13:03] VITALS: BP 120/70; PULSE 70; BMI 29.8
== END 2025-07-09 13:23 | disposition home or self-care (01) ==
LOC: HO.HCS 12:56
PROVIDERS: PCP Physician Assistant; Visit Provider Internal Medicine Cardiovascular Disease
DX: E78.2 Mixed hyperlipidemia (principal); I10 Essential (primary) hypertension
CPT/HCPCS: 93010; 99204

== ENCOUNTER → 2025-07-09 12:55 | Outpatient (BNVA) | payer MEDICARE, SELFPAY | PROVIDERS: PCP Physician Assistant; Visit Provider Internal Medicine Cardiovascular Disease | DX: I10 Essential (primary) hypertension (principal); E78.2 Mixed hyperlipidemia; R94.31 Abnormal electrocardiogram [ECG] [EKG] | CPT/HCPCS: 93005; 99202 ==

== ENCOUNTER 2025-07-23 11:41 | Outpatient (AMB) | payer MEDICARE, SELFPAY ==
--- NOTE | 2025-07-23 11:42 | A.OFFVIS_ITS ---
Vital Signs 07/23/25 11:43 Height 5 ft 4 in Weight 176 lb BMI 30.2 BP 118/76 Blood Pressure Location Lt brachial Position Sitting Respiration 16 Pulse 81 Pulse Source Pulse Oximeter Pulse Oximetry (%) 96 Oxygen Delivery Method Room Air Intake Visit Reasons: Radiculopathy, lumbar region [employer] Internship Required: No Allergies No Known Allergies (No Known Allergies*) Allergy (Verified 07/23/25 11:45) Medication List - Last Reconciled 07/23/25 by Paula Mcclure LPN acetaminophen 1,000 mg (2 x 500 mg) PO Q6H PRN gabapentin 600 mg PO TID 30 days ibuprofen 800 mg PO Q8H PRN 30 days latanoprost 0.005% 1 drp ophthalmic (eye) BEDTIME lisinopril 5 mg PO DAILY 30 days magnesium oxide 500 mg PO BEDTIME 30 days psoaiiwk-hym-owsif-vit K-lycop 400-20-370 mcg (One-A-Day Men's 50 Plus (with vitamin K)) 1 tab PO DAILY pyridoxine (vitamin B6) 100 mg PO DAILY 30 days rosuvastatin 20 mg PO DAILY tamsulosin 0.4 mg PO DAILY 90 days HPI HPI Radiculopathy, lumbar region: Details: History of Present Illness The patient is a 70-year-old male presenting with chronic low back pain and lumbar radiculopathy management. The pain began in 2013 and has persisted despi te various interventions. In 2019, he underwent an L3-4 bilateral laminectomy at [facility], which did not alleviate his symptoms. He has been treated with IVIG and prednisone for idiopathic lumbar radiculo sheela, but these treatments were ineffective. The patient experiences painful cramps that improve with exercises and stretches but worsen with movement from a sitting position. Lying down provides partial relief, though the pain persists. An EMG in 2013 indicated mild diffuse loss in the lower extremities, consistent with chronic degenerative changes in the L4 to S1 muscles. He has participated i n multiple rounds of physical therapy and maintains a home exercise regimen. A recent MRI from April 2025 revealed multilevel degenerative disc disease and moderate spinal stenosis at L3-4. Pain Description - Onset: Pain started in 2013. - Quality: Persistent low back pain with radiculopathy. - Location: Low back and buttocks. - Exacerbating factors: Getting up and walking from a sitting position. - Relieving factors: Exercises, stretches, and lying down. - Interference: Painful cramps interfere with balance and mobility. Physical Exam - Appears afebrile. - Alert and oriented. - Mood and affect appropriate. - Follows and participates in conversation appropriately. - Respiratory effort is unlabored. - Able to transition from sit to stand unassisted. Results - EMG (2013): Mild diffuse and more horizontal loss in lower extremities bilaterally, consistent with bilateral chronic degenerative changes in L4 to S1 muscles. - MRI (April 2025): Multilevel degenerative disc disease and moderate spinal stenosis at L3-4. Pain Management - Affect: Pain impacts balance and mobility. - Analgesia: Previously treated with IVIG and prednisone without significant i mprovement. - Activities of Daily Living: Painful cramps affect daily activities, particularly mobility. [facility] Medical History Lumbar radiculopathy Arthritis Depression Peripheral neuropathy Colon cancer screening Mass of skin of left thumb Hyperlipidemia Anxiety Low back pain Surgical History History of back surgery Family History Father No problems noted. Mother No problems noted. 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 auto immune. [place] [facility] [place]: signal abnormality in the thecal sac??. facet arthropthy and bilateral L3/4 and 4/5 mod foraminal stenoses. NCV/EMG LE 05/01/14 MILD DIFFUSE MOTOR AXONAL LOSS IN THE LOWER EXTEMITY NERVES BILATERALLY. ABSENT RIGHT H-REFLEX CONSISTENT WITH A PROXIMAL ABNORMALITY IN THE RIGHT S1 REFLEX ARC. EMG OF BOTH LOWER EXTREMITIES (L2-S1 MUSCLES INCLUDING PARASPINAL) MUSCLES IS CONSISTENT WITH BILATERAL CHRONIC DENERVATIVE CHANGES IN THE L4-S1 INNERVATED MUSCLES CONSISTENT WITH BILATERAL LUMBOSACRAL POLYRADICULOPATHY. MRI shows some facet hypertrophy and lateral stenosis at L3-4 and L4-5 that does not expalin the significant deficits. Pelvic CT likewise does not have an adequate explanation. Spinal fluid has slight lymphocytic pleocytosis( 8 cells) with normal protein, glucose, and immunoelectrophoresis. Unlikely limited form of motor neuron disease. Appt. At [facility] on 08/10/14 and Aug with no report recieved and no conclusions. Had repeat MRI and NCV/ EMG study. at [facility] and has appt. for ? LP again. 02/2015 MRI shows some worsening of disc bulges at L3-4 and L4-5 on the right with lateral spinal stenosis. 05/2015 MRI LS spine and hip were unremarkable 06/07/15 MRI pelvis normal. 02/19/16 MRI pelvis and hip negative. 05/16/25 NCV/EMG: Impression: 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 Absent H reflexes bilaterally. EMG of the right L2 through S1 innervated muscles shows diffuse chronic moderately severe neuropathic changes These findings are consistent with polyradiculopathy in multiple lumbar roots involving primarily the ventral rami of the lumbar roots with relative sparing of the sensory nerves versus a motor neuropathy. Clinical correlation is suggested Please see detailed neurophysiological report Code(s): M54.16 - Radiculopathy, lumbar region Category: Medical Plan Plan Patient was informed and verbally consented to the use of an ambient scribe for clinic note documentation during this visit. 1. Chronic Low Back Right Leg Radiating Pain - Plan to proceed with right L3 transforaminal epidural steroid injection for spinal radicular pain. - Consider bilateral lumbar facet injections with platelet-rich plasma and infrared therapy. - Discussed neuromodulation options as a potential last resort. 2. Idiopathic Lumbar Polyradiculopathy - Continue with home exercise program to manage symptoms. - Monitor response to planned interventions. 3. Lumbar Spinal Stenosis - MRI shows moderate stenosis at L3-4; plan includes epidural steroid injection. 4. Degenerative Disc Disease - MRI indicates multilevel degenerative changes; manage with conservative measures and planned interventions. 5. Post-Laminectomy Syndrome - Consideration of neuromodulation options if conservative measures fail. 6. Lumbar Facet Hypertrophy - Plan includes bilateral lumbar facet injections with platelet-rich plasma. Discussion Notes We discussed the patient's chronic low back pain and lumbar radiculopathy, focusing on the multifactorial nature of his condition, including degenerative disc disease and lumbar spinal stenosis. Various treatment options were reviewed, such as right L3 transforaminal epidural steroid injection, bilateral lumbar facet injections with platelet-rich plasma, and neuromodulation as a last resort. The cost-effectiveness of these interventions was considered in light of the patient's insurance coverage, and all questions were addressed. Patient Instructions - Continue with home exercise program to manage symptoms. - Await scheduling for right L3 transforaminal epidural steroid injection. - Monitor symptoms and report any significant changes. Coding Level of Care Code New Pt Level 4 (19599) Diagnoses Lumbar disc disease with radiculopathy M51.16 Lumbar radiculopathy M54.16
[2025-07-23 11:43] VITALS: BP 118/76; PULSE 81; RESP 16; O2SAT 96; BMI 30.2
--- OUTSIDE RECORDS SUMMARY | 2025-07-23 14:51 | XMS_ITS | Encounter Summary ---
Author Organization [facility] Address [address] [place] [phone] Phone Care Team Providers Care Production Staff Worker Name Role Phone Jossue Pickett Primary Care Provider + Encounter Details Date Type Department Care Team (Late st Contact Info) Description 10/27/2018 Procedure Pass [facility] [address] [place] [address] Social History Tobacco Use Types Packs/Day Years [...] on filedocumented in this encounter Care Teams Production Staff Worker Relationship Specialty Start Date End Date Jossue Pickett PA [address] [place] [address] PCP - General 10/06/18 documented as of this encounter Additional Source Comments The information contained in this document represents components of the legal health record. It is not the complete legal health record.[facility]
--- OUTSIDE RECORDS SUMMARY | 2025-07-23 14:51 | XMS_ITS | Encounter Summary ---
Author Organization [facility] Address [address] [place] [address] Phone Care Team Providers Care Assembler Rubber Footwear Name Role Phone Jossue Pickett Primary Care Provider + Encounter Details Date Type Department Care Team (Late st Contact Info) Description 04/27/2019 Transcribe Orders [facility] Outpatient Care, Radio Flouroscopy [address] [place] [address] Karthikeyan Ferguson [address] [place] [address] [email or web address] Social History Tobacco Use Types Packs/Day Years [...] on filedocumented in this encounter Care Teams Assembler Rubber Footwear Relationship Specialty Start Date End Date Jossue Pickett PA [address] [place] [address] PCP - General 10/06/18 documented as of this encounter Additional Source Comments The information contained in this document represents components of the legal health record. It is not the complete legal health record.[facility]
--- OUTSIDE RECORDS SUMMARY | 2025-07-23 14:51 | XMS_ITS | Encounter Summary ---
Author Organization [facility] Address [address] [place] [address] Phone Care Team Providers Care Venereal Disease Control Head Name Role Phone Jossue Pickett Primary Care Provider + Encounter Details Date Type Department Care Team (Late st Contact Info) Description 10/27/2018 Procedure Pass [facility] [address] [place] [address] Social History Tobacco Use Types Packs/Day Years [...] on filedocumented in this encounter Care Teams Venereal Disease Control Head Relationship Specialty Start Date End Date Jossue Pickett PA [address] [place] [address] PCP - General 10/06/18 documented as of this encounter Additional Source Comments The information contained in this document represents components of the legal health record. It is not the complete legal health record.[facility]
--- OUTSIDE RECORDS SUMMARY | 2025-07-23 14:51 | XMS_ITS | Encounter Summary ---
Author Organization [facility] Address [address] [place] [address] Phone Care Team Providers Care Assistant Infant Toddler Teacher Name Role Phone Jossue Pickett Primary Care Provider + Encounter Details Date Type Department Care Team (Late st Contact Info) Description 08/31/2019 Procedure Pass MRI, [facility] - [address] [place] [address] Social History Tobacco Use Types Packs/Day Years [...] on filedocumented in this encounter Care Teams Assistant Infant Toddler Teacher Relationship Specialty Start Date End Date Jossue Pickett PA [address] [place] [address] PCP - General 10/06/18 documented as of this encounter Additional Source Comments The information contained in this document represents components of the legal health record. It is not the complete legal health record.[facility]
--- OUTSIDE RECORDS SUMMARY | 2025-07-23 14:51 | XMS_ITS | Encounter Summary ---
Author Organization [facility] Address [address] [place] [address] Phone Care Team Providers Care Photography Instructor Name Role Phone Jossue Pickett Primary Care Provider + Encounter Details Date Type Department Care Team (Late st Contact Info) Description 11/14/[address] [facility] [address] [place] [address] Social History Tobacco Use Types Packs/Day Years [...] on filedocumented in this encounter Care Teams Photography Instructor Relationship Specialty Start Date End Date Jossue Pickett PA [address] [place] [address] PCP - General 10/06/18 documented as of this encounter Additional Source Comments The information contained in this document represents components of the legal health record. It is not the complete legal health record.[facility]
--- OUTSIDE RECORDS SUMMARY | 2025-07-23 14:52 | XMS_ITS | Encounter Summary ---
Author Organization [facility] Address [address] [place] [address] Phone Care Team Providers Care Marketing Operations Specialist Name Role Phone Jossue Pickett Primary Care Provider + Encounter Details Date Type Department Care Team (Late st Contact Info) Description 10/27/2018 Procedure Pass [facility] [address] [place] [address] Social History Tobacco Use Types Packs/Day Years [...] on filedocumented in this encounter Care Teams Marketing Operations Specialist Relationship Specialty Start Date End Date Jossue Pickett PA [address] [place] [address] PCP - General 10/06/18 documented as of this encounter Additional Source Comments The information contained in this document represents components of the legal health record. It is not the complete legal health record.[facility]
--- OUTSIDE RECORDS SUMMARY | 2025-07-23 14:52 | XMS_ITS | Encounter Summary ---
Author Organization [facility] Address [address] [facility] [address] [place] [address] Phone Care Team Providers Care Bark Grinder Name Role Phone Jossue Pickett Primary Care Provider + Encounter Details Date Type Department Care Team (Late st Contact Info) Description 11/14/2018 Procedure Pass [facility] [address] [place] [address] Social History Tobacco Use Types Packs/Day Years [...] on filedocumented in this encounter Care Teams Bark Grinder Relationship Specialty Start Date End Date Jossue Pickett PA [address] [place] [address] PCP - General 10/06/18 documented as of this encounter Additional Source Comments The information contained in this document represents components of the legal health record. It is not the complete legal health record.[facility]
--- OUTSIDE RECORDS SUMMARY | 2025-07-23 14:53 | XMS_ITS | Encounter Summary ---
Author Organization [facility] Address [address] [place] [address] Phone Care Team Providers Care Wheelchair Van Driver Name Role Phone Jossue Pickett Primary Care Provider + Encounter Details Date Type Department Care Team (Late st Contact Info) Description 04/02/2020 Procedure Pass [facility] PERIOPERATIVE DEPT [address] [place] [address] Social History Tobacco Use Types Packs/Day Years [...] on filedocumented in this encounter Care Teams Wheelchair Van Driver Relationship Specialty Start Date End Date Jossue Pickett PA [address] [place] [address] PCP - General 10/06/18 documented as of this encounter Additional Source Comments The information contained in this document represents components of the legal health record. It is not the complete legal health record.[facility]
--- OUTSIDE RECORDS SUMMARY | 2025-07-23 14:53 | XMS_ITS | Encounter Summary ---
Author Organization [facility] Address [address] [facility] [address] [facility] [address] [place] [address] Phone Care Team Providers Care Manager Proposal Name Role Phone Jossue Pickett Primary Care Provider + Encounter Details Date Type Department Care Team (Late st Contact Info) Description 09/24/2020 Procedure Pass MRI, [facility] - [address], [address] [place] [id number] Social History Tobacco Use Types Packs/Day Years [...] on filedocumented in this encounter Care Teams Manager Proposal Relationship Specialty Start Date End Date Jossue Pickett PA [address] [place] [address] PCP - General 10/06/18 documented as of this encounter Additional Source Comments The information contained in this document represents components of the legal health record. It is not the complete legal health record.[facility]
--- OUTSIDE RECORDS SUMMARY | 2025-07-23 14:53 | XMS_ITS | Encounter Summary ---
Author Organization [employer] Address [address] [place] [address] Care Team Providers Care Endoscopy Rn Name Role Phone Unavailable Primary Care Provider [...]
--- OUTSIDE RECORDS SUMMARY | 2025-07-23 14:53 | XMS_ITS | Encounter Summary ---
Author Organization [facility] Address [address] [facility] [address] [place] [address] Phone Care Team Providers Care Service Learning Coordinator Name Role Phone Jossue Pickett Primary Care Provider + Encounter Details Date Type Department Care Team (Late st Contact Info) Description 10/02/2020 Procedure Pass MRI, [facility] Imaging - [address], [address] [place] [id number] Social History Tobacco Use Types Packs/Day Years [...] on filedocumented in this encounter Care Teams Service Learning Coordinator Relationship Specialty Start Date End Date Jossue Pickett PA [address] [place] [phone] PCP - General 10/06/18 documented as of this encounter Additional Source Comments The information contained in this document represents components of the legal health record. It is not the complete legal health record.[facility]
--- OUTSIDE RECORDS SUMMARY | 2025-07-23 14:53 | XMS_ITS | Clinical Summary ---
Author Organization [facility] [employer] Address [address] [facility] 7t [place] [address] Care Team Providers Care Print Designer Name Role Phone Unavailable Primary Care Provider [...] COVID-19 Vaccine ( - 2023-2 5 season) 2025 Influenza Vaccine (#1) 2025 RSV Patients and [...]
== END 2025-07-23 12:41 | disposition home or self-care (01) ==
LOC: HO.PMC 11:41
PROVIDERS: PCP Physician Assistant; Visit Provider Internal Medicine
DX: M51.16 Intervertebral disc disorders with radiculopathy, lumbar region (principal); M54.16 Radiculopathy, lumbar region
CPT/HCPCS: 99204

== ENCOUNTER → 2025-07-23 11:41 | Outpatient (BNVA) | payer MEDICARE, SELFPAY | PROVIDERS: PCP Physician Assistant; Visit Provider Internal Medicine | DX: M54.16 Radiculopathy, lumbar region (principal) | CPT/HCPCS: 99202 ==

== ENCOUNTER 2025-07-31 09:36 | Outpatient (AMB) | payer MEDICARE, SELFPAY ==
--- NOTE | 2025-07-31 09:40 | MHC.OFFVIS ---
Intake Visit Reasons: 3m Allergies No Known Allergies (No Known Allergies*) Allergy (Verified 07/23/25 11:45) Medication List - Last Reconciled 07/31/25 by Rashida Quispe MD acetaminophen 1,000 mg (2 x 500 mg) PO Q6H PRN gabapentin 600 mg orally 1 bid and 2 hs; ibuprofen 800 mg PO Q8H PRN 30 days latanoprost 0.005% 1 drp ophthalmic (eye) BEDTIME lisinopril 5 mg PO DAILY 30 days magnesium oxide 500 mg PO BEDTIME 30 days xgtcjpgm-[id number]-vit K-lycop 400-20-370 mcg (One-A-Day Men's 50 Plus (with vitamin K)) 1 tab PO DAILY pyridoxine (vitamin B6) 100 mg PO DAILY 30 days rosuvastatin 20 mg PO DAILY tamsulosin 0.4 mg PO DAILY 90 days HPI Comments Details: This is a 70yr old man last seen in April 2016 with chronic intractable low back pain and gluteal pain. He gets severe exacerbations of pains especially on walking lasting 15-20 minutes and has to rest. Some days he has almost no pain. He has had multiple lumbar spine and pelvic imaging in the past revealing mild amount of foraminal stenosis. 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 He has been stable with no major improvement. In recent weeks to months, his balance is getting worse but no falls reported. Painful cramps are better with exercises and stretches. It is worsened by walking and getting up from sitting postion. Laying down makes it somewhat better. It never goes away completely. Some days he feels decent in the morning. Feels exhausted easily. Climbing up hill makes the pain worse after walking 100 ft leg pain in buttocks. Balance is poor. Numbness in legs and Pins and needles in legs. In 2019 he had L3-4 bilateral laminectomy at [facility] but it did not lead to any improvement, in fact he feels he is worse since then. ? He has been on IVIG 40 g per day for 4 days 3-4 weekly since 05/25/14 for 2 yrs. He did not notice any significant change in his strength so far. If he walks on stairs he gets increased pain in the right posterior thigh and calf. Slight improvement in poor balance. ? 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 After that he would have intermittent low back pain which was not significant. Around September 2013 he started noticing pain in the right buttock area that is deep and radiates down the right leg. The pain would get worse if he was sitting for a while. He has also noted a sense of tightening of the right lower extremity muscles. The right foot tingles at times. He is no longer able to bear weight on the right foot alone and has to sit down to put on his pants. He is also having some balance problems. He has noticed increased frequency of cramping in his calves and toes particularly on the right, which occurs most nights and even during the day. ? He has no bladder or bowel control problems. There is no persistent numbness or loss of sensation. There is no definite back pain. ? He had a nerve conduction study done of the right leg back in December that suggested a chronic lumbar radiculopathy but no evidence of neuropathy. MRI of the lumbar spine in February showed some facet hypertrophy and mild lateral stenosis and diffuse disc bulges at the lower lumbar levels but no ken disc herniation. Pelvic CT was likewise unremarkable. NCV/EMG in april 2025 reported below. [facility] Medical History Lumbar radiculopathy Arthritis Depression Peripheral neuropathy Colon cancer screening Mass of skin of left thumb Hyperlipidemia Anxiety Low back pain Surgical History History of back surgery Family History Father No problems noted. Mother No problems noted. 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 Mental Status:?Normal attention, orientation, memory and affect.? Cranial Nerves:?Pupils are equal, round and reactive to light. External occular muscles are intact. Visual yan are full. Face is symmetrical. Facial sensations are normal. Tongue is midline. Palate elevates symmetrically. Shoulder shrugging is normal. Hearing to bedside conversation is normal.?.? Motor Examination:?Motor Examination:?Right calf and peroneal fasciculation. KJs 1 +on the left and 1+ on the right, R AJ 0+, L AJ 0+. Plantars are flexors. He has difficulty standing on toes on the left foot and weak on the right. Right EHL 4/5, left EHL 3/5, EDB R 4/5,EDBL 2-3/5, TA 5-/5 on left and 5/5 on right. Evertors are 4+/5on R and 4-/5 on left. Gastroc right 4+/5. Atrophy of right gastroc med. foot drop on left on walking on heels. Not able to get up on toes on either side . Distal blunting of vibration below the mid tarsal level bilaterally, left worse than right. Mild blunting of pinprick sensation in the toes bilaterally?.? Gait Exam:?Slow and cautious with a slapping gait on the left.?.? Cerebellar Signs:?Lxirws-hs-yith is ok.?.? Extrapyramidal System:?No tremor, rigidity with normal facial expressions.? Pronator Drift:?not present?.? Involuntary Movements:?No tremors seen?.? Speech:?Normal.? General Examination: ? GENERAL APPEARANCE:?normal,?in no acute distress.? SKIN:?no rashes,?no significant birthmarks.? HEART:?S1, S2 normal,?no murmurs.? LUNGS:?clear anteriorly and posteriorly.? EXTREMITIES:?no edema.? PSYCH:?alert, oriented,?cognitive function intact,?cooperative with exam.? Results Reviewed Results Reviewed: 05/16/25 NCV/EMG LE: Impression: 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 Absent H reflexes bilaterally. EMG of the right L2 through S1 innervated muscles shows diffuse chronic moderately severe neuropathic changes These findings are consistent with polyradiculopathy in multiple lumbar roots involving primarily the ventral rami of the lumbar roots with relative sparing of the sensory nerves versus a motor neuropathy. Clinical correlation is suggested Please see detailed neurophysiological report Assessment & Plan Assessment & Plan (1) Lumbar radiculopathy: Comment: Bilateral lumbar polyradiculopathy ( L4-S1 radiculopathy) ? auto immune. MRI LS at [facility] in February 2016: signal abnormality in the thecal sac??. facet arthropthy and bilateral L3/4 and 4/5 mod foraminal stenoses. NCV/EMG LE 05/01/14 MILD DIFFUSE MOTOR AXONAL LOSS IN THE LOWER EXTEMITY NERVES BILATERALLY. ABSENT RIGHT H-REFLEX CONSISTENT WITH A PROXIMAL ABNORMALITY IN THE RIGHT S1 REFLEX ARC. EMG OF BOTH LOWER EXTREMITIES (L2-S1 MUSCLES INCLUDING PARASPINAL) MUSCLES IS CONSISTENT WITH BILATERAL CHRONIC DENERVATIVE CHANGES IN THE L4-S1 INNERVATED MUSCLES CONSISTENT WITH BILATERAL LUMBOSACRAL POLYRADICULOPATHY. MRI shows some facet hypertrophy and lateral stenosis at L3-4 and L4-5 that does not expalin the significant deficits. Pelvic CT likewise does not have an adequate explanation. Spinal fluid has slight lymphocytic pleocytosis( 8 cells) with normal protein, glucose, and immunoelectrophoresis. Unlikely limited form of motor neuron disease. Appt. At [facility] on 08/10/14 and Dec with no report recieved and no conclusions. Had repeat MRI and NCV/ EMG study. at [facility] and has appt. for ? LP again. 02/2015 MRI shows some worsening of disc bulges at L3-4 and L4-5 on the right with lateral spinal stenosis. 05/2015 MRI LS spine and hip were unremarkable 06/07/15 MRI pelvis normal. 02/19/16 MRI pelvis and hip negative. 8/27/25 NCV/EMG: Impression: 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 Absent H reflexes bilaterally. EMG of the right L2 through S1 innervated muscles shows diffuse chronic moderately severe neuropathic changes These findings are consistent with polyradiculopathy in multiple lumbar roots involving primarily the ventral rami of the lumbar roots with relative sparing of the sensory nerves versus a motor neuropathy. Clinical correlation is suggested Please see detailed neurophysiological report Code(s): M54.16 - Radiculopathy, lumbar region Category: Medical (2) Low back pain: Code(s): M54.5 - Low back pain Category: Medical Qualifiers: Back pain laterality: left Chronicity: chronic Sciatica presence: without sciatica Qualified Code(s): M54.50 - Low back pain, unspecified; G89.29 - Other chronic pain (3) Polyneuropathy: Comment: increase Gabapentin to 2400mg a day. Pain clinic referral Code(s): G62.9 - Polyneuropathy, unspecified Category: Medical Plan NCV/EMG of lower extremities. Bilateral AFO braces Medications: Changed From gabapentin 600 mg PO TID 30 days 90 tabs 6RF G62.9 - Polyneuropathy, unspecified To gabapentin 600 mg orally 1 bid and 2 hs; G62.9 - Polyneuropathy, unspecified Coding Level of Care Code Est Pt Level 4 (68289) Diagnoses Lumbar radiculopathy M54.16 Chronic left-sided low back pain without sciatica M54.50; G89.29 Back pain laterality: left Chronicity: chronic Sciatica presence: without sciatica Polyneuropathy G62.9
--- OUTSIDE RECORDS SUMMARY | 2025-07-31 10:48 | XMS_ITS | Encounter Summary ---
Author Organization [facility] Address [address] [facility] [address] [place] [address] Phone Care Team Providers Care Corn Detasseler Machine Operator Name Role Phone Jossue Pickett Primary Care Provider + Encounter Details Date Type Department Care Team (Late st Contact Info) Description 11/14/2018 Procedure Pass [facility] Imaging [address] [place] [address] Social History Tobacco Use Types Packs/Day Years [...] on filedocumented in this encounter Care Teams Corn Detasseler Machine Operator Relationship Specialty Start Date End Date Jossue Pickett PA [address] [place] [address] PCP - General 10/06/18 documented as of this encounter Additional Source Comments The information contained in this document represents components of the legal health record. It is not the complete legal health record.[facility]
--- OUTSIDE RECORDS SUMMARY | 2025-07-31 10:48 | XMS_ITS | Encounter Summary ---
Author Organization [facility] Address [address] [facility] [address] [address] [place] [address] Phone Care Team Providers Care Shipping Receiving Clerk Name Role Phone Jossue Pickett Primary Care Provider + Encounter Details Date Type Department Care Team (Late st Contact Info) Description 08/31/2019 Procedure Pass MRI, [facility] - [address], [address] [place] [address] Social History Tobacco Use Types Packs/Day Years [...] on filedocumented in this encounter Care Teams Shipping Receiving Clerk Relationship Specialty Start Date End Date Jossue Pickett PA [address] [place] [address] PCP - General 10/06/18 documented as of this encounter Additional Source Comments The information contained in this document represents components of the legal health record. It is not the complete legal health record.[facility]
--- OUTSIDE RECORDS SUMMARY | 2025-07-31 10:48 | XMS_ITS | Encounter Summary ---
Author Organization [facility] Address [address] [facility] [address] [place] [address] Phone Care Team Providers Care Cutting Tool Sharpener Name Role Phone Jossue Pickett Primary Care Provider + Encounter Details Date Type Department Care Team (Late st Contact Info) Description 11/14/2018 Procedure Pass [facility] [address] [place] [address] Social History Tobacco Use Types Packs/Day Years [...] on filedocumented in this encounter Care Teams Cutting Tool Sharpener Relationship Specialty Start Date End Date Jossue Pickett PA [address] [place] [address] PCP - General 10/06/18 documented as of this encounter Additional Source Comments The information contained in this document represents components of the legal health record. It is not the complete legal health record.[facility]
--- OUTSIDE RECORDS SUMMARY | 2025-07-31 10:48 | XMS_ITS | Encounter Summary ---
Author Organization [facility] Address [address] [facility] [address] [place] [address] Phone Care Team Providers Care Woven Label Designer Name Role Phone Jossue Pickett Primary Care Provider + Encounter Details Date Type Department Care Team (Late st Contact Info) Description 10/27/2018 Procedure Pass [facility] Imaging [address] [place] [address] Social History Tobacco Use Types Packs/Day Years [...] on filedocumented in this encounter Care Teams Woven Label Designer Relationship Specialty Start Date End Date Jossue Pickett PA [address] [place] [address] PCP - General 10/06/18 documented as of this encounter Additional Source Comments The information contained in this document represents components of the legal health record. It is not the complete legal health record.[facility]
--- OUTSIDE RECORDS SUMMARY | 2025-07-31 10:48 | XMS_ITS | Encounter Summary ---
Author Organization [facility] Address [address] [facility] [address] [place] [address] Phone Care Team Providers Care Insole Toe Snipping Machine Operator Name Role Phone Jossue Pickett Primary Care Provider + Encounter Details Date Type Department Care Team (Late st Contact Info) Description 10/27/2018 Procedure Pass [facility] Imaging [address] [place] [address] Social History Tobacco Use Types Packs/Day Years [...] on filedocumented in this encounter Care Teams Insole Toe Snipping Machine Operator Relationship Specialty Start Date End Date Jossue Pickett PA [address] [place] [address] PCP - General 10/06/18 documented as of this encounter Additional Source Comments The information contained in this document represents components of the legal health record. It is not the complete legal health record.[facility]
--- OUTSIDE RECORDS SUMMARY | 2025-07-31 10:48 | XMS_ITS | Encounter Summary ---
Author Organization [facility] Address [address] [place] [address] Phone Care Team Providers Care Icing Coater Name Role Phone Jossue Pickett Primary Care Provider + Encounter Details Date Type Department Care Team (Late st Contact Info) Description 04/27/2019 Transcribe Orders [facility] Outpatient Care, Radio Flouroscopy [address] [place] [address] Karthikeyan Ferguson [address] [place] [address] [email or web address] Social History Tobacco Use Types Packs/Day Years [...] on filedocumented in this encounter Care Teams Icing Coater Relationship Specialty Start Date End Date Jossue Pickett PA [address] [place] [address] PCP - General 10/06/18 documented as of this encounter Additional Source Comments The information contained in this document represents components of the legal health record. It is not the complete legal health record.[facility]
--- OUTSIDE RECORDS SUMMARY | 2025-07-31 10:49 | XMS_ITS | Clinical Summary ---
Author Organization [facility] [employer] Address [address] [facility] 7t [place] [address] Care Team Providers Care Epic Kaleidoscope Analyst Name Role Phone Unavailable Primary Care Provider [...]
--- OUTSIDE RECORDS SUMMARY | 2025-07-31 10:49 | XMS_ITS | Encounter Summary ---
Author Organization [facility] Address [address] [facility] [address] [place] [address] Phone Care Team Providers Care Senior Care Specialist Name Role Phone Jossue Pickett Primary Care Provider + Encounter Details Date Type Department Care Team (Late st Contact Info) Description 09/24/2020 Procedure Pass MRI, [facility] Imaging - [address], [address] [place] [phone] Social History Tobacco Use Types Packs/Day Years [...] on filedocumented in this encounter Care Teams Senior Care Specialist Relationship Specialty Start Date End Date Jossue Pickett PA [address] [place] [address] PCP - General 10/06/18 documented as of this encounter Additional Source Comments The information contained in this document represents components of the legal health record. It is not the complete legal health record.[facility]
--- OUTSIDE RECORDS SUMMARY | 2025-07-31 10:49 | XMS_ITS | Encounter Summary ---
Author Organization [facility] Address [address] [facility] [address] [place] [address] Phone Care Team Providers Care Comfort Filler Name Role Phone Jossue Pickett Primary Care Provider + Encounter Details Date Type Department Care Team (Late st Contact Info) Description 10/02/2020 Procedure Pass MRI, [facility] Imaging - [address], [address] [place] [phone] Social History Tobacco Use Types Packs/Day Years [...] on filedocumented in this encounter Care Teams Comfort Filler Relationship Specialty Start Date End Date Jossue Pickett PA [address] [place] [address] PCP - General 10/06/18 documented as of this encounter Additional Source Comments The information contained in this document represents components of the legal health record. It is not the complete legal health record.[facility]
--- OUTSIDE RECORDS SUMMARY | 2025-07-31 10:49 | XMS_ITS | Encounter Summary ---
Author Organization [employer] Address [address] [facility] 7t [place] [address] Care Team Providers Care Deliverer Pharmacy Name Role Phone Unavailable Primary Care Provider [...]
--- OUTSIDE RECORDS SUMMARY | 2025-07-31 10:49 | XMS_ITS | Encounter Summary ---
Author Organization [facility] Address [address] [facility] [address] [place] [address] Phone Care Team Providers Care Commercial Loan Analyst Name Role Phone Jossue Pickett Primary Care Provider + Encounter Details Date Type Department Care Team (Late st Contact Info) Description 10/27/2018 Procedure Pass [facility] [address] [place] [address] Social History Tobacco Use Types Packs/Day Years [...] on filedocumented in this encounter Care Teams Commercial Loan Analyst Relationship Specialty Start Date End Date Jossue Pickett PA [address] [place] [address] PCP - General 10/06/18 documented as of this encounter Additional Source Comments The information contained in this document represents components of the legal health record. It is not the complete legal health record.[facility]
--- OUTSIDE RECORDS SUMMARY | 2025-07-31 10:49 | XMS_ITS | Encounter Summary ---
Author Organization [facility] Address [address] [place] [address] Phone Care Team Providers Care Plan Consultant Name Role Phone Jossue Pickett Primary Care Provider + Encounter Details Date Type Department Care Team (Late st Contact Info) Description 04/02/2020 Procedure Pass [facility] PERIOPERATIVE DEPT [address] [place] [phone] Social History Tobacco Use Types Packs/Day Years [...] on filedocumented in this encounter Care Teams Plan Consultant Relationship Specialty Start Date End Date Jossue Pickett PA [address] [place] [address] PCP - General 10/06/18 documented as of this encounter Additional Source Comments The information contained in this document represents components of the legal health record. It is not the complete legal health record.[facility]
--- OUTSIDE RECORDS SUMMARY | 2025-07-31 10:49 | XMS_ITS | Clinical Summary ---
Author Organization [facility] Address [address] [place] [address] Phone Care Team Providers Care Aged Or Disabled Care Worker Name Role Phone Jossue Pickett Primary [...] relief, Tramadol - helps with pain Procedures: [facility] 03/2018 - L4-5 ILESI - a [...] weakness. - Prior evaluations through neurology at [facility] have not pinned down a definitive diagnosis. Thoracic MRIs have been completed however images are not available for me to review today. - Lumbar spine MRI from [facility] was reviewed with patient. We requested the patient obtain and send over the thoracic, cervical, brain and lumbar MRI CD's as well as the upcoming contrast-enhanced thoracic and lumbar spine MRI he will be having done next week from [facility] for us to review. - There was [...] I recommend that he undergoes evaluation through [facility] neurology to determine the next plan of [...] (2 of 2 - PCV) 12/07/2020 12/08/2019 INFLUENZA VACCINE (#1) 2025 COVID-19 VACCINE (3 - 2024-2 6 season) 2025 01/08/2021, 12/18/2020 RSV VACCINE (1 - 1-dose 75+ series) [...] patient's age to complete this topic IPV VACCINES Aged Out No longer eligi ble based on patient's age to complete this topic MENINGOCOCCAL VACCINES (B) Aged Out N o longer eligible based on patient's age to complete this topic Medical Devices Not on file Insurance [facility] MEDICARE PART A & [place] MEDICARE PART A & B [address] [place], [place] [address]HEALTH MEDICARE PART A & [place] MED[place]ARE [place] & [place] B Advance Directives For more information, please contact: [phone] (9AM - 5PM [facility], Wednesday-Wednesday) * Full Code (Presumed) (Latest Code Status on File) Date Activated Date Inactivated Comments 04/02/2020 6:11 PM Care Teams Aged Or Disabled Care Worker Relationship Specialty [place] [address] [place] [address] PCP - General 10/06/18 Additional Source Comments The information contained in this document represents components of the legal health record. It is not the complete legal health record.[facility]
== END 2025-07-31 10:02 | disposition home or self-care (01) ==
LOC: HO.HSM 09:37
PROVIDERS: PCP Physician Assistant; Visit Provider Psychiatry & Neurology Neurology
DX: M54.16 Radiculopathy, lumbar region (principal); M54.50 Low back pain, unspecified; G89.29 Other chronic pain; G62.9 Polyneuropathy, unspecified
CPT/HCPCS: 99214

== ENCOUNTER → 2025-07-31 09:36 | Outpatient (BNVA) | payer MEDICARE, SELFPAY | PROVIDERS: PCP Physician Assistant; Visit Provider Psychiatry & Neurology Neurology | DX: M54.16 Radiculopathy, lumbar region (principal); M54.50 Low back pain, unspecified; G62.9 Polyneuropathy, unspecified; G89.29 Other chronic pain | CPT/HCPCS: 99212 ==

== ENCOUNTER → 2025-08-20 08:57 | Outpatient (REF) | payer MEDICARE, SELFPAY ==
--- NOTE | 2025-08-20 09:00 | CA_ITS ---
Transthoracic Echocardiogram Patient (Last, First, Middle): Jeffy Liz, Gender: M Date of : 1955 Age: 70 Procedure Date: 08/20/2025 Procedure Type: Transthoracic Echocardiogram Location: OP Height: 162.56 cm Weight: 79.83 kg BSA: 1.85 m2 Heart Rate: 78 bpm BP: 118 / 76 mmHg Crystalizer: RONIT Referring MD: Syed Sullivan MD Assurance Analyst: Syed Sullivan MD Symptoms: I10 - Essential (primary) hypertension Study Quality: Adequate ECG Rhythm: Sinus Conclusions: - The left ventricular systolic function is normal. The calculated ejection fraction is 63% by biplane method. - Focal hypertrophy of the basal septum. - No obvious valvular pathology seen on this study. Findings Left Ventricle Normal left ventricular cavity size. The left ventricular systolic function is normal. The calculated ejection fraction is 63% by biplane method. There is no evidence of regional wall motion abnormalities. Evidence suggests grade I (mild) diastolic dysfunction. Focal hypertrophy of the basal septum. Right Ventricle Normal right ventricular cavity size and systolic function. Atria Both atria are normal in size. Aortic Valve There is mild calcification of the aortic valve. There is no aortic valve stenosis. There is trace (trivial) aortic valve regurgitation. Mitral Valve The mitral valve appears normal. There is no mitral valve regurgitation. There is no mitral valve stenosis. Pulmonic Valve The pulmonic valve is likely normal. Tricuspid Valve Normal tricuspid valve structure. There is trace tricuspid valve regurgitation. There is no evidence of pulmonary hypertension. Great Vessels The asc aorta is normal in size. Venous The inferior vena cava is normal in size and collapses greater than 50% with inspiration. Pericardium/Pleural There is no evidence of pericardial effusion. Prior Study Comparison No prior study available for comparison. Recommendations, Care & Conclusions No obvious valvular pathology seen on this study. Measurements 2D Linear Measurements IVSd: 1.05 0.6-0.9/0.6-1.0 cm LVIDd: 4.36 3.9-5.3/4.2-5.9 cm LVIDd Index: 2.36 2.4-3.2/2.2-3.1 cm/m2 LVIDs: 2.47 2.0-3.6 cm LVPWd: 0.78 0.7-1.1 cm LA Diam: 3.80 2.7-3.8/3.0-4.0 cm LAIDs Index: 2.05 1.5-2.3 cm/m2 LV Mass: 160.11 67-162/88-224 g LV Mass Index: 86.54 43-95/49-115 g/m2 LVOT Diam: 2.10 3.0+(-)1.3 cm 2D Systolic Function EF 4C: 66.70 >55% EF 2C: 56.30 >55% EF BiP: 62.80 >55% Mitral Valve MV Pk E: 1.01 MV PK A: 1.20 MV Decel Time: 227.00 E/A: 0.80 E'Lateral: 5.66 E'Medial: 5.33 E/E' Med: 18.90 E/E' Lat: 17.80 PHT: 66.00 MVA PHT: 3.33 Decel [place]: 4.46 Aortic Valve AoV Pk Cj: 1.22 AoV Pk Grad: 6.00 ESEQUIEL: 2.40 LVOT LVOT Pk Cj: 0.89 LVOT Mn Cj: 0.63 LVOT VTI: 0.20 LVOT Pk Grad: 3.00 LVOT Mn Grad: 2.00 LVOT Diam: 2.10 LVOT Area: 3.46 Diastolic Function MV Pk E: 1.01 MV Pk A: 1.20 E/A: 0.80 E'Medial: 5.33 E/E' Med: 18.90 E' Laterial: 5.66 E/E' Lat: 17.80 Right Ventricle TAPSE (mm): 19.10 TVS' Cj: 10.80 Tricuspid Valve TR Pk Cj: 1.91 TR Pk Grad: 15.00 RA Press: 3.00 RVSP: 18.00 Great Vessels Aorta Sinus of Valsalva: 3.20 2.0-3.5 cm Ao Asc: 3.00 2.1-3.4 cm Pulmonary Veins Pulm Vein S/D 1.10 Pulmonary Valve PV Pk Cj: 1.03 Peak PV Grad: 4.00 Updated in Other Vendor System with Status of Final Derian Robbins MD electronically signed on 08/23/2025 12:00:16 PM with status of Final
--- OUTSIDE RECORDS SUMMARY | 2025-08-20 10:15 | XMS_ITS | Encounter Summary ---
Author Organization [facility] Address [address] [place] [address] Phone Care Team Providers Care Elementary Special Education Teacher Name Role Phone Jossue Pickett Primary Care Provider + Encounter Details Date Type Department Care Team (Late st Contact Info) Description 04/27/2019 Transcribe Orders [facility] Outpatient Care, Radio Flouroscopy [address] [place] [address] Karthikeyan Ferguson [address] [place] [address] [email or web address] Social History Tobacco Use Types [...] on filedocumented in this encounter Care Teams Elementary Special Education Teacher Relationship Specialty Start Date End Date Jossue Pickett PA [address] [place] [address] PCP - General 10/06/18 documented as of this encounter Additional Source Comments The information contained in this document represents components of the legal health record. It is not the complete legal health record.[facility]
--- OUTSIDE RECORDS SUMMARY | 2025-08-20 10:16 | XMS_ITS | Clinical Summary ---
Author Organization [facility] Address [address] [place] [address] Phone Care Team Providers Care Vegetable Buncher Name Role Phone Jossue Pickett Primary Care [...] relief, Tramadol - helps with pain Procedures: [facility] 03/2018 - L4-5 ILESI - a [...] weakness. - Prior evaluations through neurology at [facility] have not pinned down a definitive diagnosis. Thoracic MRIs have been completed however images are not available for me to review today. - Lumbar spine MRI from [facility] was reviewed with patient. We requested the patient obtain and send over the thoracic, cervical, brain and lumbar MRI CD's as well as the upcoming contrast-enhanced thoracic and lumbar spine MRI he will be having done next week from [facility] for us to review. - There [...] I recommend that he undergoes evaluation through [facility] neurology to determine the next plan of [...] topic Medical Devices Not on file Insurance [facility] MEDICARE PART A & B [place] MEDICARE PART A & B [address] [place], [place] [address]HEALTH MEDICARE PART A & [place] A & B MED[place]ARE [place] & [place] A & B Advance Directives For more information, please contact: [phone] (9AM - 5PM [facility], Wednesday-Wednesday) * Full Code (Presumed) (Latest Code Status on File) Date Activated Date Inactivated Comments 04/02/2020 6:11 PM Care Teams Vegetable Buncher Relationship Specialty Start [place] [address] [place] [address] PCP - General 10/06/18 Additional Source Comments The information contained in this document represents components of the legal health record. It is not the complete legal health record.[facility]
--- OUTSIDE RECORDS SUMMARY | 2025-08-20 10:16 | XMS_ITS | Encounter Summary ---
Author Organization [facility] Address [address] [facility] [address] [place] [address] Phone Care Team Providers Care Public Administration Professor Name Role Phone Jossue Pickett Primary Care Provider + Encounter Details Date Type Department Care Team (Late st Contact Info) Description 10/27/2018 Procedure Pass [facility] [address] [place] [address] Social History Tobacco Use Types Packs/Day Years [...] on filedocumented in this encounter Care Teams Public Administration Professor Relationship Specialty Start Date End Date Jossue Pickett PA [address] [place] [address] PCP - General 10/06/18 documented as of this encounter Additional Source Comments The information contained in this document represents components of the legal health record. It is not the complete legal health record.[facility]
--- OUTSIDE RECORDS SUMMARY | 2025-08-20 10:16 | XMS_ITS | Encounter Summary ---
Author Organization [facility] Address [address] [facility] [address] [place] [address] Phone Care Team Providers Care Machine Carton Marker Name Role Phone Jossue Pickett Primary Care Provider + Encounter Details Date Type Department Care Team (Late st Contact Info) Description 11/14/2018 Procedure Pass [facility] [address] [place] [address] Social History Tobacco Use Types Packs/Day Years [...] on filedocumented in this encounter Care Teams Machine Carton Marker Relationship Specialty Start Date End Date Jossue Pickett PA [address] [place] [address] PCP - General 10/06/18 documented as of this encounter Additional Source Comments The information contained in this document represents components of the legal health record. It is not the complete legal health record.[facility]
--- OUTSIDE RECORDS SUMMARY | 2025-08-20 10:16 | XMS_ITS | Encounter Summary ---
Author Organization [facility] Address [address] [facility] [address] [place] [address] Phone Care Team Providers Care Library Media Assistant Name Role Phone Jossue Pickett Primary Care Provider + Encounter Details Date Type Department Care Team (Late st Contact Info) Description 11/14/2018 Procedure Pass [facility] [address] [place] [address] Social History Tobacco Use Types Packs/Day Years [...] on filedocumented in this encounter Care Teams Library Media Assistant Relationship Specialty Start Date End Date Jossue Pickett PA [address] [place] [address] PCP - General 10/06/18 documented as of this encounter Additional Source Comments The information contained in this document represents components of the legal health record. It is not the complete legal health record.[facility]
--- OUTSIDE RECORDS SUMMARY | 2025-08-20 10:16 | XMS_ITS | Encounter Summary ---
Author Organization [facility] Address [address] [facility] [address] [place] [address] Phone Care Team Providers Care Instructional Assistant Name Role Phone Jossue Pickett Primary Care Provider + Encounter Details Date Type Department Care Team (Late st Contact Info) Description 09/24/2020 Procedure Pass MRI, [facility] Imaging - [address], [address] [place] [phone] Social History Tobacco Use Types Packs/Day Years [...] on filedocumented in this encounter Care Teams Instructional Assistant Relationship Specialty Start Date End Date Jossue Pickett PA [address] [place] [address] PCP - General 10/06/18 documented as of this encounter Additional Source Comments The information contained in this document represents components of the legal health record. It is not the complete legal health record.[facility]
--- OUTSIDE RECORDS SUMMARY | 2025-08-20 10:16 | XMS_ITS | Encounter Summary ---
Author Organization [facility] Address [address] [facility] [address] [place] [address] Phone Care Team Providers Care Wall To Wall Carpet Installer Name Role Phone Jossue Pickett Primary Care Provider + Encounter Details Date Type Department Care Team (Late st Contact Info) Description 10/27/2018 Procedure Pass [facility] [address] [place] [address] Social History Tobacco Use Types Packs/Day Years [...] on filedocumented in this encounter Care Teams Wall To Wall Carpet Installer Relationship Specialty Start Date End Date Jossue Pickett PA [address] [place] [address] PCP - General 10/06/18 documented as of this encounter Additional Source Comments The information contained in this document represents components of the legal health record. It is not the complete legal health record.[facility]
--- OUTSIDE RECORDS SUMMARY | 2025-08-20 10:16 | XMS_ITS | Encounter Summary ---
Author Organization [facility] Address [address] [facility] [address] [place] [address] Phone Care Team Providers Care Shank Cutter Name Role Phone Jossue Pickett Primary Care Provider + Encounter Details Date Type Department Care Team (Late st Contact Info) Description 10/02/2020 Procedure Pass MRI, [facility] Imaging - [address], [address] [place] [phone] Social History Tobacco Use Types Packs/Day Years [...] on filedocumented in this encounter Care Teams Shank Cutter Relationship Specialty Start Date End Date Jossue Pickett PA [address] [place] [address] PCP - General 10/06/18 documented as of this encounter Additional Source Comments The information contained in this document represents components of the legal health record. It is not the complete legal health record.[facility]
--- OUTSIDE RECORDS SUMMARY | 2025-08-20 10:16 | XMS_ITS | Clinical Summary ---
Author Organization [facility] Address [address] [facility] 7[address] [place] [address] Care Team Providers Care Ribbon Lapper Tender Name Role Phone Unavailable Primary Care Provider [...] of 2) 2003 COVID-19 Vaccine ( - 2024-2 6 season) 2025 Influenza Vaccine (#1) 2025 RSV [...]
--- OUTSIDE RECORDS SUMMARY | 2025-08-20 10:16 | XMS_ITS | Encounter Summary ---
Author Organization [facility] Address [address] [place] [address] Phone Care Team Providers Care Gaggerman Name Role Phone Jossue Pickett Primary Care Provider + Encounter Details Date Type Department Care Team (Late st Contact Info) Description 04/02/2020 Procedure Pass [facility] [address] [place] [phone] Social History Tobacco Use Types Packs/Day Years [...] on filedocumented in this encounter Care Teams Gaggerman Relationship Specialty Start Date End Date Jossue Pickett PA [address] [place] [address] PCP - General 10/06/18 documented as of this encounter Additional Source Comments The information contained in this document represents components of the legal health record. It is not the complete legal health record.[facility]
--- OUTSIDE RECORDS SUMMARY | 2025-08-20 10:16 | XMS_ITS | Encounter Summary ---
Author Organization [facility] Address [address] [facility] [address] [place] [address] Phone Care Team Providers Care Lodging Facilities Attendant Name Role Phone Jossue Pickett Primary Care Provider + Encounter Details Date Type Department Care Team (Late st Contact Info) Description 10/27/2018 Procedure Pass [facility] [address] [place] [address] Social History Tobacco Use Types Packs/Day Years [...] on filedocumented in this encounter Care Teams Lodging Facilities Attendant Relationship Specialty Start Date End Date Jossue Pickett PA [address] [place] [address] PCP - General 10/06/18 documented as of this encounter Additional Source Comments The information contained in this document represents components of the legal health record. It is not the complete legal health record.[facility]
--- OUTSIDE RECORDS SUMMARY | 2025-08-20 10:16 | XMS_ITS | Encounter Summary ---
Author Organization [facility] Address [address] [place] [address] Phone Care Team Providers Care Resident Physician In Radiology Name Role Phone Jossue Pickett Primary Care Provider + Encounter Details Date Type Department Care Team (Late st Contact Info) Description 08/31/2019 Procedure Pass MRI, [facility] - [address], [address] [place] [address] Social History Tobacco Use Types Packs/Day Years [...] on filedocumented in this encounter Care Teams Resident Physician In Radiology Relationship Specialty Start Date End Date Jossue Pickett PA [address] [place] [address] PCP - General 10/06/18 documented as of this encounter Additional Source Comments The information contained in this document represents components of the legal health record. It is not the complete legal health record.[facility]
--- OUTSIDE RECORDS SUMMARY | 2025-08-20 10:16 | XMS_ITS | Encounter Summary ---
Author Organization [facility] Address [address] [facility] 7 [place] [address] Care Team Providers Care Marketing Development Representative Name Role Phone Unavailable Primary Care Provider [...]
== END ==
LOC: HO.CARD 08:57
PROVIDERS: PCP Physician Assistant; Visit Provider Internal Medicine Cardiovascular Disease
DX: I10 Essential (primary) hypertension (principal)
CPT/HCPCS: 93306

== ENCOUNTER → 2025-08-20 09:00 | Outpatient (BNV) | payer MEDICARE, SELFPAY | PROVIDERS: PCP Physician Assistant; Visit Provider Internal Medicine | DX: I42.2 Other hypertrophic cardiomyopathy (principal) | CPT/HCPCS: 93306 ==

== ENCOUNTER 2025-09-11 09:31 | Outpatient (AMB) | payer MEDICARE, SELFPAY ==
--- NOTE | 2025-09-11 09:45 | MHC.PC.OV ---
Vital Signs 09/11/25 09:46 Height 5 ft 4 in Weight 173 lb 6 oz BMI 29.8 BP 126/62 Blood Pressure Location Lt brachial Position Sitting Pulse 86 Pulse Source Pulse Oximeter Temp 97.3 F Temp Source Temporal Artery Scan Pulse Oximetry (%) 96 Oxygen Delivery Method Room Air Intake Visit Reasons: 6 mo f/u HLD Intake Note: Patient is here to follow up on HLD. Consolidator Required: No Marketing Services Specialist: Not Required per policy Accompanied by: Self / Same As Patient Allergies No Known Allergies (No Known Allergies*) Allergy (Verified 09/11/25 10:19) Medication List - Last Reconciled 09/11/25 by Jossue Pickett PA-C acetaminophen 1,000 mg (2 x 500 mg) PO Q6H PRN gabapentin 600 mg orally 1 bid and 2 hs; ibuprofen 800 mg PO Q8H PRN 30 days latanoprost 0.005% 1 drp ophthalmic (eye) BEDTIME lisinopril 5 mg PO DAILY 30 days magnesium oxide 500 mg PO BEDTIME 30 days ezmuyqch-bwo-rjetl-vit K-lycop 400-20-370 mcg (One-A-Day Men's 50 Plus (with vitamin K)) 1 tab PO DAILY pyridoxine (vitamin B6) 100 mg PO DAILY 30 days rosuvastatin 20 mg PO DAILY tamsulosin 0.4 mg PO DAILY 90 days Tobacco use date assessed: 09/11/25 Fall risk assessment: No Falls in past year Last assessed Fall Risk: 09/11/25 Dental Screening Dental Screen Date: 04/19/25 HPI 6 mo f/u HLD HPI Details Patient is a 70 year-old male here today for follow-up visit? Patient has a past medical history significant for hyperlipidemia, chronic lower extremity weakness and lumbar spine pain. Continues to have lower extremity weakness/pain and balance issues particularly when standing or walking for long periods of time. He is requesting another referral to a spinal specialist Hyperlipidemia:? Most recent lipid panel continues to show high cholesterol and LDL. Has not been consistently taking his cholesterol medication and promises to start doing so. 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 Has pending lipid panel .. Lumbar disc disease, lower extremity weakness:? Patient is followed by neurologist in [place].? 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 He uses Advil most of the time for his pain.? Does use tramadol on a limited p.r.n. basis when pain skills are 7 in 10. He continues to have weakness in his lower extremities though he reports he is able to manage. --> Underwent EMG of his lower extremities in the findings were consistent with a predominantly L5-S1 bilateral chronic radiculopathy. The chronicity is supported by the presence of a complex repetitive discharges in the left gastrocnemius He reports he has noted worsening balance as he a often feels that he is going to fall forward.? Has done physical therapy though has not been too effective on his balance and pain reduction. Of note--> Did have an MRI of his lumbar spine in May 2023 which did show status post laminectomy at L3-L4. Also did show concentric disc bulging at this level moderate to severe bilateral neural foraminal stenosis progress from previous imaging. Most of his complaint is his right lower extremity pain and his balance issue. Has followed up with both Neurology and pain management in his considering injections again in his lower back. We did discuss possibly trying an AFO for his right lower extremity to help his ankle weakness [facility] Medical History Lumbar radiculopathy Arthritis Depression Peripheral neuropathy Colon cancer screening Mass of skin of left thumb Hyperlipidemia Anxiety Low back pain Surgical History History of back surgery Family History Father No problems noted. Mother No problems noted. 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 1. Little interest or pleasure in doing things: not at all 2. Feeling down, depressed, or hopeless: not at all 3. Trouble falling or staying asleep, or sleeping too much: not at all 4. Feeling tired or having little energy: not at all 5. Poor appetite or overeating: not at all 6. Feeling bad about yourself - or that you are a failure or have let yourself or your family down: not at all 7. Trouble concentrating on things, such as reading the newspaper or watching television: not at all 8. Moving or speaking so slowly that other people could have noticed. Or the opposite - being so fidgety or restless that you have been moving around a lot more than usual: not at all 9. Thoughts that you would be better off or of hurting yourself in some way: not at all Total score: 0 Depression Screening Interpretation: Negative Depression Screening Done: Yes 11909 - PHQ-9 Billing: Patient declined-do not bill Source: Developed by Drs. Julián Rodas, Candis Jonas, Ricci Ivan and colleagues, with an educational steve from [employer]. Thrive Questionnaire Date Thrive assessed: 09/10/25 I am a: Patient What is your living situation today?: I have a steady place to live Within the past 12 months, did the food you bought not last and you didn't have the money to get more?: Never true Within the past 12 months, did you worry whether your food would run out before you got money to buy more?: Never true Do you have trouble paying for medicines?: No Do you have trouble getting transportation to medical appointments?: Yes Do you have trouble paying your heating and electricity bill?: No Do you have trouble taking care of your child, family member or friend?: No Do you have trouble with day-to-day activities such as bathing, preparing meals, shopping, managing finances, etc.?: No Are you currently unemployed and looking for a job?: No Are you interested in more education?: No Please select the resources that you would like help with: None Currently or been in a relationship where the following occur: No concerns reported THRIVE Score: 1 AUDIT C Alcohol Use Questionnaire (AUDIT-C) 1. How often do you have a drink containing alcohol?: Never Total Score: 0 VINNIE-7 AMB Questionnaire VINNIE-7 Date VINNIE - 7 assessed: 04/19/25 Feeling nervous, anxious, or on edge: 0 = Not at all Not being able to stop or control worryin = Not at all Worrying too much about different things: 0 = Not at all Trouble relaxin = Not at all Being so restless that it is hard to sit still: 0 = Not at all Becoming easily annoyed or irritable: 0 = Not at all Feeling afraid as if something awful might happen: 0 = Not at all Total VINNIE-7 score (0-4 normal; 5-9 mild; 10-14 moderate; 15-21 severe): 0 Source: Developed by Drs. Julián Rodas, Candis Jonas, Ricci Ivan and colleagues, with an educational steve from [employer]. VINNIE-7 Assessment Billing VINNIE-7 Assessment Tool: VINNIE-7 Assessment 98375 Review of Systems Const Denies headache(s) Eyes Denies loss of vision ENT Denies vertigo, Denies dizziness, Denies headache(s) and Denies sore throat Card Denies chest pain, Denies leg edema and Denies lightheadedness Resp Denies cough, Denies hemoptysis and Denies wheezing GI Denies abdominal pain, Denies melena, Denies constipation, Denies diarrhea and Denies vomiting Denies dysuria, Denies urinary frequency and Denies urinary urgency Musc Reports abnormal gait, Reports back pain, Denies arthralgias, Denies joint swelling, Denies numbness and Denies tingling Neuro Denies Abnormal speech present, Reports abnormal gait, Denies behavioral changes, Denies vertigo, Denies dizziness, Denies headache(s), Denies loss of vision, Denies memory loss, Denies numbness and Denies tingling Psych Denies anxiety, Denies behavioral changes, Denies depression, Denies memory loss and Denies panic attacks Nathan/Lymph Denies easy bleeding and Denies easy bruising Aller/Immun Denies wheezing Physical exam (Primary Care) Vital Signs: Last Vital Signs Temp 97.3 F 09/11/25 09:46 Pulse 86 09/11/25 09:46 BP 126/62 09/11/25 09:46 Pulse Ox 96 09/11/25 09:46 Oxygen Delivery Method Room Air 09/11/25 09:46 BMI result Body Mass Index 29.8 Tobacco/Smoking Status: Tobacco use Status Tobacco use date assessed 09/11/25 09/11/25 09:50 Patient Tobacco Use Status Never used Tobacco 09/11/25 09:50 e-Cigarette/Vaping Use Never Used 09/11/25 09:50 PHQ-9: PHQ-9 Score PHQ-9: Total score 0 09/11/25 09:50 Depression Screening Interpretation: Negative Thrive Assessment: Date of Thrive Assessment Date Thrive assessed 09/10/25 09/11/25 09:50 Currently or been in a relationship where the following occur: No concerns reported Const General: healthy appearing, no acute distress, alert and awake Nutritional Appearance: well nourished Orientation/consciousness: oriented to person, oriented to place and oriented to time HENMT Ears: TM's normal bilaterally General nose exam: Normal nasal mucous membranes and turbinates present Eyes Conjunctivae: conjunctivae normal Sclerae: sclerae normal Pupils: Equal, round and reactive pupils present Neck Neck: Yes no lymphadenopathy and Yes no JVD Thyroid: Thyroid normal Carotids: no bruits Resp Effort & Inspection: normal respiratory effort and not tachypneic Auscultation: no crackles, no rales, no rhonchi and no wheezes Cardio Rate: regular rate Rhythm: regular rhythm Heart sounds: no murmurs and normal S1 and S2 GI Palpation (GI): Soft to palpation, nontender, no hepatomegaly and no splenomegaly Auscultation: normal bowel sounds Skin General skin exam: no rashes or lesions noted and dry skin Neuro General: oriented to person, oriented to place and oriented to time Cranial nerves: Yes Equal, round and reactive pupils present Speech: No Abnormal speech present Gait exam (Neuro): Normal gait present Motor exam (neuro): no tremor noted Extrem Right upper extremity: full ROM Left upper extremity: full ROM Right lower extremity: full ROM; no edema Left lower extremity: full ROM; no edema Psych Mental Status: mental status grossly normal Speech and movement: Normal speech and movement present Affect: normal affect Attitude: cooperative Thought process: Normal thought process present Coding Level of Care Code Est Pt Level 4 (93163) Diagnoses Primary hypertension I10 Hypertension type: primary hypertension Lumbar disc disease with radiculopathy M51.16 Mixed hyperlipidemia E78.2 Hyperlipidemia type: mixed hyperlipidemia Additional Codes VINNIE-7 Assessment Billing - VINNIE-7 Assessment Tool: VINNIE-7 Assessment 93004 ([id number]) Assessment & Plan Assessment & Plan (1) HTN (hypertension): Code(s): I10 - Essential (primary) hypertension Category: Medical Qualifiers: Hypertension type: primary hypertension Qualified Code(s): I10 - Essential (primary) hypertension Plan: Patient has been started on lisinopril 5 mg which has seem to be effective for his blood pressure. His blood pressure acceptable today in office and will continue current dose of lisinopril with goal blood pressure to remain below 140/90. (2) Lumbar disc disease with radiculopathy: Code(s): M51.16 - Intervertebral disc disorders with radiculopathy, lumbar region Category: Medical Plan: Patient has recently followed up with Neurology and pain management for his low back pain with a radiculopathy down right lower extremity. He has considering another injection. Otherwise he continues to try to be as physically active as he can, he reports gabapentin has been somewhat effective on reducing his pain. He reports his balance is still off though has not had any falls. Does have a cane available to him for times of long distance walking. (3) Hyperlipidemia: Code(s): E78.5 - Hyperlipidemia, unspecified Category: Medical Qualifiers: Hyperlipidemia type: mixed hyperlipidemia Qualified Code(s): E78.2 - Mixed hyperlipidemia Plan: Patient has been started on rosuvastatin 20 mg in now followed by Cardiology. Advised to get fasting labs done prior to his upcoming cardiology evaluation. Goal LDL to be below 100
[2025-09-11 09:46] VITALS: BP 126/62; PULSE 86; TEMP 36.3; O2SAT 96; BMI 29.8
--- OUTSIDE RECORDS SUMMARY | 2025-09-11 10:18 | XMS_ITS | Encounter Summary ---
Author Organization [employer] Address [address] [place] [address] Care Team Providers Care Fur Stretcher Name Role Phone Unavailable Primary Care Provider [...]
--- OUTSIDE RECORDS SUMMARY | 2025-09-11 10:18 | XMS_ITS | Clinical Summary ---
Author Organization [facility] [employer] Address [address] [place] [address] Care Team Providers Care Computer Support Specialist Instructor Name Role Phone Unavailable Primary Care Provider [...]
== END 2025-09-11 10:34 | disposition home or self-care (01) ==
LOC: HO.HMCH 09:32
PROVIDERS: PCP Physician Assistant; Visit Provider Physician Assistant
DX: I10 Essential (primary) hypertension (principal); M51.16 Intervertebral disc disorders with radiculopathy, lumbar region; E78.2 Mixed hyperlipidemia

== ENCOUNTER → 2025-09-11 09:31 | Outpatient (BNVA) | payer MEDICARE, SELFPAY | PROVIDERS: PCP Physician Assistant; Visit Provider Physician Assistant | DX: I10 Essential (primary) hypertension (principal); M51.16 Intervertebral disc disorders with radiculopathy, lumbar region; E78.2 Mixed hyperlipidemia; Z13.31 Encounter for screening for depression; Z79.899 Other long term (current) drug therapy | CPT/HCPCS: 96127; 99212 ==